=== PATIENT | male | born 1930 | race Caucasian/White ===

== ENCOUNTER 2016-05-26 10:33 | Inpatient (IN) ==
[2016-05-26] MEDS ORDERED: ASPIRIN 81 MG TAB.CHEW CHEWED ONE (10:55)
--- NOTE | 2016-05-26 10:59 | Emergency Department Note ---
Chest Pain HPI - General Chief Complaint: Chest Pain Stated Complaint: shortness of breath, chest pain Time Seen by Provider: 05/26/16 10:55 Source: patient, EMS Mode of arrival: EMS - History of Present Illness HPI Narrative: 85-year-old in by ambulance, complaining of left hip pain and a history of chest pain for several days. Complain of shortness of breath. Patient is a poor historian, unable to get an accurate history. sharp-like pain . Past several days, chronic shortness of breath. he is afebrile. - Related Data Home Medications Medication Instructions Recorded Confirmed Acetaminophen [Tylenol] 325 mg PO Q4HP PRN 05/26/16 05/26/16 Amantadine HCl [Amantadine] 100 mg PO DAILY 05/26/16 05/26/16 Aspirin [Aron Chewable Aspirin] 81 mg PO DAILY 05/26/16 05/26/16 Baclofen [Lioresal] 10 mg PO TID 05/26/16 05/26/16 Calcium/Mag Oxide/Vitamin D3 1 each PO DAILY 05/26/16 05/26/16 [Coral Calcium 1,000 mg Cap] Carvedilol [Coreg] 6.25 mg PO BID 05/26/16 05/26/16 Cholecalciferol (Vitamin D3) 4,000 unit PO DAILY 05/26/16 05/26/16 [Vitamin D3] Citalopram [Celexa] 20 mg PO DAILY 05/26/16 05/26/16 Diltiazem HCl [Cartia Xt] 240 mg PO DAILY 05/26/16 05/26/16 Gabapentin [Neurontin] 200 mg PO BID 05/26/16 05/26/16 Insulin NPH Hum/Reg Insulin Hm 5 unit SQ HS 05/26/16 05/27/16 [Humulin 70/30 Kwikpen] Insulin NPH Hum/Reg Insulin Hm 8 unit SQ DAILY 05/26/16 05/26/16 [Humulin 70/30 Kwikpen] Levothyroxine Sodium [Tirosint] 50 mcg PO DAILY 05/26/16 05/26/16 Mirtazapine [Remeron] 15 mg PO DAILY 05/26/16 05/26/16 Simethicone [Mylicon] 1 each PO TID 05/26/16 05/26/16 Spironolactone [Aldactone] 12.5 mg PO Q2D 05/26/16 05/26/16 Thymol/Chlorophyllin [Chlorophyll 1 each PO BID 05/26/16 05/26/16 3 mg Tablet] Warfarin [Coumadin] 3 mg PO DAILY 05/26/16 05/26/16 morphine SULFATE [Morphine Sulfate] 15 mg PO BID 05/26/16 05/26/16 morphine SULFATE [Morphine Sulfate] 15 mg PO DAILY 05/26/16 05/26/16 rOPINIRole HCL [Requip] 0.5 mg PO BID 05/26/16 05/26/16 Allergies Allergy/AdvReac Type Severity Reaction Status Date / Time From MIRAPEX AdvReac Mild INCREASED Uncoded 10/05/14 14:09 CONFUSION Review of Systems All systems ED: reviewed and negative except as stated. Constitutional: Denies: fever Eyes: Denies: eye pain ENT ED: Denies: ear pain Cardiovascular: Reports: chest pain Respiratory: Reports: cough, dyspnea. Denies: wheezes, hemoptysis Chest Pain PMH - Past Medical History Medical history: Reports: atrial fibrillation, other (parkinsons) Family history: Reports: unable to obtain - Social History smoking status: Former smoker Alcohol use: Reports: None Drug use: Reports: none Physical Exam - General Limitations: no limitations - Head Head exam: atraumatic - Eye Eye exam: Present: normal appearance - ENT ENT exam: normal exam - Neck Neck exam: Present: normal inspection - Chest Chest inspection: Present: normal inspection - Respiratory Respiratory exam: Present: normal lung sounds bilaterally. Absent: respiratory distress - Cardiovascular Cardiovascular exam: Present: regular rate, normal rhythm. Absent: bradycardia , tachycardia - Abdominal Exam Abdominal exam: Present: soft. Absent: distention, tenderness - Extremities Exam Extremities exam: Present: normal inspection, full ROM. Absent: tenderness - Back Exam Back exam: Present: normal inspection, full ROM. Absent: tenderness - Neurological Exam Neurological exam: Present: alert, oriented X3, CN II-XII intact - Psychiatric Psychiatric exam: Present: normal affect, normal mood. Absent: depressed - Skin Skin exam: Present: warm, dry Course Vital Signs Temperature 97.4 F L 05/26/16 10:42 Pulse Rate 112 H 05/26/16 10:42 Respiratory Rate 36 H 05/26/16 10:42 Blood Pressure 170/100 05/26/16 10:42 Pulse Oximetry (%) 100 05/26/16 10:42 Temperature 98.4 F 05/27/16 04:00 Pulse Rate 107 H 05/27/16 07:38 Respiratory Rate 22 05/27/16 07:38 Blood Pressure 121/85 05/27/16 04:00 Pulse Oximetry (%) 95 05/27/16 07:36 Chest Pain - MDM Narrative Medical decision making narrative: left pneumonia on chest xray. Pt DNR comfort measures but antibiotics ok.. will hold celexa, started on rocephin and levaquin - Lab Data Result diagrams: 05/27/16 04:07 05/27/16 04:07 Lab Results 05/26/16 05/26/16 05/26/16 Range/Units 11:02 11:02 11:02 WBC 14.4 H (4.5-11.0) K/mcL RBC 3.67 L (4.50-5.90) M/mcL Hgb 11.8 L (13.5-16.5) g/dL Hct 36.8 L (41.0-55.0) % MCV 100.2 H (80.0-100.0) fL MCH 32.1 (26.0-34.0) pg MCHC 32.0 (31.0-36.0) g/dL RDW 14.9 H (11.5-14.5) % Plt Count 165 (140-440) K/mcL MPV 8.9 (7.4-10.4) fL Gran % 86.0 H (38.0-78.0) % Lymph % (Auto) 8.0 L (15.5-49.0) % [place] % (Auto) 5.4 (1.0-9.0) % Eos % (Auto) 0.6 (0.0-7.0) % Baso % (Auto) 0 (0.0-2.0) % Gran # 12.4 H (1.8-8.0) K/mcL Lymph # 1.1 L (1.5-4.8) K/mcL [place] # 0.8 (0.1-0.9) K/mcL Eos # 0.1 (0.0-0.7) K/mcL Baso # 0 (0.0-0.3) K/mcL Total Counted Seg Neutrophils % (38-78) % Band Neutrophils % Lymphocytes % (15-49) % Monocytes % (Manual) (1-9) % Myelocytes % (0-0) % Platelet Estimate (NORMAL) RBC Morphology (NORMAL) Macrocytosis (NONE SEEN) PT (11.9-14.5) sec INR (0.9-1.1) VBG Lactic Acid (0.5-2.2) mmol/L Sodium 142 (133-145) mmol/L Potassium 4.5 (3.3-5.1) mmol/L Chloride 99 (96-108) mmol/L Carbon Dioxide 27 (22-30) mmol/L Anion Gap 16.0 (8-16) BUN 28 H (8-23) mg/dl Creatinine 1.2 (0.7-1.2) mg/dl GFR Calculation 55 Glucose 123 H (70-105) mg/dL Hemoglobin A1c (4.0-6.0) % HGB Estim Average Glucose mg/dL Calcium 9.2 (8.6-10.4) mg/dl Total Bilirubin 0.7 (0.0-1.0) mg/dL AST 15 (0-37) U/l ALT < 5 (0-40) U/l Alkaline Phosphatase 127 H (39-117) U/L Total Creatine Kinase 48 (24-195) IU/L CK-MB (CK-2) 1.8 (0-4.9) ng/ml Myoglobin 84 H (28-72) ng/ml Troponin T < 0.01 (0-0.03) ng/ml Total Protein 6.6 (5.9-8.4) gm/dL Albumin 3.6 (3.2-5.2) gm/dL Globulin 3.0 (2.2-3.7) gm/dL Albumin/Globulin Ratio 1.2 (1.0-2.3) 05/26/16 05/26/16 05/26/16 Range/Units 11:02 11:02 11:02 WBC (4.5-11.0) K/mcL RBC (4.50-5.90) M/mcL Hgb (13.5-16.5) g/dL Hct (41.0-55.0) % MCV (80.0-100.0) fL MCH (26.0-34.0) pg MCHC (31.0-36.0) g/dL RDW (11.5-14.5) % Plt Count (140-440) K/mcL MPV (7.4-10.4) fL Gran % (38.0-78.0) % Lymph % (Auto) (15.5-49.0) % [place] % (Auto) (1.0-9.0) % Eos % (Auto) (0.0-7.0) % Baso % (Auto) (0.0-2.0) % Gran # (1.8-8.0) K/mcL Lymph # (1.5-4.8) K/mcL [place] # (0.1-0.9) K/mcL Eos # (0.0-0.7) K/mcL Baso # (0.0-0.3) K/mcL Total Counted 100 Seg Neutrophils % 90 H (38-78) % Band Neutrophils % Not Reportable Lymphocytes % 5 L (15-49) % Monocytes % (Manual) 3 (1-9) % Myelocytes % 2 H (0-0) % Platelet Estimate Normal (NORMAL) RBC Morphology Abnorm A (NORMAL) Macrocytosis 1+ A (NONE SEEN) PT 20.4 H (11.9-14.5) sec INR 1.7 H (0.9-1.1) VBG Lactic Acid 2.6 H (0.5-2.2) mmol/L Sodium (133-145) mmol/L Potassium (3.3-5.1) mmol/L Chloride (96-108) mmol/L Carbon Dioxide (22-30) mmol/L Anion Gap (8-16) BUN (8-23) mg/dl Creatinine (0.7-1.2) mg/dl GFR Calculation Glucose (70-105) mg/dL Hemoglobin A1c (4.0-6.0) % HGB Estim Average Glucose mg/dL Calcium (8.6-10.4) mg/dl Total Bilirubin (0.0-1.0) mg/dL AST (0-37) U/l ALT (0-40) U/l Alkaline Phosphatase (39-117) U/L Total Creatine Kinase (24-195) IU/L CK-MB (CK-2) (0-4.9) ng/ml Myoglobin (28-72) ng/ml Troponin T (0-0.03) ng/ml Total Protein (5.9-8.4) gm/dL Albumin (3.2-5.2) gm/dL Globulin (2.2-3.7) gm/dL Albumin/Globulin Ratio (1.0-2.3) 05/26/16 Range/Units 11:02 WBC (4.5-11.0) K/mcL RBC (4.50-5.90) M/mcL Hgb (13.5-16.5) g/dL Hct (41.0-55.0) % MCV (80.0-100.0) fL MCH (26.0-34.0) pg MCHC (31.0-36.0) g/dL RDW (11.5-14.5) % Plt Count (140-440) K/mcL MPV (7.4-10.4) fL Gran % (38.0-78.0) % Lymph % (Auto) (15.5-49.0) % [place] % (Auto) (1.0-9.0) % Eos % (Auto) (0.0-7.0) % Baso % (Auto) (0.0-2.0) % Gran # (1.8-8.0) K/mcL Lymph # (1.5-4.8) K/mcL [place] # (0.1-0.9) K/mcL Eos # (0.0-0.7) K/mcL Baso # (0.0-0.3) K/mcL Total Counted Seg Neutrophils % (38-78) % Band Neutrophils % Lymphocytes % (15-49) % Monocytes % (Manual) (1-9) % Myelocytes % (0-0) % Platelet Estimate (NORMAL) RBC Morphology (NORMAL) Macrocytosis (NONE SEEN) PT (11.9-14.5) sec INR (0.9-1.1) VBG Lactic Acid (0.5-2.2) mmol/L Sodium (133-145) mmol/L Potassium (3.3-5.1) mmol/L Chloride (96-108) mmol/L Carbon Dioxide (22-30) mmol/L Anion Gap (8-16) BUN (8-23) mg/dl Creatinine (0.7-1.2) mg/dl GFR Calculation Glucose (70-105) mg/dL Hemoglobin A1c 6.0 (4.0-6.0) % HGB Estim Average Glucose 126 mg/dL Calcium (8.6-10.4) mg/dl Total Bilirubin (0.0-1.0) mg/dL AST (0-37) U/l ALT (0-40) U/l Alkaline Phosphatase (39-117) U/L Total Creatine Kinase (24-195) IU/L CK-MB (CK-2) (0-4.9) ng/ml Myoglobin (28-72) ng/ml Troponin T (0-0.03) ng/ml Total Protein (5.9-8.4) gm/dL Albumin (3.2-5.2) gm/dL Globulin (2.2-3.7) gm/dL Albumin/Globulin Ratio (1.0-2.3) Disposition Clinical Impression: Pneumonia Disposition: Xfer As Inpt ([facility]) Condition: Undetermined
[2016-05-26 11:48] LABS: Basophils # (Auto) 0 K/mcL (0.0-0.3); Basophils % (Auto) 0 % (0.0-2.0); Eosinophils # (Auto) 0.1 K/mcL (0.0-0.7); Eosinophils % (Auto) 0.6 % (0.0-7.0); Lymphocytes # (Auto) 1.1 K/mcL (1.5-4.8); Mean Cell Volume 100.2 fL (80.0-100.0); Mean Corpuscular Hemoglobin 32.1 pg (26.0-34.0); Monocytes # (Auto) 0.8 K/mcL (0.1-0.9); Monocytes % (Auto) 5.4 % (1.0-9.0); Platelet Count 165 K/mcL (140-440); RBC 3.67 M/mcL (4.50-5.90); Red Cell Distribution Width 14.9 % (11.5-14.5)
--- NOTE | 2016-05-26 11:55 | XRay Report ---
CLINICAL INFORMATION: Parkinson's disease. Dyspnea. TECHNIQUE: AP and lateral chest x-ray performed with the patient on a stretcher. COMPARISON: Previous chest x-rays dated 11/09/2012, 04/09/2010, 06/16/2009. FINDINGS: Left lower lobe consolidation consistent with pneumonia. Findings consistent with left pleural effusion. Pulmonary vascularity is prominent consistent pulmonary congestion. No definite pulmonary edema. Heart size is within normal limits and unchanged since 2012. No acute thoracic compression fracture. Degenerative disease in both shoulders. IMPRESSION: Left lower lobe consolidation and probable left pleural effusion. Appearance is consistent with pneumonia. Interpreted and Authenticated by: Burt Dejesus 05/26/16
--- NOTE | 2016-05-26 11:58 | XRay Report ---
CLINICAL INFORMATION: Left hip pain. No trauma. TECHNIQUE: AP pelvis. Lateral left hip. COMPARISON: None. FINDINGS: Moderate narrowing of both hip joint spaces. Changes are bilaterally symmetric. No significant acetabular or femoral head sclerosis or subchondral cystic change. Articular surface of the left femoral head is round and smooth. No evidence for avascular necrosis. No lytic lesions. Pelvis is negative. No lytic lesions. No fracture. Degenerative change at the pubic symphysis. Sacrum is not optimally visualized but appears normal. Large amount of fecal material within the colon suggests constipation. IMPRESSION: 1. Moderate degenerative disease in the left hip. Changes are bilaterally symmetric. 2. No acute abnormality. Interpreted and Authenticated by: Burt Dejesus 05/26/16
[2016-05-26 12:09] LABS: ALT/SGPT < 5 U/l (0-40); Albumin 3.6 gm/dL (3.2-5.2); Albumin/Globulin Ratio 1.2 (1.0-2.3); Alkaline Phosphatase 127 U/L (39-117); Blood Urea Nitrogen 28 mg/dl (8-23); Creatine Kinase 48 IU/L (24-195); Creatine Kinase MB 1.8 ng/ml (0-4.9); Myoglobin 84 ng/ml (28-72)
[2016-05-26] MEDS ORDERED: cefTRIAXone 1 GM in DEXTROSE 5% IN WATER 50 ML IV ONE (12:33)
[2016-05-26] MEDS ORDERED: LEVOFLOXACIN 500 MG/100 ML BAG IV ONE (12:35)
[2016-05-26 13:58] LABS: Lymphocytes % 5 % (15-49); Macrocytosis 1+ (NONE SEEN); Monocytes % (Manual) 3 % (1-9); Myelocytes % 2 % (0-0); Platelet Estimate NORMAL (NORMAL); RBC Morphology ABNORM (NORMAL); Segmented Neutrophils % 90 % (38-78)
[2016-05-26] MEDS ORDERED: MAGNESIUM HYDROXIDE 30 ML ORAL.SUSP PO PRN (17:02)
[2016-05-26] MEDS ORDERED: ONDANSETRON 4 MG/2 ML VIAL IV PRN (17:02)
[2016-05-26] MEDS ORDERED: ACETAMINOPHEN 325 MG TABLET PO PRN (17:02)
[2016-05-26] MEDS ORDERED: DOCUSATE SODIUM 100 MG CAPSULE PO PRN (17:02)
[2016-05-26] MEDS ORDERED: DEXTROSE 50% 50 ML VIAL IV PRN (17:02)
[2016-05-26] MEDS: DEXTROSE 5%-1/2NS W/10MEQ KCL 1,000 ML IV SCH (17:35)
[2016-05-26] MEDS: INSULIN LISPRO 1 UNIT/0.01 ML UNIT SQ SCH ×2 (17:56→21:26)
[2016-05-26] MEDS: AZITHROMYCIN 500 MG in DEXTROSE 5% IN WATER 250 ML IV SCH (19:04)
[2016-05-26] MEDS: ALBUTEROL SULFATE 2.5 MG/3 ML NEBULIZER NEB SCH (19:04)
--- NOTE | 2016-05-26 19:14 | Internal Med History&Physical ---
Medical - H&P: HPI Patient information: Note initiated : 05/26/16 at 6:58 pm Service Date, if different from initiated Date: [] Patient: August Nath 85 y/o M admitted on 05/26/16 for shortness of breath, chest pain. Chief Complaint: [] History of present illness: Mr. Nath is a 85 year old male as Parkinson's disease and diabetes, and resides at a [facility]. He reports he has not felt well for several days, and his niece was calledtodayby the staff to say that he had a fever and hypoxia and shortness of breath. He was transported to the emergency room for further evaluation. There he was found to have a left lower lobe pneumonia, and O2 saturations in the 80s, as well as leukocytosis and elevated lactic acid. the patient was somewhat obtunded on arrival, butseveral hours after ER treatment is starting to feel better. He notes that he has been feeling a little short of breath for the past week or so, and does have been having some chest discomfort as well. He mentions he cannot eat, but has difficulty articulating if that is because he is not hungry. His niece notes that his dentures tend to fall out. The patientsays he has been feeling a little dizzy, and believes he has had a cough for a week or 2, which is mostly nonproductive. He has been feeling short of breath. He says he has both diarrhea and constipation, but that that is chronic. He also has chronic urinary frequency. He otherwise denies chills, headaches, ear pain or sore throat. He denies abdominal pain, nausea or vomiting . Past medical history: Per [facility] records: Type 2 diabetes parkinson's disease Atrial fibrillation Hyperlipidemia Depression and anxiety GERD Hypothyroidism Hypertension Non-thrombocytopenic purpura Bursitis Constipation Vitamin D deficiency Dry eye syndrome Generalized osteoarthritis Current medications: Tylenol 325 mg every 4 hours when necessary Amantadine 50 mg per 5 mL. 10 mL by mouth daily Artificial tears 1 drop in both eyes 3 times a day Aspirin 81 mg daily at bedtime Baclofen 10 mg 3 times a day Coreg 6.25 mg by mouth twice a day Polyethylene glycol 17 g by mouth daily Protonix 40 mg daily pycnogenol one daily Requip 0.5 mg twice a day Senna 2 tabs daily at bedtime Simethicone 80 mg 4 times a day Sinemet 38286 tab once a day, 2 tabs once a day Sinemet 38369 1 tab 5 times a day Spironolactone 12.5 mgevery other day Celexa 20 mgdaily chloral fill tablet 1 twice a day Calcium one tablet daily Coumadin 3 mg daily at bedtime Diltiazem ER 240 mg daily Docusate sodium 250 mg every morning Dulcolax suppository when necessary Fleets enema when necessary gabapentin 200 mg 3 times a day Humulin 70/38 units every morning, 5 units every afternoon levothyroxine 50 g daily at bedtime Milk of magnesia when necessary Mirtazapine 15 mg daily at bedtime Morphine 15 mg daily when necessary chest pain Morphine 15 mg twice a day Nitroglycerin patch 0.1 mg per hour daily at bedtimeS sublingual nitroglycerin when necessary Triamcinolone cream 0.1% apply to arms and neck every shift when necessary Vitamin D 4000 units daily Allergies:Mirapex family history; Mother had liver cancer. Mother and sister and brother had diabetes. Social history: Patient quit smoking 20 years ago. He has not had alcohol for many years. He has not used drugs. He resides at the [facility]. Medical - H&P: Meds Home Medications Medication Instructions Recorded Confirmed Type Acetaminophen [Tylenol] 325 mg PO Q4HP PRN 05/26/16 05/26/16 History Amantadine HCl [Amantadine] 100 mg PO DAILY 05/26/16 05/26/16 History Aspirin [Aron Chewable Aspirin] 81 mg PO DAILY 05/26/16 05/26/16 History Baclofen [Lioresal] 10 mg PO TID 05/26/16 05/26/16 History Calcium/Mag Oxide/Vitamin D3 1 each PO DAILY 05/26/16 05/26/16 History [Coral Calcium 1,000 mg Cap] Carvedilol [Coreg] 6.25 mg PO BID 05/26/16 05/26/16 History Cholecalciferol (Vitamin D3) 4,000 unit PO DAILY 05/26/16 05/26/16 History [Vitamin D3] Citalopram [Celexa] 20 mg PO DAILY 05/26/16 05/26/16 History Diltiazem HCl [Cartia Xt] 240 mg PO DAILY 05/26/16 05/26/16 History Gabapentin [Neurontin] 200 mg PO BID 05/26/16 05/26/16 History Insulin NPH Hum/Reg Insulin Hm 5 unit SQ 05/26/16 History [Humulin 70/30 Kwikpen] Insulin NPH Hum/Reg Insulin Hm 8 unit SQ DAILY 05/26/16 05/26/16 History [Humulin 70/30 Kwikpen] Levothyroxine Sodium [Tirosint] 50 mcg PO DAILY 05/26/16 05/26/16 History Mirtazapine [Remeron] 15 mg PO DAILY 05/26/16 05/26/16 History Simethicone [Mylicon] 1 each PO TID 05/26/16 05/26/16 History Spironolactone [Aldactone] 12.5 mg PO Q2D 05/26/16 05/26/16 History Thymol/Chlorophyllin [Chlorophyll 1 each PO BID 05/26/16 05/26/16 History 3 mg Tablet] Warfarin [Coumadin] 3 mg PO DAILY 05/26/16 05/26/16 History morphine SULFATE [Morphine Sulfate] 15 mg PO BID 05/26/16 05/26/16 History morphine SULFATE [Morphine Sulfate] 15 mg PO DAILY 05/26/16 05/26/16 History rOPINIRole HCL [Requip] 0.5 mg PO BID 05/26/16 05/26/16 History Allergies Allergy/AdvReac Type Severity Reaction Status Date / Time From MIRAPEX AdvReac Mild INCREASED Uncoded 10/05/14 14:09 CONFUSION Medical - H&P: Exam - Constitutional Vitals: Temp Pulse Resp BP Pulse Ox 98.3 F 92 H 22 120/73 98 05/26/16 16:45 05/26/16 16:45 05/26/16 16:45 05/26/16 16:45 05/26/16 16:45 Exam: on exam,initially the patient did appear somewhat obtunded, but he was able to wake up and answer questions. He has very coarse gurgling respirations. he reports he is having some persistent left hip pain, of uncertain etiology, but that's been going on for a while. Head: Normocephalic, atraumatic. Ears: TMs and canals are fairly clear. eyes: PERRLA, EOMI, anicteric. Pharynx: Patient is edentulous. Mucosa is markedly dry. Neck: Somewhat stiff. But does not appear painful. Neck veins do appear full. There is no obviouslymphadenopathy, bruits, thyromegaly. Cardiac exam:rhythm appears irregularly irregular. no murmurs or rubs are appreciated. Lungs: The patient has some crackles noted at the left base,but generally speaking breath sounds are very loud and coarse throughout, with expiratory wheezes and a lot of gurgling upper airway noises well. Abdomen: Is soft and nontender with no obvious masses. Extremities: Show just a trace edema. He does have compression hose in place. Pulses are not easily palpable. Neurologic: The patient was somewhat sleepy, but was ableto wake up enough to answer questions. His voice is very soft and difficult to understand. He does appear oriented. He answers questions appropriately. He is able to follow commands. He does appear very generally weak, but I did not see any focal weakness. I did not notice any obvious tremor today. Skin exam: I do not note any worrisome skin lesions. He does have some chronic stasis dermatitis changes on his legs. Medical - H&P: Reslt - Labs CBC & Chem 7: 05/26/16 11:02 05/26/16 11:02 Labs: ifferential shows 86% granulocytes, with 12,400 absolute granulocyte count. There is 1+ macrocytosis. Pro time is 20 with INR of 1.7 Alkaline phosphatase is 127, but other LFTs essentially normal. Myoglobin is mildly elevated at 84. Troponin is normal. MRSA screen is negative. Chest x-ray shows left lower lobe consolidation consistent with pneumonia and left pleural effusion. There may be mild pulmonary vascular congestion. X-ray of the left hip shows moderate degenerative disease . There is a large amount of stool in the colon.next EKG showsan irregularly irregular rhythm, with evidence of previous inferior CT There is slow R-wave progression consistent with possible previousanterior CT. This is similar in appearance to an x-ray from August 2015. Medical - H&P: A/P (1) LLL pneumonia Current visit: Yes Status: Acute (2) DM type 2 (diabetes mellitus, type 2) Current visit: Yes Status: Acute (3) Parkinson disease Current visit: Yes Status: Acute (4) Atrial fibrillation Current visit: Yes Status: Acute (5) Left hip pain Current visit: Yes Status: Acute - Narrative A/P Narrative: 31. Pulmonary. -This patient presents with signs and symptoms of acute respiratory failure due to left lower lobe pneumonia, associated with hypoxia and leukocytosis. -The patient has been admitted to telemetry, for aggressive treatment with IV antibiotics, nebulized bronchodilators, oxygen. Incentive spirometry is also been ordered. He will be suctioned when necessary. #2. CODE STATUS: Patient has a DNR CODE STATUS, but his POA, his niece, would like to pursue aggressive treatment for pneumonia ,outside of ventilation and CPR. #3. DVT prophylaxis:continue Coumadin. Adjust dosage to keep INR between 2 and 3. #4. Cardiac. History of atrial fibrillation and ischemic cardiomyopathy. Continue current medications. #5. Neurologic. History of Parkinson's disease. He is also somewhat obtunded today, likely related to his acute illness. Continue usual Parkinson's medications, as tolerated. #6. Left hip pain, uncertain etiology. Pain meds when necessary. This visit took approximately 65 minutes, to [facility], review his case with the ER [facility] and with the patient's niece, interview and examine him, and write orders. Medical - H&P: Qual - VTE Deep Vein Thrombosis/Pulmonary Embolism Present on Admission: No
[2016-05-26] MEDS: INSULIN, 75/25 NPL/LISPRO 1 UNIT/0.01 ML UNIT SQ SCH (20:58)
[2016-05-26] MEDS: WARFARIN 3 MG TABLET PO SCH (20:59)
[2016-05-26] MEDS ORDERED: INSULIN NPH HUM SQ SCH (21:00)
[2016-05-26] MEDS ORDERED: [UNRECOGNIZED DRUG - OTHER] SQ SCH (21:00)
[2016-05-26] MEDS ORDERED: REG INSULIN SQ SCH (21:00)
[2016-05-26] MEDS: rOPINIRole 0.25 MG TABLET PO SCH (21:22)
[2016-05-26] MEDS: GABAPENTIN 100 MG CAPSULE PO SCH (21:22)
[2016-05-26] MEDS: BACLOFEN 10 MG TABLET PO SCH (21:24)
[2016-05-26] MEDS: morphine 15 MG TABLET PO SCH (21:25)
[2016-05-26] MEDS: CARVEDILOL 6.25 MG TABLET PO SCH (21:25)
[2016-05-26] MEDS: [UNRECOGNIZED DRUG - OTHER] PO SCH (21:26)
[2016-05-27] MEDS: ALBUTEROL SULFATE 2.5 MG/3 ML NEBULIZER NEB SCH ×4 (01:19→19:20)
[2016-05-27] MEDS: DEXTROSE 5%-1/2NS W/10MEQ KCL 1,000 ML IV SCH (05:38)
[2016-05-27 07:21] LABS: ALT/SGPT 6 U/l (0-40); Albumin 2.9 gm/dL (3.2-5.2); Alkaline Phosphatase 101 U/L (39-117); Blood Urea Nitrogen 27 mg/dl (8-23)
[2016-05-27 07:31] LABS: Basophils # (Auto) 0 K/mcL (0.0-0.3); Basophils % (Auto) 0.3 % (0.0-2.0); Eosinophils # (Auto) 0.1 K/mcL (0.0-0.7); Granulocytes % (Auto) 82.6 % (38.0-78.0); Lymphocytes # (Auto) 0.6 K/mcL (1.5-4.8); Lymphocytes % (Auto) 8.9 % (15.5-49.0); Mean Corpuscular HGB Conc 33.3 g/dL (31.0-36.0); Mean Corpuscular Hemoglobin 32.3 pg (26.0-34.0); Monocytes # (Auto) 0.5 K/mcL (0.1-0.9); Monocytes % (Auto) 7.2 % (1.0-9.0); Platelet Count 106 K/mcL (140-440); RBC 3.35 M/mcL (4.50-5.90); Red Cell Distribution Width 13.7 % (11.5-14.5)
[2016-05-27] MEDS: INSULIN LISPRO 1 UNIT/0.01 ML UNIT SQ SCH ×4 (08:50→20:52)
[2016-05-27] MEDS: LEVOTHYROXINE 50 MCG TABLET PO SCH (08:56)
[2016-05-27] MEDS: CALCIUM W/VIT D3 500 MG TABLET PO SCH (08:57)
[2016-05-27] MEDS: rOPINIRole 0.25 MG TABLET PO SCH ×2 (08:57→20:53)
[2016-05-27] MEDS: GABAPENTIN 100 MG CAPSULE PO SCH ×2 (08:57→20:53)
[2016-05-27] MEDS: DILTIAZEM 240 MG CAP.XL.24H PO SCH (08:57)
[2016-05-27] MEDS: morphine 15 MG TABLET PO SCH ×2 (08:58→20:52)
[2016-05-27] MEDS: ASPIRIN 81 MG TAB.CHEW PO SCH (08:58)
[2016-05-27] MEDS: BACLOFEN 10 MG TABLET PO SCH ×3 (08:58→20:52)
[2016-05-27] MEDS: MIRTAZAPINE 15 MG TABLET PO SCH (08:58)
[2016-05-27] MEDS: VITAMIN D3 1,000 UNIT TABLET PO SCH (08:59)
[2016-05-27] MEDS: CITALOPRAM 20 MG TABLET PO SCH (08:59)
[2016-05-27] MEDS: CARVEDILOL 6.25 MG TABLET PO SCH ×2 (08:59→20:51)
[2016-05-27] MEDS ORDERED: [UNRECOGNIZED DRUG - OTHER] SQ SCH (09:00)
[2016-05-27] MEDS ORDERED: REG INSULIN SQ SCH (09:00)
[2016-05-27] MEDS ORDERED: INSULIN NPH HUM SQ SCH (09:00)
[2016-05-27] MEDS: AMANTADINE HCL 100 MG CAPSULE PO SCH (09:09)
[2016-05-27] MEDS: INSULIN, 75/25 NPL/LISPRO 1 UNIT/0.01 ML UNIT SQ SCH ×2 (09:13→17:25)
[2016-05-27] MEDS: [UNRECOGNIZED DRUG - OTHER] PO SCH ×2 (09:16→19:38)
[2016-05-27] MEDS: cefTRIAXone 1 GM in DEXTROSE 5% IN WATER 50 ML IV SCH (09:16)
[2016-05-27] MEDS: AZITHROMYCIN 500 MG in DEXTROSE 5% IN WATER 250 ML IV SCH (09:47)
--- NOTE | 2016-05-27 10:45 | Internal Med Progress Note ---
Medical - PN: Subj Patient information: Note initiated : 05/27/16 at 10:45 am Service Date, if different from initiated Date: [] Patient: August Nath 85 y/o M admitted on 05/26/16 for shortness of breath, chest pain. Chief Complaint: [] Interval history: May 26, 2016:History of present illness: Mr. Nath is a 85 year old male as Parkinson's disease and diabetes, and resides at a [place] [facility]. He reports he has not felt well for several days, and his niece was called todayby the staff to say that he had a fever and hypoxia and shortness of breath. He was transported to the emergency room for further evaluation. There he was found to have a left lower lobe pneumonia, and O2 saturations in the 80s, as well as leukocytosis and elevated lactic acid. the patient was somewhat obtunded on arrival, but several hours after ER treatment is starting to feel better. He notes that he has been feeling a little short of breath for the past week or so, and does have been having some chest discomfort as well. He mentions he cannot eat, but has difficulty articulating if that is because he is not hungry. His niece notes that his dentures tend to fall out. The patient says he has been feeling a little dizzy, and believes he has had a cough for a week or 2, which is mostly nonproductive. He has been feeling short of breath. He says he has both diarrhea and constipation, but that that is chronic. He also has chronic urinary frequency. He otherwise denies chills, headaches, ear pain or sore throat. He denies abdominal pain, nausea or vomiting. May 27, 2016: Today, the patient says he is feeling a little better. He is not having as much left hip pain. He is still having a loose wet cough, and moderate shortness of breath, but says overall he feels a little better. otherwise, he denies subjective fever or chills and anynew chest pain over his chronic chest pain. He denies significant abdominal pain, nausea or vomiting. Nurses noted he is still incontinent of both stool and urine, which they think is his baseline, although my understanding is that it may not be. Speech is still very soft and difficult to understand, and muscles are still somewhat rigid due to his Parkinson's. - Constitutional Vitals: Vital Signs Temp Pulse Resp BP Pulse Ox 98.8 F 118 H 20 149/109 97 05/27/16 08:00 05/27/16 08:00 05/27/16 08:00 05/27/16 08:00 05/27/16 08:00 Period Temp Pulse Resp BP Sys/Woodward Pulse Ox Last 24 Hr 97.6 F-98.8 F 87-118 12-22 101-149/66-109 92-97 Intake and Output 05/26/16 05/27/16 05/27/16 21:59 05:59 13:59 Intake Total 100 / 100 952 / 952 298 / 298 Output Total Balance 99 / 99 951 / 951 298 / 298 Weight 169 lb 14.4 oz Intake & Output: Intake & Output 05/26/16 05/27/16 05/27/16 21:59 05:59 13:59 Intake Total 100 / 100 952 / 952 298 / 298 Output Total Balance 99 / 99 951 / 951 298 / 298 Weight 169 lb 14.4 oz Intake: IV 100 / 100 902 / 902 298 / 298 Dextrose 5% in Water 250 250 / 250 ml @ 250 mls/hr IV Q24H ION with Zithromax 500 mg Rx#:[id number] Dextrose 5%-1/2Ns W/10Meq 902 / 902 KCl 1,000 ml @ 75 mls/hr IV .[id number] ION Rx#: [id number] LEVAQUIN 500 mg In 100 ml 100 / 100 @ 100 mls/hr IV ONCE ONE Rx#:[id number] Dextrose 5% in Water 50 48 / 48 ml @ 100 mls/hr IV Q24H ION with Rocephin 1 gm Rx #:[id number] Oral 50 / 50 Output: # of times incontinent of urine Exam: n exam, he is a frail elderly man, who is sleeping in bed with his head hunched forward which the nurses noticed due to his kyphosis. He awakens fairly easily to verbal stimulation. cardiac exam shows an irregularly irregular rhythm, without obvious murmurs or rubs. Lungs:He continues to have gurgling upper airway sounds. He has rales and rhonchi in the left lower and mid lung lawson. He has some soft expiratory wheezing diffusely. Lung lawson to seem a bit clearer than yesterday. Abdomen: Is soft and nontender. Extremities: Show minimal edema Neurologic:Not much tremor is noted today, but he continues to have what appears to be psychomotor slowing and rigidity. Medical - PN: Obj Da - Labs CBC & Chem 7: 05/27/16 04:07 05/27/16 04:07 Labs: Abnormal Lab Results 05/27/16 05/27/16 05/27/16 09:05 04:07 04:07 RBC 3.35 L Hgb 10.8 L Hct 32.5 L Plt Count 106 L Gran % 82.6 H Lymph % (Auto) 8.9 L Lymph # 0.6 L PT 26.1 H INR 2.3 H BUN 27 H Glucose 120 H Calcium 8.5 L Total Protein 5.8 L Albumin 2.9 L May 26: Troponin is normal. MRSA screen is negative. Chest x-ray shows left lower lobe consolidation consistent with pneumonia and left pleural effusion. There may be mild pulmonary vascular congestion. X-ray of the left hip shows moderate degenerative disease . There is a large amount of stool in the colon.next EKG shows an irregularly irregular rhythm, with evidence of previous inferior UT There is slow R-wave progression consistent with possible previousanterior UT. This is similar in appearance to an x-ray from August 2015. Meds: Medications Acetaminophen (Tylenol) 650 mg PO Q6HP PRN PRN Reason: PAIN/FEVER > 101 Albuterol Sulfate (Ventolin) 2.5 mg NEB Q6HRT ON LICENSE OF [facility] Last Admin: 05/27/16 07:25 Dose: 2.5 mg Amantadine HCl (Amantadine) 100 mg PO DAILY ON LICENSE OF [facility] Last Admin: 05/27/16 09:09 Dose: Not Given Aspirin (Aspirin) 81 mg PO DAILY ON LICENSE OF [facility] Last Admin: 05/27/16 08:58 Dose: 81 mg Baclofen (Lioresal) 10 mg PO TID ON LICENSE OF [facility] Last Admin: 05/27/16 08:58 Dose: 10 mg Calcium/Vitamin D (Calcium W/Vit D3) 500 mg PO DAILY ON LICENSE OF [facility] Last Admin: 05/27/16 08:57 Dose: 500 mg Carvedilol (Coreg) 6.25 mg PO BID ON LICENSE OF [facility] Last Admin: 01/24/17 08:59 Dose: 6.25 mg Citalopram Hydrobromide (Celexa) 20 mg PO DAILY ON LICENSE OF [facility] Last Admin: 05/27/16 08:59 Dose: 20 mg Dextrose (Dextrose 50%) 0 ml IV UD PRN PRN Reason: Hypoglycemia Diagnostic Test (Pha) (Accu-Chek) 1 each FS ACHS ON LICENSE OF [facility] Last Admin: 05/27/16 08:50 Dose: 1 each Diltiazem HCl (Cardizem Cd) 240 mg PO DAILY ON LICENSE OF [facility] Last Admin: 05/27/16 08:57 Dose: 240 mg Docusate Sodium (Colace) 100 mg PO BID PRN PRN Reason: Constipation Gabapentin (Neurontin) 200 mg PO BID ON LICENSE OF [facility] Last Admin: 05/27/16 08:57 Dose: 200 mg Azithromycin 500 mg/ Dextrose 250 mls @ 250 mls/hr IV Q24H ON LICENSE OF [facility] Stop: 05/28/16 18:59 Last Admin: 05/27/16 09:47 Dose: 250 mls/hr Potassium Chloride/Dextrose/Sod Cl (Dextrose 5%-1/2ns W/10meq Kcl) 1,000 mls @ 75 mls/hr IV .[id number] ON LICENSE OF [facility] Last Admin: 05/27/16 05:38 Dose: 75 mls/hr Ceftriaxone Sodium 1 gm/ (Dextrose) 50 mls @ 100 mls/hr IV Q24H ON LICENSE OF [facility] Last Infusion: 05/27/16 09:45 Dose: 0 mls/hr Insulin Human Lispro (Humalog) 0 unit SQ [facility] ON LICENSE OF [facility] PRN Reason: Protocol Last Admin: 05/27/16 08:50 Dose: Not Given Insulin Lispro Protam/Lispro Human (Humalog 75/25) 8 unit SQ ACB ON LICENSE OF [facility] Last Admin: 05/27/16 09:13 Dose: 8 unit Insulin Lispro Protam/Lispro Human (Humalog 75/25) 5 unit SQ ACS ON LICENSE OF [facility] Last Admin: 05/26/16 20:58 Dose: 5 unit Levothyroxine Sodium (Synthroid) 50 mcg PO QAMAC ON LICENSE OF [facility] Last Admin: 05/27/16 08:56 Dose: 50 mcg Magnesium Hydroxide (Milk Of Magnesia) 30 ml PO DAILYP PRN PRN Reason: Constipation Mirtazapine (Remeron) 15 mg PO DAILY ON LICENSE OF [facility] Last Admin: 05/27/16 08:58 Dose: 15 mg Morphine Sulfate (Morphine) 15 mg PO BID ON LICENSE OF [facility] Last Admin: 05/27/16 08:58 Dose: 15 mg Ondansetron HCl (Zofran) 4 mg IV Q4HP PRN PRN Reason: Nausea And Vomiting Thymol/Chlorophyllin [Chlorophyll 3 Mg Tablet 1 dose PO BID ON LICENSE OF [facility] Last Admin: 05/27/16 09:16 Dose: Not Given Ropinirole HCl (Requip) 0.5 mg PO BID ON LICENSE OF [facility] Last Admin: 05/27/16 08:57 Dose: 0.5 mg Spironolactone (Aldactone) 12.5 mg PO Q2D ON LICENSE OF [facility] Vitamin D (Vitamin D3) 4,000 unit PO DAILY ON LICENSE OF [facility] Last Admin: 05/27/16 08:59 Dose: 4,000 unit Warfarin Sodium (Coumadin) 3 mg PO DAILY@1400 ON LICENSE OF [facility] Last Admin: 05/26/16 20:59 Dose: 3 mg Medical - PN: A/P - Time Spent With Patient Total time spent is greater than 50% in coordination of care (as documented) at patient's floor/unit and/or counseling patient: (1) LLL pneumonia Status: Acute Current Visit: Yes (2) DM type 2 (diabetes mellitus, type 2) Status: Acute Current Visit: Yes (3) Parkinson disease Status: Acute Current Visit: Yes (4) Atrial fibrillation Status: Acute Current Visit: Yes (5) Left hip pain Status: Acute Current Visit: Yes - Narrative A/P Narrative: #1. Pulmonary. -This patient presents with signs and symptoms of acute respiratory failure due to left lower lobe pneumonia, associated with hypoxia and leukocytosis. The patient has been admitted to telemetry, for aggressive treatment with IV antibiotics, nebulized bronchodilators, oxygen. Incentive spirometry and when necessary suctioning has also been ordered. -the patient is doing well maintaining his O2 saturations. However he continues to have a very weak cough. We will continue to encourage deep breathing and cough, and continue with IV antibiotics. Leukocytosis is much improved. -check follow-up chest x-ray in the morning. #2. CODE STATUS: Patient has a DNR CODE STATUS, but his POA, his niece, would like to pursue aggressive treatment for pneumonia ,outside of ventilation and CPR. #3. DVT prophylaxis:continue Coumadin. Adjust dosage to keep INR between 2 and 3. in therapeutic range today. #4. Cardiac. History of atrial fibrillation and ischemic cardiomyopathy. Continue current medications. -Heart rate is a bit elevated today, possibly from bronchodilators. Continue to follow. #5. Neurologic. History of Parkinson's disease. e is a little more alert today. We will continue with his usual Parkinson's regimen as tolerated. #6. Left hip pain, uncertain etiology. -this seems improved today. When he is more able we will try to get him up with physical therapy. #7. Platelets are a bit low today. This will be monitored daily.there are no current signs of bleeding. #8. Fluids and nutrition. the patient appears to be under nourished. Request dietary consult. #9. Anemia slightly worse today, after hydration. Continue to monitor. This visit is taken approximately 25 minutes of far today, to review test results, interview and examine the patient, review plan of care with nursing staff, and write orders. Medical - PN: Qual - VTE Deep Vein Thrombosis/Pulmonary Embolism Present on Admission: No
[2016-05-27] MEDS: CARBIDOPA/LEVODOPA 10/100 TABLET PO SCH ×2 (14:34→14:55)
[2016-05-27] MEDS: WARFARIN 3 MG TABLET PO SCH (14:34)
[2016-05-27] MEDS: CARBIDOPA/LEVODOPA 25/250 TABLET PO SCH ×2 (14:54→17:31)
[2016-05-27] MEDS ORDERED: LORazepam 2 MG/ML VIAL IV PRN (16:20)
--- NOTE | 2016-05-27 16:51 | XRay Report ---
CLINICAL INFORMATION: Pneumonia TECHNIQUE: Upright AP portable chest x-ray COMPARISON: Previous chest x-rays dated 05/26/2016, 11/09/2012. FINDINGS: Dense left lower lobe consolidation and probable left pleural fluid collection. Findings are slightly worse than on previous examination. Mild right basilar infiltrate and small effusion are worsened on previous examination. There is cardiomegaly. The lobe pulmonary vessels are prominent consistent with pulmonary congestion. IMPRESSION: 1. Dense left lower lobe consolidation consistent with pneumonia. Findings are slightly worse then on 05/26/2016. 2. Mild right basilar infiltrate and small effusion consistent with pneumonia. 3. Cardiomegaly and probable pulmonary congestion. Interpreted and Authenticated by: Burt Dejesus 05/27/16
[2016-05-27] MEDS: IPRATROPIUM 2.5 ML AMPUL.NEB NEB SCH (17:01)
[2016-05-28] MEDS: IPRATROPIUM 2.5 ML AMPUL.NEB NEB SCH ×2 (03:50→08:30)
[2016-05-28] MEDS: ALBUTEROL SULFATE 2.5 MG/3 ML NEBULIZER NEB SCH ×4 (03:50→19:21)
[2016-05-28] MEDS: CARBIDOPA/LEVODOPA 25/250 TABLET PO SCH ×5 (05:29→17:43)
[2016-05-28 07:12] LABS: ALT/SGPT < 5 U/l (0-40); Albumin 2.9 gm/dL (3.2-5.2); Alkaline Phosphatase 101 U/L (39-117); Blood Urea Nitrogen 25 mg/dl (8-23)
--- NOTE | 2016-05-28 08:03 | XRay Report ---
CLINICAL INFORMATION: Pneumonia TECHNIQUE: AP portable semiupright chest x-ray COMPARISON: 05/27/2016, 05/26/2016, 11/09/2012 FINDINGS: Bilateral diffuse pulmonary parenchymal infiltrates with dense left lower lobe consolidation. Infiltrates are significantly worse than on 05/27/2016. There are findings consistent bilateral pleural effusions. Findings are felt to be most consistent with pneumonia. Abnormality may still be secondary to pneumonia but pulmonary edema is possible. Clinical correlation follow-up radiograph recommended. IMPRESSION: 1. Increasing diffuse pulmonary parenchymal infiltrates. Findings may be secondary to pneumonia or pulmonary edema. 2. Findings consistent with bilateral pleural effusions. Interpreted and Authenticated by: Burt Dejesus 05/28/16
[2016-05-28] MEDS: INSULIN LISPRO 1 UNIT/0.01 ML UNIT SQ SCH ×4 (08:24→20:46)
[2016-05-28 08:32] LABS: Basophils # (Auto) 0 K/mcL (0.0-0.3); Basophils % (Auto) 0 % (0.0-2.0); Eosinophils # (Auto) 0 K/mcL (0.0-0.7); Eosinophils % (Auto) 0.1 % (0.0-7.0); Granulocytes % (Auto) 77.5 % (38.0-78.0); Lymphocytes % (Auto) 14.8 % (15.5-49.0); Mean Cell Volume 99.4 fL (80.0-100.0); Mean Corpuscular Hemoglobin 31.8 pg (26.0-34.0); Monocytes # (Auto) 0.5 K/mcL (0.1-0.9); Monocytes % (Auto) 7.6 % (1.0-9.0); Platelet Count 129 K/mcL (140-440); Red Cell Distribution Width 14.4 % (11.5-14.5)
[2016-05-28] MEDS: [UNRECOGNIZED DRUG - OTHER] PO SCH ×2 (09:27→20:37)
[2016-05-28] MEDS: ASPIRIN 81 MG TAB.CHEW PO SCH (09:37)
[2016-05-28] MEDS: CARVEDILOL 6.25 MG TABLET PO SCH ×2 (09:37→20:36)
[2016-05-28] MEDS: VITAMIN D3 1,000 UNIT TABLET PO SCH (09:37)
[2016-05-28] MEDS: GABAPENTIN 100 MG CAPSULE PO SCH ×2 (09:37→20:36)
[2016-05-28] MEDS: LEVOTHYROXINE 50 MCG TABLET PO SCH (09:37)
[2016-05-28] MEDS: rOPINIRole 0.25 MG TABLET PO SCH ×2 (09:37→20:37)
[2016-05-28] MEDS: MIRTAZAPINE 15 MG TABLET PO SCH (09:38)
[2016-05-28] MEDS: BACLOFEN 10 MG TABLET PO SCH ×3 (09:38→20:37)
[2016-05-28] MEDS: SPIRONOLACTONE 25 MG TABLET PO SCH (09:38)
[2016-05-28] MEDS: CALCIUM W/VIT D3 500 MG TABLET PO SCH (09:38)
[2016-05-28] MEDS: DILTIAZEM 240 MG CAP.XL.24H PO SCH (09:38)
[2016-05-28] MEDS ORDERED: ALBUTEROL SULFATE 2.5 MG/3 ML NEBULIZER NEB PRN (09:40)
[2016-05-28] MEDS: CARBIDOPA/LEVODOPA 10/100 TABLET PO SCH ×2 (09:42→12:48)
[2016-05-28] MEDS ORDERED: IPRATROPIUM 2.5 ML AMPUL.NEB NEB PRN (09:42)
[2016-05-28] MEDS: morphine 15 MG TABLET PO SCH ×2 (09:42→20:36)
[2016-05-28] MEDS: CITALOPRAM 20 MG TABLET PO SCH (09:42)
[2016-05-28] MEDS: cefTRIAXone 1 GM in DEXTROSE 5% IN WATER 50 ML IV SCH (09:46)
[2016-05-28] MEDS: AMANTADINE HCL 100 MG CAPSULE PO SCH (09:46)
--- NOTE | 2016-05-28 09:57 | Internal Med Progress Note ---
Medical - PN: Subj Patient information: Note initiated : 05/28/16 at 9:57 am Service Date, if different from initiated Date: [] Patient: August Nath 85 y/o M admitted on 05/26/16 for Shortness of Breath, Chest Pain/Pneumonia. Chief Complaint: [] Interval history: May 26, 2016:History of present illness: Mr. Nath is a 85 year old male as Parkinson's disease and diabetes, and resides at a [facility]. He reports he has not felt well for several days, and his niece was called todayby the staff to say that he had a fever and hypoxia and shortness of breath. He was transported to the emergency room for further evaluation. There he was found to have a left lower lobe pneumonia, and O2 saturations in the 80s, as well as leukocytosis and elevated lactic acid. the patient was somewhat obtunded on arrival, but several hours after ER treatment is starting to feel better. He notes that he has been feeling a little short of breath for the past week or so, and does have been having some chest discomfort as well. He mentions he cannot eat, but has difficulty articulating if that is because he is not hungry. His niece notes that his dentures tend to fall out. The patient says he has been feeling a little dizzy, and believes he has had a cough for a week or 2, which is mostly nonproductive. He has been feeling short of breath. He says he has both diarrhea and constipation, but that that is chronic. He also has chronic urinary frequency. He otherwise denies chills, headaches, ear pain or sore throat. He denies abdominal pain, nausea or vomiting. May 27, 2016: Today, the patient says he is feeling a little better. He is not having as much left hip pain. He is still having a loose wet cough, and moderate shortness of breath, but says overall he feels a little better. otherwise, he denies subjective fever or chills and anynew chest pain over his chronic chest pain. He denies significant abdominal pain, nausea or vomiting. Nurses noted he is still incontinent of both stool and urine, which they think is his baseline, although my understanding is that it may not be. Speech is still very soft and difficult to understand, and muscles are still somewhat rigid due to his Parkinson's. May 28, 2016 : Today, the patient says he thinks he is feeling better than yesterday. He feels he is working less hard to breathe. He does state today that he usually has no trouble chewing and swallowing food, but sometimes drinking liquids will make him cough to the point of gagging. Otherwise, he denies significant paincurrently, palpitations. He continues to have a moist cough which does not produce much phlegm. He did receive Atrovent nebulizers last night, that helped improve the upper airway gurgling noises he was making. He denies abdominal pain, nausea or vomiting or diarrhea. He continues to have intermittent incontinence of urine and stool. - Constitutional Vitals: Vital Signs Temp Pulse Resp BP Pulse Ox 98.0 F 106 H 22 161/94 95 05/28/16 08:00 05/28/16 08:32 05/28/16 08:32 05/28/16 08:00 05/28/16 08:00 Period Temp Pulse Resp BP Sys/Woodward Pulse Ox Last 24 Hr 97.9 F-98.9 F 87-114 16-36 117-161/74-95 95-98 Intake and Output 05/27/16 05/28/16 05/28/16 21:59 05:59 13:59 Intake Total 300 / 300 30 / 30 180 / 180 Output Total Balance 295 / 295 28 / 28 179 / 179 Weight 173 lb 9.6 oz Intake & Output: Intake & Output 05/27/16 05/28/16 05/28/16 21:59 05:59 13:59 Intake Total 300 / 300 30 / 30 180 / 180 Output Total 5 Balance 295 / 295 28 / 28 179 / 179 Weight 173 lb 9.6 oz Intake: IV 0 / 0 Dextrose 5% in Water 50 0 / 0 ml @ 100 mls/hr IV Q24H ION with Rocephin 1 gm Rx #:[id number] Oral 300 / 300 30 / 30 180 / 180 Output: # of times incontinent of 5 / 5 urine Other: Meal snack Percent of Meal Consumed 25% Feeding Ability Needs Supervision Exam: on exam, he is awake and alert when I enter the room. He is holding up his TV remote to his ear so that he can hear the TV better He seems in good spirits. Neck is hows an obvious lymphadenopathy. Neck veins appear to fill from above. Cardiac exam:irregularly irregular. Lungs: Lung sounds are diffusely coarse, with soft wheezes are heard in the right upper lobe. They seem to be less rhonchi in the left lower lobe today. There is no accessory muscle use. Abdomen: Is soft and nontender. Extremities: Show no significant edema. Neurologic: he does have his baseline tremor and mild muscle rigidity but otherwise exam is grossly nonfocal. Medical - PN: Obj Da - Labs CBC & Chem 7: 05/28/16 07:42 05/28/16 04:26 Labs: Abnormal Lab Results 05/28/16 05/28/16 05/28/16 07:42 04:26 04:26 RBC 3.40 L Hgb 10.8 L Hct 33.8 L Plt Count 129 L Gran % Lymph % (Auto) 14.8 L Lymph # 1.0 L PT 27.1 H INR 2.4 H BUN 25 H Glucose Calcium Total Protein 5.8 L Albumin 2.9 L 05/27/16 05/27/16 05/27/16 09:05 04:07 04:07 RBC 3.35 L Hgb 10.8 L Hct 32.5 L Plt Count 106 L Gran % 82.6 H Lymph % (Auto) 8.9 L Lymph # 0.6 L PT 26.1 H INR 2.3 H BUN 27 H Glucose 120 H Calcium 8.5 L Total Protein 5.8 L Albumin 2.9 L May 28; Chest x-ray: Increasing diffuse pulmonary parenchymal infiltrates suggesting either pneumonia or pulmonary edema. Bilateral pleural effusions. May 27:chest x-ray: Dense left lower lobe consolidation consistent with pneumonia. Mild right basilar infiltrate and small effusion consistent with pneumonia. Possible mild pulmonary congestion. May 26: Troponin is normal. MRSA screen is negative. Chest x-ray shows left lower lobe consolidation consistent with pneumonia and left pleural effusion. There may be mild pulmonary vascular congestion. X-ray of the left hip shows moderate degenerative disease . There is a large amount of stool in the colon.next EKG shows an irregularly irregular rhythm, with evidence of previous inferior AL There is slow R-wave progression consistent with possible previousanterior AL. This is similar in appearance to an x-ray from August 2015. Meds: Medications Acetaminophen (Tylenol) 650 mg PO Q6HP PRN PRN Reason: PAIN/FEVER > 101 Last Admin: 05/28/16 09:36 Dose: 650 mg Albuterol Sulfate (Ventolin) 2.5 mg NEB Q6HRT [facility] Last Admin: 05/28/16 07:13 Dose: 2.5 mg Albuterol Sulfate (Ventolin) 2.5 mg NEB Q2HP PRN PRN Reason: Shortness Of Breath Amantadine HCl (Amantadine) 100 mg PO DAILY [facility] Last Admin: 05/28/16 09:46 Dose: 100 mg Aspirin (Aspirin) 81 mg PO DAILY [facility] Last Admin: 05/28/16 09:37 Dose: 81 mg Baclofen (Lioresal) 10 mg PO TID [facility] Last Admin: 05/28/16 09:38 Dose: 10 mg Calcium/Vitamin D (Calcium W/Vit D3) 500 mg PO DAILY [facility] Last Admin: 05/28/16 09:38 Dose: 500 mg Carbidopa/Levodopa (Sinemet 10/100) 1 tab PO DAILY@1330 [facility] Last Admin: 05/27/16 14:55 Dose: 1 tab Carbidopa/Levodopa (Sinemet 25/250) 1 tab PO DAILY@0530,0830,1130 [facility] Last Admin: 05/28/16 09:43 Dose: 1 tab Carbidopa/Levodopa (Sinemet 10/100) 2 tab PO DAILY@1000 [facility] Last Admin: 05/28/16 09:42 Dose: 2 tab Carbidopa/Levodopa (Sinemet 25/250) 1 tab PO DAILY@1430,1730 [facility] Last Admin: 05/27/16 17:31 Dose: 1 tab Carvedilol (Coreg) 6.25 mg PO BID [facility] Last Admin: 05/28/16 09:37 Dose: 6.25 mg Citalopram Hydrobromide (Celexa) 20 mg PO DAILY [facility] Last Admin: 05/28/16 09:42 Dose: 20 mg Dextrose (Dextrose 50%) 0 ml IV UD PRN PRN Reason: Hypoglycemia Diagnostic Test (Pha) (Accu-Chek) 1 each FS ACHS [facility] Last Admin: 05/28/16 08:24 Dose: 1 each Diltiazem HCl (Cardizem Cd) 240 mg PO DAILY [facility] Last Admin: 05/28/16 09:38 Dose: 240 mg Docusate Sodium (Colace) 100 mg PO BID PRN PRN Reason: Constipation Gabapentin (Neurontin) 200 mg PO BID [facility] Last Admin: 05/28/16 09:37 Dose: 200 mg Azithromycin 500 mg/ Dextrose 250 mls @ 250 mls/hr IV Q24H [facility] Stop: 05/28/16 18:59 Last Infusion: 05/27/16 10:58 Dose: Infused Ceftriaxone Sodium 1 gm/ (Dextrose) 50 mls @ 100 mls/hr IV Q24H [facility] Last Admin: 05/28/16 09:46 Dose: 100 mls/hr Insulin Human Lispro (Humalog) 0 unit SQ ACHS [facility] PRN Reason: Protocol Last Admin: 05/28/16 08:24 Dose: Not Given Insulin Lispro Protam/Lispro Human (Humalog 75/25) 8 unit SQ ACB [facility] Last Admin: 05/27/16 09:13 Dose: 8 unit Insulin Lispro Protam/Lispro Human (Humalog 75/25) 5 unit SQ ACS [facility] Last Admin: 05/27/16 17:25 Dose: Not Given Ipratropium [place] (Atrovent) 2.5 ml NEB Q6HP PRN PRN Reason: Shortness Of Breath Or Wheezing Levothyroxine Sodium (Synthroid) 50 mcg PO QAMAC [facility] Last Admin: 05/28/16 09:37 Dose: 50 mcg Lorazepam (Ativan) 0.5 mg IV Q4-6HP PRN PRN Reason: ANXIETY/SEDATION Last Admin: 05/27/16 16:25 Dose: 0.5 mg Magnesium Hydroxide (Milk Of Magnesia) 30 ml PO DAILYP PRN PRN Reason: Constipation Mirtazapine (Remeron) 15 mg PO DAILY [facility] Last Admin: 05/28/16 09:38 Dose: 15 mg Morphine Sulfate (Morphine) 15 mg PO BID [facility] Last Admin: 05/28/16 09:42 Dose: 15 mg Ondansetron HCl (Zofran) 4 mg IV Q4HP PRN PRN Reason: Nausea And Vomiting Thymol/Chlorophyllin [Chlorophyll 3 Mg Tablet 1 dose PO BID [facility] Last Admin: 05/28/16 09:27 Dose: Not Given Ropinirole HCl (Requip) 0.5 mg PO BID [facility] Last Admin: 05/28/16 09:37 Dose: 0.5 mg Spironolactone (Aldactone) 12.5 mg PO Q2D [facility] Last Admin: 05/28/16 09:38 Dose: 12.5 mg Vitamin D (Vitamin D3) 4,000 unit PO DAILY [facility] Last Admin: 05/28/16 09:37 Dose: 4,000 unit Warfarin Sodium (Coumadin) 3 mg PO DAILY@1400 [facility] Last Admin: 05/27/16 14:34 Dose: 3 mg Medical - PN: A/P - Time Spent With Patient Total time spent is greater than 50% in coordination of care (as documented) at patient's floor/unit and/or counseling patient: (1) LLL pneumonia Status: Acute Current Visit: Yes (2) DM type 2 (diabetes mellitus, type 2) Status: Acute Current Visit: Yes (3) Parkinson disease Status: Acute Assessment and plan: #1. Pulmonary. -This patient presents with signs and symptoms of acute respiratory failure due to left lower lobe pneumonia, associated with hypoxia and leukocytosis. The patient has been admitted to telemetry, for aggressive treatment with IV antibiotics, nebulized bronchodilators, oxygen. Incentive spirometry and when necessary suctioning has also been ordered. -the patientseemed to have an event last night where he aspirated, as he developed rather acute respiratory distress and a mild dip in his O2 saturations. He improved after and Atrovent nebulizer. Chest x-ray is suggestive of bilateral pneumonia now. There is certainly concern for aspiration. There may be some component of congestive heart failure as well, so his IV fluids were discontinued. -continue with IV antibiotics, bronchodilators, pulmonary toilet. Clinically, his overall appearance is improved today. #2. CODE STATUS: Patient has a DNR CODE STATUS, but his POA, his niece, would like to pursue aggressive treatment for pneumonia ,outside of ventilation and CPR. #3. DVT prophylaxis:continue Coumadin. Adjust dosage to keep INR between 2 and 3. in therapeutic range today. #4. Cardiac. History of atrial fibrillation and ischemic cardiomyopathy. Continue current medications. -Heart rate is a bit elevated , possibly from bronchodilators. Continue to follow. -there is suggestion of mild pulmonary vascular congestion on chest x-ray today.he is about 2 L ahead on fluids since admission, but also has very poor by mouth intake. - I will give him a one-time dose of IV Lasix today. #5. Neurologic. History of Parkinson's disease. He is more alert today. We will continue with his usual Parkinson's regimen as tolerated. #6. Left hip pain, uncertain etiology. -this seems improved today. When he is more able we will try to get him up with physical therapy. #7. Platelets are a bit low today. This will be monitored daily.there are no current signs of bleeding. latelets are just a bit higher today. #8. Fluids and nutrition. the patient appears to be under nourished. Request dietary consult. -he also appears to possibly be aspirating, and speech therapy evaluation is pending. #9. Anemia slightly worse today, after hydration. Continue to monitor. Laura today's visit is taken approximately 25 minutes, to review test results, interview and examine the patient, review plan of care with staff, and write orders. Current Visit: Yes (4) Atrial fibrillation Status: Acute Current Visit: Yes (5) Left hip pain Status: Acute Current Visit: Yes Medical - PN: Qual - VTE Deep Vein Thrombosis/Pulmonary Embolism Present on Admission: No
[2016-05-28] MEDS: AZITHROMYCIN 500 MG in DEXTROSE 5% IN WATER 250 ML IV SCH (10:44)
[2016-05-28] MEDS ORDERED: FUROSEMIDE 20 MG/2 ML VIAL IV ONE (11:01)
[2016-05-28] MEDS: INSULIN, 75/25 NPL/LISPRO 1 UNIT/0.01 ML UNIT SQ SCH ×2 (12:48→17:48)
[2016-05-28] MEDS: WARFARIN 3 MG TABLET PO SCH (14:00)
[2016-05-29] MEDS: ALBUTEROL SULFATE 2.5 MG/3 ML NEBULIZER NEB SCH ×4 (01:38→19:05)
[2016-05-29] MEDS: CARBIDOPA/LEVODOPA 25/250 TABLET PO SCH ×6 (04:58→17:07)
[2016-05-29 06:54] LABS: Basophils # (Auto) 0 K/mcL (0.0-0.3); Basophils % (Auto) 0.1 % (0.0-2.0); Eosinophils # (Auto) 0 K/mcL (0.0-0.7); Eosinophils % (Auto) 0.3 % (0.0-7.0); Granulocytes % (Auto) 74.9 % (38.0-78.0); Lymphocytes # (Auto) 1.1 K/mcL (1.5-4.8); Lymphocytes % (Auto) 18.3 % (15.5-49.0); Mean Cell Volume 99.1 fL (80.0-100.0); Mean Corpuscular HGB Conc 32.5 g/dL (31.0-36.0); Mean Corpuscular Hemoglobin 32.2 pg (26.0-34.0); Monocytes # (Auto) 0.4 K/mcL (0.1-0.9); Monocytes % (Auto) 6.4 % (1.0-9.0); Platelet Count 125 K/mcL (140-440); Red Cell Distribution Width 14.1 % (11.5-14.5)
[2016-05-29] MEDS: LEVOTHYROXINE 50 MCG TABLET PO SCH (07:24)
[2016-05-29] MEDS: INSULIN LISPRO 1 UNIT/0.01 ML UNIT SQ SCH ×4 (07:24→22:44)
[2016-05-29 07:57] LABS: ALT/SGPT < 5 U/l (0-40); Albumin 3.4 gm/dL (3.2-5.2); Albumin/Globulin Ratio 1.4 (1.0-2.3); Alkaline Phosphatase 115 U/L (39-117); Blood Urea Nitrogen 24 mg/dl (8-23)
[2016-05-29] MEDS: INSULIN, 75/25 NPL/LISPRO 1 UNIT/0.01 ML UNIT SQ SCH ×2 (08:43→17:06)
[2016-05-29] MEDS: CARVEDILOL 6.25 MG TABLET PO SCH ×2 (09:01→22:40)
[2016-05-29] MEDS: DILTIAZEM 240 MG CAP.XL.24H PO SCH (09:01)
[2016-05-29] MEDS: CITALOPRAM 20 MG TABLET PO SCH (09:01)
[2016-05-29] MEDS: MIRTAZAPINE 15 MG TABLET PO SCH (09:02)
[2016-05-29] MEDS: CALCIUM W/VIT D3 500 MG TABLET PO SCH (09:03)
[2016-05-29] MEDS: rOPINIRole 0.25 MG TABLET PO SCH ×2 (09:03→22:40)
[2016-05-29] MEDS: ASPIRIN 81 MG TAB.CHEW PO SCH (09:03)
[2016-05-29] MEDS: BACLOFEN 10 MG TABLET PO SCH ×3 (09:03→22:40)
[2016-05-29] MEDS: VITAMIN D3 1,000 UNIT TABLET PO SCH (09:04)
[2016-05-29] MEDS: GABAPENTIN 100 MG CAPSULE PO SCH ×2 (09:05→22:40)
[2016-05-29] MEDS: morphine 15 MG TABLET PO SCH ×2 (09:05→22:40)
[2016-05-29] MEDS: cefTRIAXone 1 GM in DEXTROSE 5% IN WATER 50 ML IV SCH (09:06)
[2016-05-29] MEDS: [UNRECOGNIZED DRUG - OTHER] PO SCH ×2 (09:07→22:41)
[2016-05-29] MEDS: AMANTADINE HCL 100 MG CAPSULE PO SCH (09:10)
[2016-05-29] MEDS: 0.9 % SODIUM CHLORIDE 10 ML SYRINGE IV SCH ×4 (09:50→22:41)
[2016-05-29] MEDS: CARBIDOPA/LEVODOPA 10/100 TABLET PO SCH ×2 (10:56→13:34)
--- NOTE | 2016-05-29 11:00 | Internal Med Progress Note ---
Medical - PN: Subj Patient information: Note initiated : 05/29/16 at 11:00 am Service Date, if different from initiated Date: [] Patient: August Nath 85 y/o M admitted on 05/26/16 for Shortness of Breath, Chest Pain/Pneumonia. Chief Complaint: [] Interval history: May 26, 2016:History of present illness: Mr. Nath is a 85 year old male as Parkinson's disease and diabetes, and resides at a [place] [facility]. He reports he has not felt well for several days, and his niece was called todayby the staff to say that he had a fever and hypoxia and shortness of breath. He was transported to the emergency room for further evaluation. There he was found to have a left lower lobe pneumonia, and O2 saturations in the 80s, as well as leukocytosis and elevated lactic acid. the patient was somewhat obtunded on arrival, but several hours after ER treatment is starting to feel better. He notes that he has been feeling a little short of breath for the past week or so, and does have been having some chest discomfort as well. He mentions he cannot eat, but has difficulty articulating if that is because he is not hungry. His niece notes that his dentures tend to fall out. The patient says he has been feeling a little dizzy, and believes he has had a cough for a week or 2, which is mostly nonproductive. He has been feeling short of breath. He says he has both diarrhea and constipation, but that that is chronic. He also has chronic urinary frequency. He otherwise denies chills, headaches, ear pain or sore throat. He denies abdominal pain, nausea or vomiting. May 27, 2016: Today, the patient says he is feeling a little better. He is not having as much left hip pain. He is still having a loose wet cough, and moderate shortness of breath, but says overall he feels a little better. otherwise, he denies subjective fever or chills and anynew chest pain over his chronic chest pain. He denies significant abdominal pain, nausea or vomiting. Nurses noted he is still incontinent of both stool and urine, which they think is his baseline, although my understanding is that it may not be. Speech is still very soft and difficult to understand, and muscles are still somewhat rigid due to his Parkinson's. May 28, 2016 : Today, the patient says he thinks he is feeling better than yesterday. He feels he is working less hard to breathe. He does state today that he usually has no trouble chewing and swallowing food, but sometimes drinking liquids will make him cough to the point of gagging. Otherwise, he denies significant paincurrently, palpitations. He continues to have a moist cough which does not produce much phlegm. He did receive Atrovent nebulizers last night, that helped improve the upper airway gurgling noises he was making. He denies abdominal pain, nausea or vomiting or diarrhea. He continues to have intermittent incontinence of urine and stool. May 29, 2016: today, the patient says he is still feeling quite short of breath. He tends to desaturate with any minimal movement, but then his O2 sats , back up. Nursing staff says he is telling them he is feeling better today, although he told me he thought he felt a bit worse. He was seen by speechtherapy yesterday, and they recommended a level III dysphagia diet with thin liquids. Staff are continuing to every him for swallowing and forarticulating his speech more carefully so that we can understand him.Otherwise, he seems to deny fever or chills chest pain, abdominal pain, nausea or vomiting, diarrhea or constipation or dysuria. - Constitutional Vitals: Vital Signs Temp Pulse Resp BP Pulse Ox 98.5 F 97 H 18 137/75 93 05/29/16 07:08 05/29/16 07:34 05/29/16 07:34 05/29/16 07:08 05/29/16 07:08 Period Temp Pulse Resp BP Sys/Woodward Pulse Ox Last 24 Hr 97.6 F-98.6 F 85-97 11-32 102-143/61-91 93-98 Intake and Output 05/28/16 05/29/16 05/29/16 21:59 05:59 13:59 Intake Total 1420 / 1420 170 / 170 Output Total 2 / 2 2 / 2 2 / 2 Balance 1418 / 1418 168 / 168 Weight 172 lb 9.6 oz Intake & Output: Intake & Output 05/28/16 05/29/16 05/29/16 21:59 05:59 13:59 Intake Total 1420 / 1420 20 / 20 170 / 170 Output Total 2 / 2 2 / 2 2 / 2 Balance 1418 / 1418 18 / 18 168 / 168 Weight 172 lb 9.6 oz Intake: IV 1000 / 1000 50 / 50 Dextrose 5% in Water 50 50 / 50 ml @ 100 mls/hr IV Q24H ION with Rocephin 1 gm Rx #:[id number] Oral 420 / 420 20 / 20 120 / 120 Output: # of times incontinent of 2 / 2 2 / 2 2 / 2 urine Other: Meal Dinner Breakfast Percent of Meal Consumed 25% 100% Feeding Ability Total Assistance Total Assistance # Bowel Movements 0 Exam: on exam, he is awake and alert, and is just finishing up a bed bath. O2 saturations have dropped into the upper 80s. He does appear a bit dyspneic. Neck otherwise shows no obvious JVD. Cardiac examsince irregularly irregular rhythm. Lungs: He has soft wheezes heard fairly diffusely posteriorly this morning. There are scattered crackles as well. He does have some sensory muscle use currently. Abdomen: Is soft and nontender with no obvious masses. Bowel sounds are active. Extremities: Show no significant edema. Neurologic:The patient is awake and alert, calm and cooperative. He does have a resting tremor, but otherwise exam is grossly nonfocal. Medical - PN: Obj Da - Labs CBC & Chem 7: 05/29/16 04:32 05/29/16 04:32 Labs: Abnormal Lab Results 05/29/16 05/29/16 05/29/16 04:32 04:32 04:32 RBC 3.60 L Hgb 11.6 L Hct 35.7 L Plt Count 125 L Gran % Lymph % (Auto) Lymph # 1.1 L PT 31.3 H INR 2.9 H Carbon Dioxide 31 H BUN 24 H Glucose Calcium Total Protein 5.8 L Albumin 05/28/16 05/28/16 05/28/16 07:42 04:26 04:26 RBC 3.40 L Hgb 10.8 L Hct 33.8 L Plt Count 129 L Gran % Lymph % (Auto) 14.8 L Lymph # 1.0 L PT 27.1 H INR 2.4 H Carbon Dioxide BUN 25 H Glucose Calcium Total Protein 5.8 L Albumin 2.9 L 05/27/16 05/27/16 05/27/16 09:05 04:07 04:07 RBC 3.35 L Hgb 10.8 L Hct 32.5 L Plt Count 106 L Gran % 82.6 H Lymph % (Auto) 8.9 L Lymph # 0.6 L PT 26.1 H INR 2.3 H Carbon Dioxide BUN 27 H Glucose 120 H Calcium 8.5 L Total Protein 5.8 L Albumin 2.9 L May 28; Chest x-ray: Increasing diffuse pulmonary parenchymal infiltrates suggesting either pneumonia or pulmonary edema. Bilateral pleural effusions. May 27:chest x-ray: Dense left lower lobe consolidation consistent with pneumonia. Mild right basilar infiltrate and small effusion consistent with pneumonia. Possible mild pulmonary congestion. May 26: Troponin is normal. MRSA screen is negative. Chest x-ray shows left lower lobe consolidation consistent with pneumonia and left pleural effusion. There may be mild pulmonary vascular congestion. X-ray of the left hip shows moderate degenerative disease . There is a large amount of stool in the colon.next EKG shows an irregularly irregular rhythm, with evidence of previous inferior FL There is slow R-wave progression consistent with possible previousanterior FL. This is similar in appearance to an x-ray from August 2015. Meds: Medications Acetaminophen (Tylenol) 650 mg PO Q6HP PRN PRN Reason: PAIN/FEVER > 101 Last Admin: 05/28/16 09:36 Dose: 650 mg Albuterol Sulfate (Ventolin) 2.5 mg NEB Q6HRT [facility] Last Admin: 05/29/16 07:30 Dose: 2.5 mg Albuterol Sulfate (Ventolin) 2.5 mg NEB Q2HP PRN PRN Reason: Shortness Of Breath Amantadine HCl (Amantadine) 100 mg PO DAILY [facility] Last Admin: 05/29/16 09:10 Dose: 100 mg Aspirin (Aspirin) 81 mg PO DAILY [facility] Last Admin: 05/29/16 09:03 Dose: 81 mg Baclofen (Lioresal) 10 mg PO TID [facility] Last Admin: 05/29/16 09:03 Dose: 10 mg Calcium/Vitamin D (Calcium W/Vit D3) 500 mg PO DAILY [facility] Last Admin: 05/29/16 09:03 Dose: 500 mg Carbidopa/Levodopa (Sinemet 10/100) 1 tab PO DAILY@1330 [facility] Last Admin: 05/28/16 12:48 Dose: 1 tab Carbidopa/Levodopa (Sinemet 25/250) 1 tab PO DAILY@0530,0830,1130 [facility] Last Admin: 05/29/16 08:44 Dose: 1 tab Carbidopa/Levodopa (Sinemet 10/100) 2 tab PO DAILY@1000 [facility] Last Admin: 05/29/16 10:56 Dose: 2 tab Carbidopa/Levodopa (Sinemet 25/250) 1 tab PO DAILY@1430,1730 [facility] Last Admin: 05/28/16 17:43 Dose: 1 tab Carvedilol (Coreg) 6.25 mg PO BID [facility] Last Admin: 05/29/16 09:01 Dose: 6.25 mg Citalopram Hydrobromide (Celexa) 20 mg PO DAILY [facility] Last Admin: 05/29/16 09:01 Dose: 20 mg Dextrose (Dextrose 50%) 0 ml IV UD PRN PRN Reason: Hypoglycemia Diagnostic Test (Pha) (Accu-Chek) 1 each FS ACHS [facility] Last Admin: 05/29/16 07:23 Dose: 1 each Diltiazem HCl (Cardizem Cd) 240 mg PO DAILY [facility] Last Admin: 05/29/16 09:01 Dose: 240 mg Docusate Sodium (Colace) 100 mg PO BID PRN PRN Reason: Constipation Gabapentin (Neurontin) 200 mg PO BID [facility] Last Admin: 05/29/16 09:05 Dose: 200 mg Ceftriaxone Sodium 1 gm/ (Dextrose) 50 mls @ 100 mls/hr IV Q24H [facility] Last Infusion: 05/29/16 09:50 Dose: Infused Insulin Human Lispro (Humalog) 0 unit SQ ACHS [facility] PRN Reason: Protocol Last Admin: 05/29/16 07:24 Dose: Not Given Insulin Lispro Protam/Lispro Human (Humalog 75/25) 8 unit SQ ACB [facility] Last Admin: 05/29/16 08:43 Dose: Not Given Insulin Lispro Protam/Lispro Human (Humalog 75/25) 5 unit SQ ACS [facility] Last Admin: 05/28/16 17:48 Dose: Not Given Ipratropium [place] (Atrovent) 2.5 ml NEB Q6HP PRN PRN Reason: Shortness Of Breath Or Wheezing Levothyroxine Sodium (Synthroid) 50 mcg PO QAMAC [facility] Last Admin: 05/29/16 07:24 Dose: 50 mcg Lorazepam (Ativan) 0.5 mg IV Q4-6HP PRN PRN Reason: ANXIETY/SEDATION Last Admin: 05/27/16 16:25 Dose: 0.5 mg Magnesium Hydroxide (Milk Of Magnesia) 30 ml PO DAILYP PRN PRN Reason: Constipation Mirtazapine (Remeron) 15 mg PO DAILY [facility] Last Admin: 05/29/16 09:02 Dose: 15 mg Morphine Sulfate (Morphine) 15 mg PO BID [facility] Last Admin: 05/29/16 09:05 Dose: 15 mg Ondansetron HCl (Zofran) 4 mg IV Q4HP PRN PRN Reason: Nausea And Vomiting Thymol/Chlorophyllin [Chlorophyll 3 Mg Tablet 1 dose PO BID [facility] Last Admin: 05/29/16 09:07 Dose: Not Given Ropinirole HCl (Requip) 0.5 mg PO BID [facility] Last Admin: 05/29/16 09:03 Dose: 0.5 mg Spironolactone (Aldactone) 12.5 mg PO Q2D [facility] Last Admin: 05/28/16 09:38 Dose: 12.5 mg Vitamin D (Vitamin D3) 4,000 unit PO DAILY [facility] Last Admin: 05/29/16 09:04 Dose: 4,000 unit Warfarin Sodium (Coumadin) 3 mg PO DAILY@1400 [facility] Last Admin: 05/28/16 14:00 Dose: 3 mg Medical - PN: A/P - Time Spent With Patient Total time spent is greater than 50% in coordination of care (as documented) at patient's floor/unit and/or counseling patient: (1) LLL pneumonia Status: Acute Current Visit: Yes (2) DM type 2 (diabetes mellitus, type 2) Status: Acute Current Visit: Yes (3) Parkinson disease Status: Acute Current Visit: Yes (4) Atrial fibrillation Status: Acute Current Visit: Yes (5) Left hip pain Status: Acute Current Visit: Yes - Narrative A/P Narrative: #1. Pulmonary. -This patient presents with signs and symptoms of acute respiratory failure due to left lower lobe pneumonia, associated with hypoxia and leukocytosis. The patient has been admitted to telemetry, for aggressive treatment with IV antibiotics, nebulized bronchodilators, oxygen. Incentive spirometry and when necessary suctioning has also been ordered. -the patient continues to hold his own,but still has frequent oxygen desaturations with minimal movement. There may be some degree of pulmonary vascular congestion, so I will try giving him IV Lasix again today. White blood cell count has improved markedly on current antibiotics, so we will continue with those. -He no longer appears to be aspirating, as he is working on the cues provided by speech therapy. -continue with IV antibiotics, bronchodilators, pulmonary toilet. Clinically, his overall appearance is improved today. #2. CODE STATUS: Patient has a DNR CODE STATUS, but his POA, his niece, would like to pursue aggressive treatment for pneumonia ,outside of ventilation and CPR. #3. DVT prophylaxis:continue Coumadin. Adjust dosage to keep INR between 2 and 3. in therapeutic range today. #4. Cardiac. History of atrial fibrillation and ischemic cardiomyopathy. Continue current medications. -Heart rate is a bit elevated , possibly from bronchodilators. Continue to follow. -there is suggestion of mild pulmonary vascular congestion on chest x-ray today.he is about 4 L ahead on fluids since admission, but also has very poor by mouth intake. I have ordered another dose of IV Lasix for this morning. #5. Neurologic. History of Parkinson's disease. He is more alert today. We will continue with his usual Parkinson's regimen as tolerated. #6. Left hip pain, uncertain etiology. -this seems improved today. When he is more able we will try to get him up with physical therapy. #7. Platelets are a bit low today. This will be monitored daily.there are no current signs of bleeding. platelets are just a bit higher today. #8. Fluids and nutrition. the patient appears to be under nourished. Request dietary consult. #9. Anemia slightly worse today, after hydration. Continue to monitor. so far today, this visit is taken proximally 35 minutes, to review the patient' s chest results, and creatinine exam him, discussed hisstatus with nursing staff , and write orders. Medical - PN: Qual - VTE Deep Vein Thrombosis/Pulmonary Embolism Present on Admission: No
[2016-05-29] MEDS ORDERED: FUROSEMIDE 40 MG/4 ML VIAL IV ONE (11:02)
[2016-05-30] MEDS: ALBUTEROL SULFATE 2.5 MG/3 ML NEBULIZER NEB SCH ×3 (00:35→13:10)
[2016-05-30] MEDS: CARBIDOPA/LEVODOPA 25/250 TABLET PO SCH ×3 (05:20→11:47)
[2016-05-30] MEDS: 0.9 % SODIUM CHLORIDE 10 ML SYRINGE IV SCH ×3 (05:20→09:00)
[2016-05-30 07:15] LABS: Basophils # (Auto) 0 K/mcL (0.0-0.3); Basophils % (Auto) 0.6 % (0.0-2.0); Eosinophils # (Auto) 0 K/mcL (0.0-0.7); Eosinophils % (Auto) 0.2 % (0.0-7.0); Granulocytes % (Auto) 65.8 % (38.0-78.0); Lymphocytes # (Auto) 0.8 K/mcL (1.5-4.8); Lymphocytes % (Auto) 21.2 % (15.5-49.0); Mean Cell Volume 98.5 fL (80.0-100.0); Mean Corpuscular HGB Conc 32.2 g/dL (31.0-36.0); Mean Corpuscular Hemoglobin 31.7 pg (26.0-34.0); Monocytes # (Auto) 0.4 K/mcL (0.1-0.9); Monocytes % (Auto) 12.2 % (1.0-9.0); Platelet Count 118 K/mcL (140-440); RBC 3.41 M/mcL (4.50-5.90); Red Cell Distribution Width 14.1 % (11.5-14.5)
[2016-05-30] MEDS: LEVOTHYROXINE 50 MCG TABLET PO SCH (07:16)
[2016-05-30] MEDS: INSULIN LISPRO 1 UNIT/0.01 ML UNIT SQ SCH ×2 (07:16→11:46)
[2016-05-30] MEDS: INSULIN, 75/25 NPL/LISPRO 1 UNIT/0.01 ML UNIT SQ SCH (08:19)
[2016-05-30] MEDS: cefTRIAXone 1 GM in DEXTROSE 5% IN WATER 50 ML IV SCH (08:22)
[2016-05-30] MEDS: SPIRONOLACTONE 25 MG TABLET PO SCH (09:23)
[2016-05-30] MEDS: DILTIAZEM 240 MG CAP.XL.24H PO SCH (09:23)
[2016-05-30] MEDS: CITALOPRAM 20 MG TABLET PO SCH (09:24)
[2016-05-30] MEDS: BACLOFEN 10 MG TABLET PO SCH (09:24)
[2016-05-30] MEDS: MIRTAZAPINE 15 MG TABLET PO SCH (09:24)
[2016-05-30] MEDS: morphine 15 MG TABLET PO SCH (09:25)
[2016-05-30] MEDS: ASPIRIN 81 MG TAB.CHEW PO SCH (09:25)
[2016-05-30] MEDS: rOPINIRole 0.25 MG TABLET PO SCH (09:27)
[2016-05-30] MEDS: CALCIUM W/VIT D3 500 MG TABLET PO SCH (09:27)
[2016-05-30] MEDS: VITAMIN D3 1,000 UNIT TABLET PO SCH (09:28)
[2016-05-30] MEDS: GABAPENTIN 100 MG CAPSULE PO SCH (09:28)
[2016-05-30] MEDS: AMANTADINE HCL 100 MG CAPSULE PO SCH (09:29)
[2016-05-30] MEDS: [UNRECOGNIZED DRUG - OTHER] PO SCH (09:30)
[2016-05-30] MEDS: CARVEDILOL 6.25 MG TABLET PO SCH (09:30)
[2016-05-30] MEDS: CARBIDOPA/LEVODOPA 10/100 TABLET PO SCH ×2 (10:31→13:14)
--- NOTE | 2016-05-30 11:32 | Discharge Summary ---
Medical - DS: Prov Patient information: Note initiated : 05/30/16 at 11:32 am Service Date, if different from initiated Date: [] Patient: August Nath 85 y/o M admitted on 05/26/16 for Shortness of Breath, Chest Pain/Pneumonia. Chief Complaint: [] Date of admission: 05/26/16 16:45 Discharge date: 05/30/16 Primary care physician: [Dr. Gerard Smart, [id number]] Admitting clinician: Lizy Zaman Attending physician on discharge: Lizy Zaman Medical - DS: Meds - Discharge Medications Active and Home Medications: Home Medications Acetaminophen [Tylenol] 325 mg PO Q4HP PRN 05/26/16 [History Confirmed 05/26/16 Last Taken Unknown] Amantadine HCl [Amantadine] 100 mg PO DAILY 05/26/16 [History Confirmed Last Taken Unknown] Aspirin [Aron Chewable Aspirin] 81 mg PO DAILY 05/26/16 [History Confirmed Last Taken Unknown] Baclofen [Lioresal] 10 mg PO TID 05/26/16 [History Confirmed 05/26/16 Last Taken Unknown] Calcium/Mag Oxide/Vitamin D3 [Coral Calcium 1,000 mg Cap] 1 each PO DAILY [History Confirmed 05/26/16 Last Taken Unknown] Carvedilol [Coreg] 6.25 mg PO BID 05/26/16 [History Confirmed 05/26/16 Last Taken Unknown] Cholecalciferol (Vitamin D3) [Vitamin D3] 4,000 unit PO DAILY 05/26/16 [History Confirmed 05/26/16 Last Taken Unknown] Citalopram [Celexa] 20 mg PO DAILY 05/26/16 [History Confirmed 05/26/16 Last Taken Unknown] Diltiazem HCl [Cartia Xt] 240 mg PO DAILY 05/26/16 [History Confirmed 05/26/16 Last Taken Unknown] Gabapentin [Neurontin] 200 mg PO BID 05/26/16 [History Confirmed 05/26/16 Last Taken Unknown] Insulin NPH Hum/Reg Insulin Hm [Humulin 70/30 Kwikpen] 5 unit SQ HS 05/26/16 [ History Confirmed 05/27/16 Last Taken Unknown] Insulin NPH Hum/Reg Insulin Hm [Humulin 70/30 Kwikpen] 8 unit SQ DAILY 05/26/16 [History Confirmed 05/26/16 Last Taken Unknown] Levothyroxine Sodium [Tirosint] 50 mcg PO DAILY 05/26/16 [History Confirmed Last Taken Unknown] Mirtazapine [Remeron] 15 mg PO DAILY 05/26/16 [History Confirmed 05/26/16 Last Taken Unknown] Simethicone [Mylicon] 1 each PO TID 05/26/16 [History Confirmed 05/26/16 Last Taken Unknown] Spironolactone [Aldactone] 12.5 mg PO Q2D 05/26/16 [History Confirmed 05/26/16 Last Taken Unknown] Thymol/Chlorophyllin [Chlorophyll 3 mg Tablet] 1 each PO BID 05/26/16 [History Confirmed 05/26/16 Last Taken Unknown] Warfarin [Coumadin] 3 mg PO DAILY 05/26/16 [History Confirmed 05/26/16 Last Taken Unknown] morphine SULFATE [Morphine Sulfate] 15 mg PO BID 05/26/16 [History Confirmed Last Taken Unknown] morphine SULFATE [Morphine Sulfate] 15 mg PO DAILY 05/26/16 [History Confirmed 05/26/16 Last Taken Unknown] rOPINIRole HCL [Requip] 0.5 mg PO BID 05/26/16 [History Confirmed 05/26/16 Last Taken Unknown] Active Medications Acetaminophen (Tylenol) 650 mg PO Q6HP PRN PRN Reason: PAIN/FEVER > 101 Last Admin: 05/28/16 09:36 Dose: 650 mg Albuterol Sulfate (Ventolin) 2.5 mg NEB Q6HRT [facility] Last Admin: 05/30/16 08:01 Dose: 2.5 mg Albuterol Sulfate (Ventolin) 2.5 mg NEB Q2HP PRN PRN Reason: Shortness Of Breath Amantadine HCl (Amantadine) 100 mg PO DAILY [facility] Last Admin: 05/30/16 09:29 Dose: 100 mg Aspirin (Aspirin) 81 mg PO DAILY [facility] Last Admin: 05/30/16 09:25 Dose: 81 mg Baclofen (Lioresal) 10 mg PO TID [facility] Last Admin: 05/30/16 09:24 Dose: 10 mg Calcium/Vitamin D (Calcium W/Vit D3) 500 mg PO DAILY [facility] Last Admin: 05/30/16 09:27 Dose: 500 mg Carbidopa/Levodopa (Sinemet 10/100) 1 tab PO DAILY@1330 [facility] Last Admin: 05/29/16 13:34 Dose: 1 tab Carbidopa/Levodopa (Sinemet 25/250) 1 tab PO DAILY@0530,0830,1130 [facility] Last Admin: 05/30/16 08:29 Dose: 1 tab Carbidopa/Levodopa (Sinemet 10/100) 2 tab PO DAILY@1000 [facility] Last Admin: 05/30/16 10:31 Dose: 2 tab Carbidopa/Levodopa (Sinemet 25/250) 1 tab PO DAILY@1430,1730 [facility] Last Admin: 05/29/16 17:07 Dose: 1 tab Carvedilol (Coreg) 6.25 mg PO BID [facility] Last Admin: 05/30/16 09:30 Dose: 6.25 mg Citalopram Hydrobromide (Celexa) 20 mg PO DAILY [facility] Last Admin: 05/30/16 09:24 Dose: 20 mg Dextrose (Dextrose 50%) 0 ml IV UD PRN PRN Reason: Hypoglycemia Diagnostic Test (Pha) (Accu-Chek) 1 each FS ACHS [facility] Last Admin: 05/30/16 07:16 Dose: 1 each Diltiazem HCl (Cardizem Cd) 240 mg PO DAILY [facility] Last Admin: 05/30/16 09:23 Dose: 240 mg Docusate Sodium (Colace) 100 mg PO BID PRN PRN Reason: Constipation Gabapentin (Neurontin) 200 mg PO BID [facility] Last Admin: 05/30/16 09:28 Dose: 200 mg Ceftriaxone Sodium 1 gm/ (Dextrose) 50 mls @ 100 mls/hr IV Q24H [facility] Last Infusion: 05/30/16 09:00 Dose: Infused Insulin Human Lispro (Humalog) 0 unit SQ ACHS [facility] PRN Reason: Protocol Last Admin: 05/30/16 07:16 Dose: Not Given Insulin Lispro Protam/Lispro Human (Humalog 75/25) 8 unit SQ ACB [facility] Last Admin: 05/30/16 08:19 Dose: 8 unit Insulin Lispro Protam/Lispro Human (Humalog 75/25) 5 unit SQ ACS [facility] Last Admin: 05/29/16 17:06 Dose: 5 unit Ipratropium [place] (Atrovent) 2.5 ml NEB Q6HP PRN PRN Reason: Shortness Of Breath Or Wheezing Levothyroxine Sodium (Synthroid) 50 mcg PO QAMAC [facility] Last Admin: 05/30/16 07:16 Dose: 50 mcg Lorazepam (Ativan) 0.5 mg IV Q4-6HP PRN PRN Reason: ANXIETY/SEDATION Last Admin: 05/27/16 16:25 Dose: 0.5 mg Magnesium Hydroxide (Milk Of Magnesia) 30 ml PO DAILYP PRN PRN Reason: Constipation Mirtazapine (Remeron) 15 mg PO DAILY [facility] Last Admin: 05/30/16 09:24 Dose: 15 mg Morphine Sulfate (Morphine) 15 mg PO BID [facility] Last Admin: 05/30/16 09:25 Dose: 15 mg Ondansetron HCl (Zofran) 4 mg IV Q4HP PRN PRN Reason: Nausea And Vomiting Thymol/Chlorophyllin [Chlorophyll 3 Mg Tablet 1 dose PO BID [facility] Last Admin: 05/30/16 09:30 Dose: Not Given Ropinirole HCl (Requip) 0.5 mg PO BID [facility] Last Admin: 05/30/16 09:27 Dose: 0.5 mg Sodium Chloride (Saline Flush) 10 ml IV Q8 [facility] Last Admin: 05/30/16 08:22 Dose: 10 ml Spironolactone (Aldactone) 12.5 mg PO Q2D [facility] Last Admin: 05/30/16 09:23 Dose: 12.5 mg Vitamin D (Vitamin D3) 4,000 unit PO DAILY [facility] Last Admin: 05/30/16 09:28 Dose: 4,000 unit Medical - DS: Hosp Hospital course: Mr. Nath is a 85 year old male May 26, 2016:History of present illness: Mr. Nath is a 85 year old male as Parkinson's disease and diabetes, and resides at a [place] group home. He reports he has not felt well for several days, and his niece was called todayby the staff to say that he had a fever and hypoxia and shortness of breath. He was transported to the emergency room for further evaluation. There he was found to have a left lower lobe pneumonia, and O2 saturations in the 80s, as well as leukocytosis and elevated lactic acid. the patient was somewhat obtunded on arrival, but several hours after ER treatment is starting to feel better. He notes that he has been feeling a little short of breath for the past week or so, and does have been having some chest discomfort as well. He mentions he cannot eat, but has difficulty articulating if that is because he is not hungry. His niece notes that his dentures tend to fall out. The patient says he has been feeling a little dizzy, and believes he has had a cough for a week or 2, which is mostly nonproductive. He has been feeling short of breath. He says he has both diarrhea and constipation, but that that is chronic. He also has chronic urinary frequency. He otherwise denies chills, headaches, ear pain or sore throat. He denies abdominal pain, nausea or vomiting. May 27, 2016: Today, the patient says he is feeling a little better. He is not having as much left hip pain. He is still having a loose wet cough, and moderate shortness of breath, but says overall he feels a little better. otherwise, he denies subjective fever or chills and anynew chest pain over his chronic chest pain. He denies significant abdominal pain, nausea or vomiting. Nurses noted he is still incontinent of both stool and urine, which they think is his baseline, although my understanding is that it may not be. Speech is still very soft and difficult to understand, and muscles are still somewhat rigid due to his Parkinson's. May 28, 2016 : Today, the patient says he thinks he is feeling better than yesterday. He feels he is working less hard to breathe. He does state today that he usually has no trouble chewing and swallowing food, but sometimes drinking liquids will make him cough to the point of gagging. Otherwise, he denies significant paincurrently, palpitations. He continues to have a moist cough which does not produce much phlegm. He did receive Atrovent nebulizers last night, that helped improve the upper airway gurgling noises he was making. He denies abdominal pain, nausea or vomiting or diarrhea. He continues to have intermittent incontinence of urine and stool. May 29, 2016: today, the patient says he is still feeling quite short of breath. He tends to desaturate with any minimal movement, but then his O2 sats , back up. Nursing staff says he is telling them he is feeling better today, although he told me he thought he felt a bit worse. He was seen by speechtherapy yesterday, and they recommended a level III dysphagia diet with thin liquids. Staff are continuing to every him for swallowing and forarticulating his speech more carefully so that we can understand him.Otherwise, he seems to deny fever or chills chest pain, abdominal pain, nausea or vomiting, diarrhea or constipation or dysuria. May 30, 2016: Today, the patient is looking brighter. He says he is having less shortness of breath, although he does still becomes dyspneic with talking for very long. He has not yet been able to get out of bed due to weakness. he has been maintaining O2 saturations pretty well. The nurses note that if they sit with him the entire time that he is eating, and que him, that he seems to have a safe swallow. He does have a tendency to want to go his fluids, so needs frequent reminders not to do that, so as to avoid aspiration. he appears to have turned a corner, and should continue to do well with frequent nebulizer treatments, pulmonary toilet, and IV antibiotics. We think at this point, that he is stable enough to discharge to either a group home setting or a swing bed status. -we did give him IV Lasix yesterday, just in case heart failure was one of the things causing his respiratory issues, and he did lose more than 4 pounds in fluid. n exam, he is awake and alert. His speech still tends to be difficult to understand, but he seems to deny any increased pain over his usual chronic pain. He denies chest pain or palpitations. He does admit to mild shortness of breath, and still has a cough, but it is less congested. He denies abdominal pain, nausea or vomiting or diarrhea, or dysuria. He is chronically incontinent of urine. neck shows no obvious JVD or lymphadenopathy. Cardiac exam shows an irregularly irregular rhythm. Lungs: He has soft wheezes heard fairly diffusely posteriorly this morning. There are scattered crackles as well. Abdomen: Is soft and nontender with no obvious masses. Bowel sounds are active. Extremities: Show no significant edema. Neurologic:The patient is awake and alert, calm and cooperative. He does have a resting tremor, but otherwise exam is grossly nonfocal. assessment and plan: #1. Pulmonary. -This patient presents with signs and symptoms of acute respiratory failure due to left lower lobe pneumonia, associated with hypoxia and leukocytosis. The patient has been admitted to telemetry, for aggressive treatment with IV antibiotics, nebulized bronchodilators, oxygen. Incentive spirometry and when necessary suctioning has also been ordered. -The patient's pulmonary status appears more stable today. I think he can be moved to a swing bed status, and continue with current treatment.e is still at risk for aspiration, and still needs frequent cueing to help avoid that. -continue with IV antibiotics, bronchodilators, pulmonary toilet. Clinically, his overall appearance is improved today. #2. CODE STATUS: Patient has a DNR CODE STATUS, but his POA, his niece, would like to pursue aggressive treatment for pneumonia ,outside of ventilation and CPR. #3. DVT prophylaxis:continue Coumadin. Adjust dosage to keep INR between 2 and 3. iNR is a little bit high today, so we will hold Coumadin this evening. #4. Cardiac. History of atrial fibrillation and ischemic cardiomyopathy. Continue current medications. -he did diurese quite a bit after Lasix, and breathing does seem to be better. #5. Neurologic. History of Parkinson's disease. He is more alert today. We will continue with his usual Parkinson's regimen as tolerated. #6. Left hip pain, uncertain etiology. -this seems improved today. When he is more able we will try to get him up with physical therapy. #7. Platelets are a bit low today. This will be monitored daily.there are no current signs of bleeding. #8. Fluids and nutrition. the patient appears to be under nourished. Request dietary consult. #9. Anemia slightly worse today, after hydration. Continue to monitor. Discharge diagnosis: left lower lobe pneumonia with hypoxic respiratory failure. Aspiration. Pa - Time Spent with Patient Total time spent providing and/or coordinating discharge services: Greater than 30 minutes Medical - DS: Exam - Constitutional Vitals: Vital Signs Temp Pulse Pulse Resp BP Pulse Ox 05/30/16 08:04 90 20 94 05/30/16 07:30 98.4 F 24 151/105 96 05/30/16 07:00 95 05/30/16 05:53 90 05/30/16 04:12 97.4 F L 76 20 137/79 100 05/30/16 02:24 84 05/30/16 01:39 78 05/30/16 00:00 97.5 F L 75 22 139/83 100 05/29/16 20:00 97.4 F L 82 20 126/82 96 05/29/16 19:35 82 20 98 05/29/16 18:40 81 18 05/29/16 16:00 98.1 F 86 18 118/68 91 05/29/16 13:55 79 18 05/29/16 12:00 98.1 F 88 22 119/67 93 Intake and Output 05/29/16 05/30/16 05/30/16 21:59 05:59 13:59 Intake Total 240 / 240 250 / 250 Output Total 3 / 3 2 / 2 Balance 240 / 240 -3 / -3 248 / 248 Intake: IV 50 / 50 Dextrose 5% in Water 50 50 / 50 ml @ 100 mls/hr IV Q24H ION with Rocephin 1 gm Rx #:[id number] Oral 240 / 240 200 / 200 Output: # of times incontinent of 3 / 3 2 / 2 urine Other: Meal Dinner Breakfast Percent of Meal Consumed 100% 100% Feeding Ability Total Assistance Total Assistance Weight 165 lb Medical - DS: Data Labs on day of discharge: Labs from last 24 hours 05/30/16 05/30/16 05/29/16 04:20 04:20 11:05 WBC 3.6 L RBC 3.41 L Hgb 10.8 L Hct 33.6 L MCV 98.5 MCH 31.7 MCHC 32.2 RDW 14.1 Plt Count 118 L MPV 8.8 Gran % 65.8 Lymph % (Auto) 21.2 Gregg % (Auto) 12.2 H Eos % (Auto) 0.2 Baso % (Auto) 0.6 Gran # 2.4 Lymph # 0.8 L Gregg # 0.4 Eos # 0 Baso # 0 PT 34.1 H INR 3.2 H NT-Pro-B Natriuret Pep 5527.0 H May 28; Chest x-ray: Increasing diffuse pulmonary parenchymal infiltrates suggesting either pneumonia or pulmonary edema. Bilateral pleural effusions. May 27:chest x-ray: Dense left lower lobe consolidation consistent with pneumonia. Mild right basilar infiltrate and small effusion consistent with pneumonia. Possible mild pulmonary congestion. May 26: Troponin is normal. MRSA screen is negative. Chest x-ray shows left lower lobe consolidation consistent with pneumonia and left pleural effusion. There may be mild pulmonary vascular congestion. X-ray of the left hip shows moderate degenerative disease . There is a large amount of stool in the colon.next EKG shows an irregularly irregular rhythm, with evidence of previous inferior [place] There is slow R-wave progression consistent with possible previousanterior [place]. This is similar in appearance to an x-ray from August 2015. Medical - DS: A/P - Patient/Caregiver Discharge Instructions Activity: as per physical therapy Diet: Cardiac - Problem Maintenance (1) LLL pneumonia Status: Acute Qualifiers: Pneumonia type: aspiration pneumonia (2) DM type 2 (diabetes mellitus, type 2) Status: Chronic Qualifiers: Diabetes mellitus complication detail: with unspecified neuropathy (3) Parkinson disease Status: Chronic (4) Atrial fibrillation Status: Chronic Qualifiers: Atrial fibrillation type: chronic Qualified Code(s): I48.2 - Chronic atrial fibrillation (5) Left hip pain Status: Chronic - Follow up Plan Follow up with: Gerard Smart MD [Primary Care Provider] - Disposition: [facility] Swing Bed Prognosis: Fair Rehab Potential: Fair I certify that the patient requires SNF services: Yes Overall status at discharge: patient is progressing back to baseline Medical - DS: Qual - VTE Deep Vein Thrombosis/Pulmonary Embolism Present on Admission: No
== END 2016-05-30 13:33 | disposition other institution (70) | DRG 177 ==
LOC: ED 10:33 → ICU 16:45
PROVIDERS: ADMIT Internal Medicine; ATTEND Internal Medicine

== ENCOUNTER 2016-05-30 13:34 | Inpatient (IN) ==
[2016-05-30] MEDS ORDERED: IPRATROPIUM 2.5 ML AMPUL.NEB NEB PRN ×2 (15:04→17:11)
[2016-05-30] MEDS ORDERED: ALBUTEROL SULFATE 2.5 MG/3 ML NEBULIZER NEB PRN ×2 (15:04→17:11)
[2016-05-30] MEDS ORDERED: MAGNESIUM HYDROXIDE 30 ML ORAL.SUSP PO PRN (17:11)
[2016-05-30] MEDS ORDERED: DOCUSATE SODIUM 100 MG CAPSULE PO PRN (17:11)
[2016-05-30] MEDS ORDERED: ONDANSETRON 4 MG/2 ML VIAL IV PRN (17:11)
[2016-05-30] MEDS ORDERED: LORazepam 2 MG/ML VIAL IV PRN (17:11)
[2016-05-30] MEDS ORDERED: ACETAMINOPHEN 325 MG TABLET PO PRN (17:11)
[2016-05-30] MEDS ORDERED: cefTRIAXone 1 GM VIAL IV SCH (17:15)
[2016-05-30] MEDS ORDERED: DEXTROSE 50% 50 ML VIAL IV PRN (17:19)
[2016-05-30] MEDS ORDERED: ALBUTEROL SULFATE 2.5 MG/3 ML NEBULIZER NEB SCH (19:00)
[2016-05-30] MEDS: CARBIDOPA/LEVODOPA 25/250 TABLET PO SCH (19:11)
[2016-05-30] MEDS: ALBUTEROL SULFATE 2.5 MG/3 ML NEBULIZER NEB SCH (19:50)
[2016-05-30] MEDS: BACLOFEN 10 MG TABLET PO SCH (21:45)
[2016-05-30] MEDS: morphine 15 MG TABLET PO SCH (21:45)
[2016-05-30] MEDS: CARVEDILOL 6.25 MG TABLET PO SCH (21:45)
[2016-05-30] MEDS: 0.9 % SODIUM CHLORIDE 10 ML SYRINGE IV SCH (21:49)
[2016-05-30] MEDS: rOPINIRole 0.25 MG TABLET PO SCH (21:49)
[2016-05-30] MEDS: SIMETHICONE 80 MG TAB.CHEW PO SCH (21:49)
[2016-05-30] MEDS: GABAPENTIN 100 MG CAPSULE PO SCH (21:49)
[2016-05-30] MEDS: INSULIN LISPRO 1 UNIT/0.01 ML UNIT SQ SCH (21:50)
[2016-05-30] MEDS: NITROGLYCERIN 0.2 MG/HR PATCH TOPICAL SCH (22:06)
[2016-05-30] MEDS: [UNRECOGNIZED DRUG - OTHER] PO SCH (22:21)
[2016-05-31] MEDS: ALBUTEROL SULFATE 2.5 MG/3 ML NEBULIZER NEB SCH ×4 (01:59→19:00)
[2016-05-31] MEDS: CARBIDOPA/LEVODOPA 25/250 TABLET PO SCH ×5 (06:00→17:16)
[2016-05-31] MEDS: 0.9 % SODIUM CHLORIDE 10 ML SYRINGE IV SCH ×3 (06:15→21:55)
[2016-05-31] MEDS: LEVOTHYROXINE 50 MCG TABLET PO SCH (08:01)
[2016-05-31] MEDS: INSULIN LISPRO 1 UNIT/0.01 ML UNIT SQ SCH ×4 (08:02→21:12)
[2016-05-31] MEDS: INSULIN, 75/25 NPL/LISPRO 1 UNIT/0.01 ML UNIT SQ SCH ×2 (08:02→17:16)
[2016-05-31] MEDS ORDERED: MAG OXIDE PO SCH (09:00)
[2016-05-31] MEDS ORDERED: [UNRECOGNIZED DRUG - OTHER] PO SCH (09:00)
[2016-05-31] MEDS ORDERED: CALCIUM PO SCH (09:00)
[2016-05-31] MEDS ORDERED: VITAMIN D3 PO SCH (09:00)
[2016-05-31] MEDS ORDERED: MORPHINE SULFATE 15 MG PO SCH (09:00)
[2016-05-31] MEDS ORDERED: cefTRIAXone 1 GM in DEXTROSE 5% IN WATER 50 ML IV SCH (09:00)
[2016-05-31] MEDS: WARFARIN 3 MG TABLET PO SCH (09:13)
[2016-05-31] MEDS: SIMETHICONE 80 MG TAB.CHEW PO SCH ×3 (09:14→20:56)
[2016-05-31] MEDS: DILTIAZEM 240 MG CAP.XL.24H PO SCH (09:14)
[2016-05-31] MEDS: MIRTAZAPINE 15 MG TABLET PO SCH (09:14)
[2016-05-31] MEDS: VITAMIN D3 1,000 UNIT TABLET PO SCH (09:14)
[2016-05-31] MEDS: GABAPENTIN 100 MG CAPSULE PO SCH ×2 (09:14→20:55)
[2016-05-31] MEDS: CARVEDILOL 6.25 MG TABLET PO SCH ×2 (09:14→20:55)
[2016-05-31] MEDS: ASPIRIN 81 MG TAB.CHEW PO SCH (09:15)
[2016-05-31] MEDS: morphine 15 MG TABLET PO SCH ×2 (09:15→20:56)
[2016-05-31] MEDS: rOPINIRole 0.25 MG TABLET PO SCH ×2 (09:15→20:56)
[2016-05-31] MEDS: CITALOPRAM 20 MG TABLET PO SCH (09:15)
[2016-05-31] MEDS: BACLOFEN 10 MG TABLET PO SCH ×3 (09:15→20:56)
[2016-05-31] MEDS: CALCIUM W/VIT D3 500 MG TABLET PO SCH (09:15)
[2016-05-31] MEDS: [UNRECOGNIZED DRUG - OTHER] PO SCH ×2 (09:16→20:57)
[2016-05-31] MEDS: AMANTADINE HCL 100 MG CAPSULE PO SCH (09:17)
[2016-05-31] MEDS: NITROGLYCERIN 0.2 MG/HR PATCH TOPICAL SCH (09:52)
[2016-05-31] MEDS: cefTRIAXone 1 GM in DEXTROSE 5% IN WATER 50 ML IV SCH (09:52)
--- NOTE | 2016-05-31 10:05 | Internal Med History&Physical ---
Medical - H&P: HPI Patient information: Note initiated : 05/31/16 at 10:05 am Service Date, if different from initiated Date: [] Patient: August Nath 85 y/o M admitted on 05/30/16 for Pneumonia. Chief Complaint: [] History of present illness: Mr. Nath is a 85 year old male who was admitted to [facility] on May 26, 2016, withleft lower lobe pneumonia and significant hypoxia. He also had depressed mental status, leukocytosis, and elevated lactic acid. He was treated aggressively with IV fluids, IV antibiotics, bronchodilators, oxygen therapy, and pulmonary toilet. He has gradually improved, to the point where he felt was felt stable enough for discharge yesterday. His family was nervous about the degree of observation and monitoring he would receive back at the [facility], so they requested that he be transferred here to a swing bed status. he is quite debilitated due to his Parkinson's disease and significant kyphosis. He needs a lot of cueing when he is eating, to avoid choking and aspiration. -at some point he was a little more hypoxic than we expected, there was concern that he might have some pulmonary vascular congestion, so he was given 1 or 2 doses of Lasix, and did have a vigorous response to that. His oxygenation did seem to improve after that. Today, he is awake and alert,he says he is feeling well. He denies significant shortness of breath. He otherwise denies subjective fever or chills, headaches or dizziness, new eye or ear symptoms, sore throat. He continues to have intermittent cough, which is mostly nonproductive.he feels that his shortness of breath is improving daily. He denies chest pain or palpitations,nausea or vomiting, abdominal pain or heartburn, diarrhea or constipation. He does have fairly chronic bladder incontinence. He offers no other complaints today. . Past medical history: Per [facility] records: Type 2 diabetes parkinson's disease Atrial fibrillation Hyperlipidemia Depression and anxiety GERD Hypothyroidism Hypertension Non-thrombocytopenic purpura Bursitis Constipation Vitamin D deficiency Dry eye syndrome Generalized osteoarthritis medications from the previous [facility] medication list: Tylenol 325 mg every 4 hours when necessary Amantadine 50 mg per 5 mL. 10 mL by mouth daily Artificial tears 1 drop in both eyes 3 times a day Aspirin 81 mg daily at bedtime Baclofen 10 mg 3 times a day Coreg 6.25 mg by mouth twice a day Polyethylene glycol 17 g by mouth daily Protonix 40 mg daily pycnogenol one daily Requip 0.5 mg twice a day Senna 2 tabs daily at bedtime Simethicone 80 mg 4 times a day Sinemet 53125 tab once a day, 2 tabs once a day Sinemet 30471 1 tab 5 times a day Spironolactone 12.5 mgevery other day Celexa 20 mgdaily chloral fill tablet 1 twice a day Calcium one tablet daily Coumadin 3 mg daily at bedtime Diltiazem ER 240 mg daily Docusate sodium 250 mg every morning Dulcolax suppository when necessary Fleets enema when necessary gabapentin 200 mg 3 times a day Humulin 70/38 units every morning, 5 units every afternoon levothyroxine 50 g daily at bedtime Milk of magnesia when necessary Mirtazapine 15 mg daily at bedtime Morphine 15 mg daily when necessary chest pain Morphine 15 mg twice a day Nitroglycerin patch 0.1 mg per hour daily at bedtimeS sublingual nitroglycerin when necessary Triamcinolone cream 0.1% apply to arms and neck every shift when necessary Vitamin D 4000 units daily Current medications are as noted below under home medications. Allergies:Mirapex family history; Mother had liver cancer. Mother and sister and brother had diabetes. Social history: Patient quit smoking 20 years ago. He has not had alcohol for many years. He has not used drugs. He resides at the [facility]. Medical - H&P: Meds Home Medications Medication Instructions Recorded Confirmed Type Acetaminophen [Tylenol] 325 mg PO Q4HP PRN 05/26/16 05/30/16 History Amantadine HCl [Amantadine] 100 mg PO DAILY 05/26/16 05/30/16 History Aspirin [Aron Chewable Aspirin] 81 mg PO DAILY 05/26/16 05/30/16 History Baclofen [Lioresal] 10 mg PO TID 05/26/16 05/30/16 History Calcium/Mag Oxide/Vitamin D3 1 each PO DAILY 05/26/16 05/30/16 History [Coral Calcium 1,000 mg Cap] Carvedilol [Coreg] 6.25 mg PO BID 05/26/16 05/30/16 History Citalopram [Celexa] 20 mg PO DAILY 05/26/16 05/30/16 History Diltiazem HCl [Cartia Xt] 240 mg PO DAILY 05/26/16 05/30/16 History Gabapentin [Neurontin] 200 mg PO BID 05/26/16 05/30/16 History Levothyroxine Sodium [Tirosint] 50 mcg PO DAILY 05/26/16 05/30/16 History Mirtazapine [Remeron] 15 mg PO DAILY 05/26/16 05/30/16 History Simethicone [Mylicon] 1 each PO TID 05/26/16 05/30/16 History Spironolactone [Aldactone] 12.5 mg PO Q2D 05/26/16 05/30/16 History Thymol/Chlorophyllin [Chlorophyll 1 each PO BID 05/26/16 05/30/16 History 3 mg Tablet] Warfarin [Coumadin] 3 mg PO DAILY 05/26/16 05/30/16 History morphine SULFATE [Morphine Sulfate] 15 mg PO DAILY 05/26/16 05/30/16 History rOPINIRole HCL [Requip] 0.5 mg PO BID 05/26/16 05/30/16 History Allergies Allergy/AdvReac Type Severity Reaction Status Date / Time From MIRAPEX AdvReac Mild INCREASED Uncoded 10/05/14 14:09 CONFUSION Medical - H&P: Exam - Constitutional Vitals: Temp Pulse Resp BP Pulse Ox 97.7 F 73 16 120/67 93 05/31/16 08:00 05/31/16 08:00 05/31/16 08:16 05/31/16 08:00 05/31/16 08:16 Exam: On exam, he is awake and alert. His speech still tends to be difficult to understand, but he enies significant pain. He is sitting up in a chair, feeding himself lunch, and seems to be swallowing well.. head: Normocephalic, atraumatic. Eyes:PERRLA, EOMI, anicteric. Ears: TMs and canals are fairly clear. Pharynx: Patient is edentulous, but does have his dentures in today. Mucosa appears fairly normal. neck shows no obvious JVD or lymphadenopathy.here is no obvious thyromegaly or carotid bruits. he is quite severely kyphotic. Cardiac exam shows an irregularly irregular rhythm.no murmurs, rubs, gallops are noted. Lungs: He has scattered soft wheezes and crackles . there is no accessory muscle use. Abdomen: Is soft and nontender with no obvious masses. Bowel sounds are active. Extremities: Show no significant edema. Neurologic:The patient is awake and alert, calm and cooperative. He does have a resting tremor, but otherwise exam is grossly nonfocal. is speech is a little bit clearer today, and a little bit easier to understand than previously. I do not see significant motor rigidity today. Medical - H&P: Reslt - Labs Labs: labs from yesterday show white blood cell count of 3.6 thousand, hemoglobin 10.8 , hematocrit 33.6, platelets 118,000, with absolute lymphocyte count of it low at 800. Pro time from today is 26, with INR of 2.4 Chemistry panel from May 29; Shows sodium 141, potassium 4.7, chloride 99, bicarbonate 31, BUNs 24, creatinine 0.9 LFTs are within normal limits. albumin is 3.4, with globulin of 2.4, total protein is low at 5.8 Last BNP from May 29 was elevated at 5527 chest x-ray from May 28 showed increasing pulmonary parenchymal infiltrates secondary to pneumonia or pulmonary edema, as well as possible bilateral pleural effusions. prior labs from May 26: Troponin is normal. MRSA screen is negative. Chest x-ray shows left lower lobe consolidation consistent with pneumonia and left pleural effusion. There may be mild pulmonary vascular congestion. X-ray of the left hip shows moderate degenerative disease . There is a large amount of stool in the colon.next EKG shows an irregularly irregular rhythm, with evidence of previous inferior MO There is slow R-wave progression consistent with possible previousanterior MO. This is similar in appearance to an x-ray from August 2015. Medical - H&P: A/P (1) LLL pneumonia Current visit: No Status: Acute (2) Atrial fibrillation Current visit: No Status: Chronic (3) DM type 2 (diabetes mellitus, type 2) Current visit: No Status: Chronic (4) Left hip pain Current visit: No Status: Chronic (5) Parkinson disease Current visit: No Status: Chronic - Narrative A/P Narrative: #1. Pulmonary. -Patient is status post admission for left lower lobe pneumonia, with subsequent right-sided pneumonia as well. He had quite a slow recovery initially , but eventually did improve, and is now breathing well Cough and dyspnea are markedly improved. -He also exhibited some signs and symptoms of aspiration, and had swallowing difficulties mostly due to his Parkinson's disease and significant kyphosis. He does very well when cued appropriately. -i think he should stay on IV antibiotics for another 2-5 days, and at some point will need a follow-up chest x-ray to show improvement. -Continue bronchodilators, oxygen as needed, pulmonary toilet, incentive spirometry. #2. CODE STATUS: Patient has a DNR CODE STATUS, but his POA, his niece, would like to pursue aggressive treatment for pneumonia ,outside of ventilation and CPR. #3. DVT prophylaxis:continue Coumadin. Adjust dosage to keep INR between 2 and 3. #4. Cardiac. History of atrial fibrillation and ischemic cardiomyopathy. Continue current medications. -he did diurese quite a bit after Lasix, and breathing does seem to be better. #5. Neurologic. History of Parkinson's disease. He is more alert today. We will continue with his usual Parkinson's regimen as tolerated. #6. Left hip pain, uncertain etiology. -this seems improved today. -continue physical therapy, occupational therapy, speech therapy. #7. Platelets are a bit low today. This will be monitored daily.there are no current signs of bleeding. #8. Fluids and nutrition. the patient appears to be under nourished. Request dietary consult. #9. Anemia -stable. approximately 35 minutes was spent today, reviewing all of the patient's test results from admission, interviewing and examining him,and writing orders. Medical - H&P: Qual - VTE Deep Vein Thrombosis/Pulmonary Embolism Present on Admission: No
[2016-05-31] MEDS: CARBIDOPA/LEVODOPA 10/100 TABLET PO SCH ×2 (10:11→13:36)
[2016-05-31] MEDS: NITROGLYCERIN 0.1 MG/HR PATCH TOPICAL SCH (20:56)
[2016-06-01] MEDS: ALBUTEROL SULFATE 2.5 MG/3 ML NEBULIZER NEB SCH ×4 (01:57→19:20)
[2016-06-01] MEDS: CARBIDOPA/LEVODOPA 25/250 TABLET PO SCH ×5 (05:14→17:31)
[2016-06-01] MEDS: 0.9 % SODIUM CHLORIDE 10 ML SYRINGE IV SCH ×2 (05:28→13:42)
[2016-06-01 06:20] LABS: Basophils # (Auto) 0 K/mcL (0.0-0.3); Basophils % (Auto) 0.4 % (0.0-2.0); Eosinophils # (Auto) 0.1 K/mcL (0.0-0.7); Eosinophils % (Auto) 1.5 % (0.0-7.0); Granulocytes % (Auto) 62.4 % (38.0-78.0); Lymphocytes # (Auto) 1.2 K/mcL (1.5-4.8); Lymphocytes % (Auto) 26.4 % (15.5-49.0); Mean Cell Volume 98.3 fL (80.0-100.0); Mean Corpuscular HGB Conc 32.3 g/dL (31.0-36.0); Mean Corpuscular Hemoglobin 31.7 pg (26.0-34.0); Monocytes # (Auto) 0.4 K/mcL (0.1-0.9); Monocytes % (Auto) 9.3 % (1.0-9.0); Platelet Count 135 K/mcL (140-440); RBC 3.61 M/mcL (4.50-5.90); Red Cell Distribution Width 14.5 % (11.5-14.5)
[2016-06-01] MEDS: INSULIN LISPRO 1 UNIT/0.01 ML UNIT SQ SCH ×4 (07:55→21:44)
[2016-06-01 08:04] LABS: ALT/SGPT < 5 U/l (0-40); Albumin 3.3 gm/dL (3.2-5.2); Albumin/Globulin Ratio 1.1 (1.0-2.3); Alkaline Phosphatase 107 U/L (39-117); Blood Urea Nitrogen 21 mg/dl (8-23)
[2016-06-01] MEDS: LEVOTHYROXINE 50 MCG TABLET PO SCH (08:07)
[2016-06-01] MEDS: INSULIN, 75/25 NPL/LISPRO 1 UNIT/0.01 ML UNIT SQ SCH ×2 (08:07→19:41)
[2016-06-01] MEDS: NITROGLYCERIN 0.1 MG/HR PATCH TOPICAL SCH ×2 (09:24→20:36)
[2016-06-01] MEDS: VITAMIN D3 1,000 UNIT TABLET PO SCH (09:24)
[2016-06-01] MEDS: morphine 15 MG TABLET PO SCH ×2 (09:25→20:38)
[2016-06-01] MEDS: DILTIAZEM 240 MG CAP.XL.24H PO SCH (09:25)
[2016-06-01] MEDS: SIMETHICONE 80 MG TAB.CHEW PO SCH ×3 (09:26→20:38)
[2016-06-01] MEDS: SPIRONOLACTONE 25 MG TABLET PO SCH (09:26)
[2016-06-01] MEDS: ASPIRIN 81 MG TAB.CHEW PO SCH (09:26)
[2016-06-01] MEDS: CARVEDILOL 6.25 MG TABLET PO SCH ×2 (09:27→20:38)
[2016-06-01] MEDS: rOPINIRole 0.25 MG TABLET PO SCH ×2 (09:27→20:36)
[2016-06-01] MEDS: WARFARIN 3 MG TABLET PO SCH (09:28)
[2016-06-01] MEDS: GABAPENTIN 100 MG CAPSULE PO SCH ×2 (09:28→20:36)
[2016-06-01] MEDS: MIRTAZAPINE 15 MG TABLET PO SCH (09:28)
[2016-06-01] MEDS: CITALOPRAM 20 MG TABLET PO SCH (09:28)
[2016-06-01] MEDS: CALCIUM W/VIT D3 500 MG TABLET PO SCH (09:28)
[2016-06-01] MEDS: [UNRECOGNIZED DRUG - OTHER] PO SCH ×2 (09:37→21:43)
[2016-06-01] MEDS: AMANTADINE HCL 100 MG CAPSULE PO SCH (09:43)
[2016-06-01] MEDS: BACLOFEN 10 MG TABLET PO SCH ×3 (09:44→20:38)
[2016-06-01] MEDS: cefTRIAXone 1 GM in DEXTROSE 5% IN WATER 50 ML IV SCH (09:44)
[2016-06-01] MEDS: CARBIDOPA/LEVODOPA 10/100 TABLET PO SCH ×2 (10:10→13:26)
[2016-06-02] MEDS: 0.9 % SODIUM CHLORIDE 10 ML SYRINGE IV SCH ×4 (00:15→22:05)
[2016-06-02] MEDS: ALBUTEROL SULFATE 2.5 MG/3 ML NEBULIZER NEB SCH ×3 (01:54→13:28)
[2016-06-02] MEDS: CARBIDOPA/LEVODOPA 25/250 TABLET PO SCH ×5 (05:26→16:43)
[2016-06-02] MEDS: LEVOTHYROXINE 50 MCG TABLET PO SCH (06:40)
[2016-06-02] MEDS: INSULIN LISPRO 1 UNIT/0.01 ML UNIT SQ SCH ×4 (06:42→22:14)
[2016-06-02] MEDS: DILTIAZEM 240 MG CAP.XL.24H PO SCH (08:46)
[2016-06-02] MEDS: AMANTADINE HCL 100 MG CAPSULE PO SCH (08:46)
[2016-06-02] MEDS: CARVEDILOL 6.25 MG TABLET PO SCH ×2 (08:46→22:00)
[2016-06-02] MEDS: CALCIUM W/VIT D3 500 MG TABLET PO SCH (08:47)
[2016-06-02] MEDS: rOPINIRole 0.25 MG TABLET PO SCH ×2 (08:47→22:03)
[2016-06-02] MEDS: ASPIRIN 81 MG TAB.CHEW PO SCH (08:48)
[2016-06-02] MEDS: morphine 15 MG TABLET PO SCH ×2 (08:48→22:02)
[2016-06-02] MEDS: GABAPENTIN 100 MG CAPSULE PO SCH ×2 (08:49→22:01)
[2016-06-02] MEDS: SIMETHICONE 80 MG TAB.CHEW PO SCH ×3 (08:49→22:04)
[2016-06-02] MEDS: CITALOPRAM 20 MG TABLET PO SCH (08:49)
[2016-06-02] MEDS: WARFARIN 3 MG TABLET PO SCH (08:49)
[2016-06-02] MEDS: MIRTAZAPINE 15 MG TABLET PO SCH (08:49)
[2016-06-02] MEDS: NITROGLYCERIN 0.1 MG/HR PATCH TOPICAL SCH ×2 (08:50→22:05)
[2016-06-02] MEDS: VITAMIN D3 1,000 UNIT TABLET PO SCH (08:50)
[2016-06-02] MEDS: INSULIN, 75/25 NPL/LISPRO 1 UNIT/0.01 ML UNIT SQ SCH ×2 (08:58→16:43)
[2016-06-02] MEDS: cefTRIAXone 1 GM in DEXTROSE 5% IN WATER 50 ML IV SCH (09:18)
[2016-06-02] MEDS: BACLOFEN 10 MG TABLET PO SCH ×3 (09:20→21:59)
[2016-06-02] MEDS: [UNRECOGNIZED DRUG - OTHER] PO SCH ×2 (09:21→22:08)
[2016-06-02] MEDS: CARBIDOPA/LEVODOPA 10/100 TABLET PO SCH ×2 (09:21→13:06)
[2016-06-03] MEDS: ALBUTEROL SULFATE 2.5 MG/3 ML NEBULIZER NEB SCH ×2 (01:55→07:03)
[2016-06-03] MEDS: LEVOTHYROXINE 50 MCG TABLET PO SCH (06:58)
[2016-06-03] MEDS: CARBIDOPA/LEVODOPA 25/250 TABLET PO SCH ×3 (06:59→11:37)
[2016-06-03] MEDS: INSULIN, 75/25 NPL/LISPRO 1 UNIT/0.01 ML UNIT SQ SCH (08:13)
[2016-06-03] MEDS: INSULIN LISPRO 1 UNIT/0.01 ML UNIT SQ SCH ×2 (08:13→13:40)
[2016-06-03] MEDS: GABAPENTIN 100 MG CAPSULE PO SCH (08:46)
[2016-06-03] MEDS: VITAMIN D3 1,000 UNIT TABLET PO SCH (08:46)
[2016-06-03] MEDS: SIMETHICONE 80 MG TAB.CHEW PO SCH (08:46)
[2016-06-03] MEDS: DILTIAZEM 240 MG CAP.XL.24H PO SCH (08:46)
[2016-06-03] MEDS: rOPINIRole 0.25 MG TABLET PO SCH (08:47)
[2016-06-03] MEDS: SPIRONOLACTONE 25 MG TABLET PO SCH (08:47)
[2016-06-03] MEDS: CITALOPRAM 20 MG TABLET PO SCH (08:47)
[2016-06-03] MEDS: BACLOFEN 10 MG TABLET PO SCH (08:47)
[2016-06-03] MEDS: ASPIRIN 81 MG TAB.CHEW PO SCH (08:47)
[2016-06-03] MEDS: WARFARIN 3 MG TABLET PO SCH (08:47)
[2016-06-03] MEDS: morphine 15 MG TABLET PO SCH (08:48)
[2016-06-03] MEDS: CALCIUM W/VIT D3 500 MG TABLET PO SCH (08:48)
[2016-06-03] MEDS: CARVEDILOL 6.25 MG TABLET PO SCH (08:49)
[2016-06-03] MEDS: NITROGLYCERIN 0.1 MG/HR PATCH TOPICAL SCH (08:49)
[2016-06-03] MEDS: MIRTAZAPINE 15 MG TABLET PO SCH (08:49)
[2016-06-03] MEDS: cefTRIAXone 1 GM in DEXTROSE 5% IN WATER 50 ML IV SCH (08:50)
[2016-06-03] MEDS: AMANTADINE HCL 100 MG CAPSULE PO SCH (08:51)
[2016-06-03] MEDS: [UNRECOGNIZED DRUG - OTHER] PO SCH (08:51)
[2016-06-03] MEDS: CARBIDOPA/LEVODOPA 10/100 TABLET PO SCH ×2 (09:59→13:40)
[2016-06-03] MEDS: 0.9 % SODIUM CHLORIDE 10 ML SYRINGE IV SCH (09:59)
--- NOTE | 2016-06-03 10:36 | Discharge Summary ---
Medical - DS: Prov Patient information: Note initiated : 06/03/16 at 10:24 am Service Date, if different from initiated Date: [] Patient: August Nath 85 y/o M admitted on 05/30/16 for Pneumonia. Chief Complaint: [] Date of admission: 05/30/16 14:13 Discharge date: 06/03/16 Primary care physician: [f_Reg Prim Care Provider] Medical - DS: Meds - Discharge Medications Prescriptions: cefTRIAXone [Rocephin] 1 gm IV DAILY #7 vial Active and Home Medications: Home Medications cefTRIAXone [Rocephin] 1 gm IV DAILY #7 vial 06/03/16 [Rx Last Taken Unknown] Active Medications Acetaminophen (Tylenol) 650 mg PO Q6HP PRN PRN Reason: PAIN/FEVER > 101 Albuterol Sulfate (Ventolin) 2.5 mg NEB Q2HP PRN PRN Reason: Shortness Of Breath Albuterol Sulfate (Ventolin) 2.5 mg NEB Q6HRT [facility] Last Admin: 06/03/16 07:03 Dose: 2.5 mg Amantadine HCl (Amantadine) 100 mg PO DAILY [facility] Last Admin: 06/03/16 08:51 Dose: 100 mg Aspirin (Aspirin) 81 mg PO DAILY [facility] Last Admin: 06/03/16 08:47 Dose: 81 mg Baclofen (Lioresal) 10 mg PO TID [facility] Last Admin: 06/03/16 08:47 Dose: 10 mg Calcium/Vitamin D (Calcium W/Vit D3) 500 mg PO DAILY [facility] Last Admin: 06/03/16 08:48 Dose: 500 mg Carbidopa/Levodopa (Sinemet 10/100) 1 tab PO DAILY@1330 [facility] Last Admin: 06/02/16 13:06 Dose: 1 tab Carbidopa/Levodopa (Sinemet 10/100) 2 tab PO DAILY@1000 [facility] Last Admin: 06/03/16 09:59 Dose: 2 tab Carbidopa/Levodopa (Sinemet 25/250) 1 tab PO DAILY@0530,0830,1130 [facility] Last Admin: 06/03/16 08:45 Dose: 1 tab Carbidopa/Levodopa (Sinemet 25/250) 1 tab PO DAILY@1430,1730 [facility] Last Admin: 06/02/16 16:43 Dose: 1 tab Carvedilol (Coreg) 6.25 mg PO BID [facility] Last Admin: 06/03/16 08:49 Dose: 6.25 mg Citalopram Hydrobromide (Celexa) 20 mg PO DAILY [facility] Last Admin: 06/03/16 08:47 Dose: 20 mg Dextrose (Dextrose 50%) 0 ml IV UD PRN PRN Reason: Hypoglycemia Diagnostic Test (Pha) (Accu-Chek) 1 each FS ACHS [facility] Last Admin: 06/03/16 08:12 Dose: 1 each Diltiazem HCl (Cardizem Cd) 240 mg PO DAILY [facility] Last Admin: 06/03/16 08:46 Dose: 240 mg Docusate Sodium (Colace) 100 mg PO BID PRN PRN Reason: Constipation Gabapentin (Neurontin) 200 mg PO BID [facility] Last Admin: 06/03/16 08:46 Dose: 200 mg Ceftriaxone Sodium 1 gm/ (Dextrose) 50 mls @ 100 mls/hr IV DAILY [facility] Last Infusion: 06/03/16 09:37 Dose: Infused Insulin Human Lispro (Humalog) 0 unit SQ [facility] PRN Reason: Protocol Last Admin: 06/03/16 08:13 Dose: Not Given Insulin Lispro Protam/Lispro Human (Humalog 75/25) 5 unit SQ BIDAC [facility] Last Admin: 06/03/16 08:13 Dose: 5 unit Ipratropium Finley (Atrovent) 2.5 ml NEB Q6HRT PRN PRN Reason: Secretions Last Admin: 06/01/16 20:36 Dose: 2.5 ml Ipratropium Finley (Atrovent) 2.5 ml NEB Q6HP PRN PRN Reason: Shortness Of Breath Or Wheezing Last Admin: 05/31/16 21:03 Dose: 2.5 ml Levothyroxine Sodium (Synthroid) 50 mcg PO QAMAC [facility] Last Admin: 06/03/16 06:58 Dose: 50 mcg Lorazepam (Ativan) 0.5 mg IV Q4-6HP PRN PRN Reason: ANXIETY/SEDATION Magnesium Hydroxide (Milk Of Magnesia) 30 ml PO DAILYP PRN PRN Reason: Constipation Mirtazapine (Remeron) 15 mg PO DAILY [facility] Last Admin: 06/03/16 08:49 Dose: 15 mg Morphine Sulfate (Morphine) 15 mg PO BID [facility] Last Admin: 06/03/16 08:48 Dose: 15 mg Nitroglycerin (Nitro-Dur) 0.1 mg TOPICAL QDRHS [facility] Last Admin: 06/03/16 08:49 Dose: 0.1 mg Ondansetron HCl (Zofran) 4 mg IV Q4HP PRN PRN Reason: Nausea And Vomiting Thymol/Chlorophyllin [Chlorophyll 3 Mg] Tablet 1 dose PO BID [facility] Last Admin: 06/03/16 08:51 Dose: Not Given Ropinirole HCl (Requip) 0.5 mg PO BID [facility] Last Admin: 06/03/16 08:47 Dose: 0.5 mg Simethicone (Mylicon) 80 mg PO TID [facility] Last Admin: 06/03/16 08:46 Dose: 80 mg Sodium Chloride (Saline Flush) 10 ml IV Q8 [facility] Last Admin: 06/03/16 09:59 Dose: 10 ml Spironolactone (Aldactone) 12.5 mg PO Q2D [facility] Last Admin: 06/03/16 08:47 Dose: 12.5 mg Vitamin D (Vitamin D3) 4,000 unit PO DAILY [facility] Last Admin: 06/03/16 08:46 Dose: 4,000 unit Warfarin Sodium (Coumadin) 3 mg PO DAILY [facility] Last Admin: 06/03/16 08:47 Dose: 3 mg Medical - DS: Hosp Hospital course: DISCHARGE DIAGNOSIS * left lower lobe pneumonia- status post antibiotic with near-total clinical resolution. Continue antibiotics for additional 7 days. Continue aspiration precautions and aggressive post hospitalization physical therapy. Continue bronchodilators * history of A. fib/cardiomyopathy on home meds-Coreg/ spironolactone * Parkinson's disease on home meds including levodopa * Neuropathy on gabapentin * DM type II and prandial insulin/75-25 * Hypertension on spironolactone/Coreg * Anxiety disorder mirtazapine/lorazepam * Degenerative joint disease/left hip pain On physical therapy * mild anemia stable * anticoagulation for CVA prophylaxis on Coumadin-INR 2.2 BRIEF HOSPITAL COURSE Mr. Nath is a 85 year old male who was admitted to [facility] on May 26, 2016, withleft lower lobe pneumonia and significant hypoxia. He also had depressed mental status, leukocytosis, and elevated lactic acid. He was treated aggressively with IV fluids, IV antibiotics, bronchodilators, oxygen therapy, and pulmonary toilet. He has gradually improved, to the point where he felt was felt stable enough for discharge yesterday. His family was nervous about the degree of observation and monitoring he would receive back at the [place], so they requested that he be transferred here to a swing bed status. he is quite debilitated due to his Parkinson's disease and significant kyphosis. He needs a lot of cueing when he is eating, to avoid choking and aspiration. -at some point he was a little more hypoxic than we expected, there was concern that he might have some pulmonary vascular congestion, so he was given 1 or 2 doses of Lasix, and did have a vigorous response to that. His oxygenation did seem to improve after that. Today, he is awake and alert,he says he is feeling well. He denies significant shortness of breath. He otherwise denies subjective fever or chills, headaches or dizziness, new eye or ear symptoms, sore throat. He continues to have intermittent cough, which is mostly nonproductive.he feels that his shortness of breath is improving daily. He denies chest pain or palpitations,nausea or vomiting, abdominal pain or heartburn, diarrhea or constipation. He does have fairly chronic bladder incontinence. He offers no other complaints today. 06/03-Patient clinically improved. No active concerns. Discharge in stable state to SNF with continued antibiotics and post hospitalization rehabilitation. No evidence of aspiration. Family agreeable to discharge plan. Detailed discharge instructions as below Discharge diagnosis: left lower lobe pneumonia - Time Spent with Patient Total time spent providing and/or coordinating discharge services: Medical - DS: Exam - Constitutional Vitals: Vital Signs Temp Pulse Pulse Resp BP Pulse Ox 06/03/16 07:41 96.8 F L 99 H 20 136/81 94 06/03/16 07:05 93 H 18 92 06/02/16 19:50 98.1 F 74 24 134/75 98 06/02/16 18:58 63 24 93 06/02/16 13:42 93 06/02/16 13:29 60 24 Intake and Output 06/02/16 06/03/16 06/03/16 21:59 05:59 13:59 Intake Total 375 / 375 50 / 50 Output Total Balance 375 / 375 49 / 49 Intake: IV 50 / 50 Dextrose 5% in Water 50 50 / 50 ml @ 100 mls/hr IV DAILY ION with Rocephin 1 gm Rx #:[id number] Oral 375 / 375 Output: # of times incontinent of urine Other: # Bowel Movements 1 Weight 163 lb Medical - DS: A/P - Patient/Caregiver Discharge Instructions Activity: as per physical therapy, increase activity as tolerated Diet: Regular Diet Additional Instructions: Follow-up PCP in 5 days IV antibiotics for 7 days Coumadin as per orthopedics for post hip DVT prophylaxis I recommend SNF physician to check CBC BMP UA as a posthospital follow-up and Chest x-ray in 1 week. Continue aggressive bowel regimen to prevent constipation Continue fall precautions in light of Parkinson's Continue aggressive PT OT at SNF All meals on chair sitting upright at 90 degrees to prevent aspiration Return to ER if worsening fever chills shortness of breath, diarrhea, bleeding Review risk and side effect profile of medications including antibiotics. Side effect may include mild to severe reaction including rash, diarrhea, cdiff and even which can be prevented by close follow-up with PCP Continue diet and activity as advised Discussed importance of medication adherence Please review medication list with patient prior to discharge Please schedule follow-up with PCP/Providers prior to discharge and provide printouts Portions of this chart may have been created with [employer] voice recognition software. Occasional wrong-word or ?sound-like? substitutions may have occurred due to the inherent limitations of voice recognition software. Please read the chart carefully and recognize, using context, where the substitutions have occurred. CC- PCP Prescriptions: cefTRIAXone [Rocephin] 1 gm IV DAILY #7 vial - Follow up Plan Follow up with: Gerard Smart MD [Primary Care Provider] - (Dr Smart will see patient at the [facility]) Disposition: Xfer SNF Prognosis: Undetermined Rehab Potential: Fair I certify that the patient requires SNF services: Yes Overall status at discharge: patient is progressing back to baseline Medical - DS: Qual - VTE Deep Vein Thrombosis/Pulmonary Embolism Present on Admission: No
== END 2016-06-03 13:20 | DRG 177 ==
LOC: ICU 14:13 → MEDSUR 16:10
PROVIDERS: ADMIT Internal Medicine; ATTEND Internal Medicine

== ENCOUNTER 2016-06-29 15:17 | Inpatient (IN) ==
[2016-06-29] MEDS ORDERED: 0.9 % SODIUM CHLORIDE 1,000 ML IV ONE (15:32)
--- NOTE | 2016-06-29 15:48 | Emergency Department Note ---
Fall HPI - General Chief Complaint: Fall Stated Complaint: Hip Pain Time Seen by Provider: 06/29/16 15:31 Source: EMS Mode of arrival: EMS - History of Present Illness HPI Narrative: This patient was at the [place] [facility] and apparently took an unwitnessed fall. Complaining of right hip pain. On arrival in the emergency room he went apneic. He is a DNR. He is unresponsive for maybe 5 minutes and then gradually came back and was awake. - Related Data Home Medications Medication Instructions Recorded Confirmed Acetaminophen [Tylenol] 325 mg PO Q4HP PRN 05/26/16 05/30/16 Amantadine HCl [Amantadine] 100 mg PO DAILY 05/26/16 05/30/16 Aspirin [Aron Chewable Aspirin] 81 mg PO DAILY 05/26/16 05/30/16 Baclofen [Lioresal] 10 mg PO TID 05/26/16 05/30/16 Calcium/Mag Oxide/Vitamin D3 1 each PO DAILY 05/26/16 05/30/16 [Coral Calcium 1,000 mg Cap] Carvedilol [Coreg] 6.25 mg PO BID 05/26/16 05/30/16 Citalopram [Celexa] 20 mg PO DAILY 05/26/16 05/30/16 Diltiazem HCl [Cartia Xt] 240 mg PO DAILY 05/26/16 05/30/16 Gabapentin [Neurontin] 200 mg PO BID 05/26/16 05/30/16 Levothyroxine Sodium [Tirosint] 50 mcg PO DAILY 05/26/16 05/30/16 Mirtazapine [Remeron] 15 mg PO DAILY 05/26/16 05/30/16 Simethicone [Mylicon] 1 each PO TID 05/26/16 05/30/16 Spironolactone [Aldactone] 12.5 mg PO Q2D 05/26/16 05/30/16 Thymol/Chlorophyllin [Chlorophyll 1 each PO BID 05/26/16 05/30/16 3 mg Tablet] Warfarin [Coumadin] 3 mg PO DAILY 05/26/16 05/30/16 morphine SULFATE [Morphine Sulfate] 15 mg PO DAILY 05/26/16 05/30/16 rOPINIRole HCL [Requip] 0.5 mg PO BID 05/26/16 05/30/16 Previous Rx's Medication Instructions Recorded 0.9 % Sodium Chloride [Saline 10 ml IV Q8 syringe 05/30/16 Flush] Accu-Chek 1 each FS ACHS strip 05/30/16 Acetaminophen [Tylenol] 650 mg PO Q6HP PRN #0 tablet 05/30/16 Albuterol Sulfate [Ventolin] 2.5 mg NEB Q2HP PRN #0 ampul.neb 05/30/16 Albuterol Sulfate [Ventolin] 2.5 mg NEB Q6HRT ampul.neb 05/30/16 Calcium W/Vit D3 500 mg PO DAILY tablet 05/30/16 Carbidopa/Levodopa 10/100 [Sinemet 1 tab PO DAILY@1330 tablet 05/30/16 10] Carbidopa/Levodopa 10/100 [Sinemet 2 tab PO DAILY@1000 tablet 05/30/16 10] Carbidopa/Levodopa 25/250 [Sinemet 1 tab PO DAILY@0530,0830,1130 05/30/16 25/250] tablet Carbidopa/Levodopa 25/250 [Sinemet 1 tab PO DAILY@1430,1730 tablet 05/30/16 25/250] Docusate Sodium [Colace] 100 mg PO BID PRN #0 capsule 05/30/16 Ipratropium [Atrovent] 2.5 ml NEB Q6HP PRN #0 ampul.neb 05/30/16 LORazepam [Ativan] 0.5 mg IV Q4-6HP PRN #0 vial 05/30/16 Magnesium Hydroxide [Milk of 30 ml PO DAILYP PRN #0 oral.susp 05/30/16 Magnesia] Ondansetron [Zofran] 4 mg IV Q4HP PRN #0 vial 05/30/16 Vitamin D3 4,000 unit PO DAILY tablet 05/30/16 cefTRIAXone [Rocephin] 1 gm IV Q24H vial 05/30/16 morphine 15 mg PO BID tablet 05/30/16 cefTRIAXone [Rocephin] 1 gm IV DAILY #7 vial 06/03/16 Allergies Allergy/AdvReac Type Severity Reaction Status Date / Time From MIRAPEX AdvReac Mild INCREASED Uncoded 10/05/14 14:09 CONFUSION Review of Systems All systems ED: reviewed and negative except as stated. Fall PMH - Past Medical History Medical history: Reports: atrial fibrillation, diabetes, other (parkinsons, recent pneumonia) Family history: Reports: unable to obtain - Social History Alcohol use: Reports: None Drug use: Reports: none Physical Exam - General Limitations: no limitations General appearance: alert - Head Head exam: atraumatic - Eye Eye exam: Present: normal appearance - ENT ENT exam: mucous membranes dry - Neck Neck exam: Present: normal inspection - Chest Chest inspection: Present: normal inspection - Respiratory Respiratory exam: Present: normal lung sounds bilaterally - Cardiovascular Cardiovascular exam: Present: regular rate, normal rhythm, normal heart sounds - Abdominal Exam Abdominal exam: Present: soft. Absent: distention, tenderness - Neurological Exam Neurological exam: Present: alert - Psychiatric Psychiatric exam: Present: normal affect - Skin Skin exam: Present: warm Course Vital Signs Pulse Rate 96 H 06/29/16 15:22 Respiratory Rate 13 06/29/16 15:22 Blood Pressure 147/88 06/29/16 15:22 Pulse Oximetry (%) 100 06/29/16 15:22 Pulse Rate 100 H 06/29/16 17:51 Respiratory Rate 22 06/29/16 17:51 Blood Pressure 136/83 06/29/16 17:51 Pulse Oximetry (%) 100 06/29/16 17:51 Fall - MDM Narrative Medical decision making narrative: Patient be admitted to the hospital by Dr. Westfall - Lab Data Lab results reviewed: Yes I reviewed the patient's lab results. Result diagrams: 06/29/16 15:44 06/29/16 15:43 Lab Results 06/29/16 06/29/16 06/29/16 Range/Units 15:43 15:43 15:43 WBC (4.5-11.0) K/mcL RBC (4.50-5.90) M/mcL Hgb (13.5-16.5) g/dL Hct (41.0-55.0) % MCV (80.0-100.0) fL MCH (26.0-34.0) pg MCHC (31.0-36.0) g/dL RDW (11.5-14.5) % Plt Count (140-440) K/mcL MPV (7.4-10.4) fL Gran % (38.0-78.0) % Lymph % (Auto) (15.5-49.0) % [place] % (Auto) (1.0-9.0) % Eos % (Auto) (0.0-7.0) % Baso % (Auto) (0.0-2.0) % Gran # (1.8-8.0) K/mcL Lymph # (1.5-4.8) K/mcL [place] # (0.1-0.9) K/mcL Eos # (0.0-0.7) K/mcL Baso # (0.0-0.3) K/mcL PT 35.7 H (11.9-14.5) sec INR 3.4 H (0.9-1.1) Sodium 138 (133-145) mmol/L Potassium 5.0 (3.3-5.1) mmol/L Chloride 96 (96-108) mmol/L Carbon Dioxide 26 (22-30) mmol/L Anion Gap 16.0 (8-16) BUN 16 (8-23) mg/dl Creatinine 1.3 H (0.7-1.2) mg/dl GFR Calculation 50 Glucose 134 H (70-105) mg/dL Calcium 9.0 (8.6-10.4) mg/dl Total Bilirubin 0.6 (0.0-1.0) mg/dL AST 21 (0-37) U/l ALT 5 (0-40) U/l Alkaline Phosphatase 139 H (39-117) U/L Troponin T < 0.01 (0-0.03) ng/ml Total Protein 6.6 (5.9-8.4) gm/dL Albumin 3.6 (3.2-5.2) gm/dL Globulin 3.0 (2.2-3.7) gm/dL Albumin/Globulin Ratio 1.2 (1.0-2.3) 06/29/16 Range/Units 15:44 WBC 9.1 (4.5-11.0) K/mcL RBC 3.66 L (4.50-5.90) M/mcL Hgb 11.6 L (13.5-16.5) g/dL Hct 36.2 L (41.0-55.0) % MCV 98.9 (80.0-100.0) fL MCH 31.8 (26.0-34.0) pg MCHC 32.2 (31.0-36.0) g/dL RDW 15.4 H (11.5-14.5) % Plt Count 135 L (140-440) K/mcL MPV 9.1 (7.4-10.4) fL Gran % 65.1 (38.0-78.0) % Lymph % (Auto) 25.9 (15.5-49.0) % [place] % (Auto) 6.8 (1.0-9.0) % Eos % (Auto) 1.9 (0.0-7.0) % Baso % (Auto) 0.3 (0.0-2.0) % Gran # 5.9 (1.8-8.0) K/mcL Lymph # 2.4 (1.5-4.8) K/mcL [place] # 0.6 (0.1-0.9) K/mcL Eos # 0.2 (0.0-0.7) K/mcL Baso # 0 (0.0-0.3) K/mcL PT (11.9-14.5) sec INR (0.9-1.1) Sodium (133-145) mmol/L Potassium (3.3-5.1) mmol/L Chloride (96-108) mmol/L Carbon Dioxide (22-30) mmol/L Anion Gap (8-16) BUN (8-23) mg/dl Creatinine (0.7-1.2) mg/dl GFR Calculation Glucose (70-105) mg/dL Calcium (8.6-10.4) mg/dl Total Bilirubin (0.0-1.0) mg/dL AST (0-37) U/l ALT (0-40) U/l Alkaline Phosphatase (39-117) U/L Troponin T (0-0.03) ng/ml Total Protein (5.9-8.4) gm/dL Albumin (3.2-5.2) gm/dL Globulin (2.2-3.7) gm/dL Albumin/Globulin Ratio (1.0-2.3) - Radiology Data Radiology results reviewed: Yes I reviewed the patient's radiology results. (he had his pelvic fracture of the inferior superior pubic ramus on the left) Disposition Clinical Impression: Syncope, Pelvic fracture Disposition: Xfer As Inpt ([facility]) Condition: Fair Referrals: Gerard Smart MD [Primary Care Provider] - Time of Disposition: 17:55
[2016-06-29] MEDS ORDERED: METHOCARBAMOL 1,000 MG/10 ML VIAL IV ONE (16:08)
[2016-06-29 16:23] LABS: Basophils # (Auto) 0 K/mcL (0.0-0.3); Basophils % (Auto) 0.3 % (0.0-2.0); Eosinophils # (Auto) 0.2 K/mcL (0.0-0.7); Eosinophils % (Auto) 1.9 % (0.0-7.0); Granulocytes % (Auto) 65.1 % (38.0-78.0); Lymphocytes # (Auto) 2.4 K/mcL (1.5-4.8); Lymphocytes % (Auto) 25.9 % (15.5-49.0); Mean Cell Volume 98.9 fL (80.0-100.0); Mean Corpuscular HGB Conc 32.2 g/dL (31.0-36.0); Mean Corpuscular Hemoglobin 31.8 pg (26.0-34.0); Monocytes # (Auto) 0.6 K/mcL (0.1-0.9); Monocytes % (Auto) 6.8 % (1.0-9.0); Platelet Count 135 K/mcL (140-440); RBC 3.66 M/mcL (4.50-5.90); Red Cell Distribution Width 15.4 % (11.5-14.5)
[2016-06-29 16:35] LABS: ALT/SGPT 5 U/l (0-40); Albumin 3.6 gm/dL (3.2-5.2); Albumin/Globulin Ratio 1.2 (1.0-2.3); Alkaline Phosphatase 139 U/L (39-117); Blood Urea Nitrogen 16 mg/dl (8-23)
--- NOTE | 2016-06-29 17:40 | XRay Report ---
CLINICAL INFORMATION: Trauma COMPARISON: 05/26/2016 FINDINGS: Mildly comminuted, minimally displaced fractures of the left superior and inferior pubic rami are appreciated. No evidence of hip fracture. Mild degenerative changes noted in both SI and hip joints. Mild soft tissue swelling over the fracture site IMPRESSION: Comminuted mildly displaced fractures of the left superior and inferior pubic rami. Interpreted and Authenticated by: Burt Sahni 06/29/16
--- NOTE | 2016-06-29 17:42 | XRay Report ---
CLINICAL INFORMATION: Shortness of breath COMPARISON: 05/28/2016 FINDINGS: Moderate cardiomegaly is decreased from study one month prior. Mediastinum is unremarkable. Pulmonary vessels are normal. Densely consolidated atelectasis of the left lower lobe with small effusion is slightly improved. Right basilar infiltrate has resolved since previous study IMPRESSION: 1. Consolidated atelectasis of the left lower lobe with small effusion - slight improvement 2. Interval resolution in right basilar infiltrate 3. Mild cardiomegaly which is decreased. No evidence of acute CHF on today's study Interpreted and Authenticated by: Burt Sahni 06/29/16
[2016-06-29] MEDS ORDERED: ONDANSETRON ODT 4 MG TABLET SL PRN (20:05)
[2016-06-29] MEDS ORDERED: LACTOPEROXI/GLUC OXID/POT THIO 1 EACH GEL..EA. TOPICAL PRN (20:05)
[2016-06-29] MEDS ORDERED: ONDANSETRON 4 MG/2 ML VIAL IV PRN (20:05)
[2016-06-29] MEDS ORDERED: LORazepam 2 MG/ML VIAL IV PRN (20:05)
[2016-06-29] MEDS ORDERED: HYDROmorphone 2 MG/ML SYRINGE IV PRN (20:05)
[2016-06-29] MEDS: DOCUSATE SODIUM 100 MG CAPSULE PO SCH (20:06)
[2016-06-29] MEDS: 0.9 % SODIUM CHLORIDE 1,000 ML IV SCH (20:06)
--- NOTE | 2016-06-29 21:21 | History and Physical Report ---
DATE OF ADMISSION: 06/29/2016 DATE OF ADMISSION: 06/29/2016 REASON FOR ADMISSION: Fall with pelvis fracture, symptomatic bradycardia. HISTORY OF CHIEF COMPLAINT: Mr. Nath is an 86-year-old resident of [place] who fell after having a syncopal episode. He was brought into [facility]. Initial workup was significant for pelvis fracture including superior and inferior pubic ramus. He also had episodes of bradycardia along with apneic spells. Hospitalist Service was consulted after family decided for COMFORT CARE MEASURES and NO AGGRESSIVE INTERVENTIONS. At the time of examination, the patient is accompanied with multiple family members. I had a clear discussion wherein the patient would require further evaluation in light of symptomatic bradycardia and tertiary center transfer for cardiology and pacemaker evaluation. However, patient clearly expressed desire against aggressive intervention and wanted to be kept comfortable. Family is agreeable to same and would wish to be admitted for pain and symptom management, clearly understanding the risk of . Other than that, a limited review of systems was performed in light of patient's comfort and physical examination was deferred. PAST MEDICAL HISTORY: Significant for: 1. Recent hospitalization for pneumonia. 2. Hypothyroidism. 3. Neuropathy. 4. Atrial fibrillation. 5. Anticoagulation for CVA prophylaxis. 6. Chronic pain. 7. Parkinson's disease. CURRENT MEDICATIONS: Reviewed. None will be started, given patient's wishes for COMFORT CARE, requiring only benzodiazepines and opioids for symptom management. Past medical, including family and social history was reviewed and is nonrelevant given admission for COMFORT CARE and palliation. PHYSICAL EXAMINATION: Again was deferred. LIMITED PHYSICAL EXAM: Reveals BMI 25, height is 6 feet. VITAL SIGNS: Blood pressure 138/13, respiratory rate 25, temperature 98.7, pulse 100 irregular, saturations 96 percent on 10 liters of oxygen. GENERAL: The patient breathing nonlabored, drowsy. LABS AND IMAGING: White count 9.1, hemoglobin 11.6. INR 3.4. Sodium 130, potassium 5, creatinine 1.3, BUN 16. LFTs unremarkable. X-ray chest: Left lower lobe consolidated atelectasis, interval resolution of basilar infiltrate. X-ray hip: comminuted, mildly displaced fracture of left superior and inferior pubic rami. ASSESSMENT AND PLAN: An 86-year-old admitted with fractured pelvis involving the left superior and inferior pubic, along with symptomatic bradycardia. 1. Symptomatic bradycardia. Family and patient wishes NOT TO PURSUE AGGRESSIVE INTERVENTION including cardiology consultation and would want palliative measures to initiate including aggressive pain and symptom management. 2. Pelvis fracture. Continue as-needed opioids for pain and symptom management. 3. Other prior medical issues. All medications will be discontinued in light of palliation. The patient will be admitted to medical floor and would meet inpatient criteria based on above symptoms and need for continued pain and symptom management. We anticipate at least 40 to 48 hour hospitalization, 2 midnights. AA:[email or web address] Job ID: [id number] Doc ID: [id number] Prasad BOSS
[2016-06-29] MEDS: 0.9 % SODIUM CHLORIDE 10 ML SYRINGE IV SCH (21:45)
[2016-06-29] MEDS ORDERED: METHOCARBAMOL 1,000 MG/10 ML VIAL IV PRN (22:18)
[2016-06-29] MEDS ORDERED: METHOCARBAMOL 1,000 MG/10 ML VIAL ONE (22:21)
[2016-06-30] MEDS: 0.9 % SODIUM CHLORIDE 10 ML SYRINGE IV SCH ×3 (05:28→20:59)
[2016-06-30] MEDS ORDERED: ACETAMINOPHEN 325 MG TABLET PO PRN ×2 (08:48→09:14)
[2016-06-30] MEDS ORDERED: IPRATROPIUM 2.5 ML AMPUL.NEB NEB PRN (09:14)
[2016-06-30] MEDS ORDERED: DOCUSATE SODIUM 100 MG CAPSULE PO PRN (09:14)
[2016-06-30] MEDS ORDERED: morphine 15 MG TABLET PO PRN (09:38)
[2016-06-30] MEDS ORDERED: ACETAMINOPHEN 1,000 MG/100 ML BOTTLE IV PRN (09:38)
[2016-06-30] MEDS ORDERED: HYDROmorphone 2 MG/ML SYRINGE IV PRN (09:38)
[2016-06-30] MEDS ORDERED: traMADol 50 MG TABLET PO PRN (09:38)
[2016-06-30] MEDS ORDERED: BISACODYL 10 MG SUPP.RECT PR PRN (09:41)
[2016-06-30] MEDS ORDERED: FLEETS ADULT ENEMA PR PRN (09:41)
[2016-06-30] MEDS ORDERED: CARVEDILOL 6.25 MG TABLET PO ONE (09:43)
[2016-06-30] MEDS ORDERED: DILTIAZEM 240 MG CAP.XL.24H PO ONE (09:45)
--- NOTE | 2016-06-30 09:50 | Internal Med Progress Note ---
Medical - PN: Subj Patient information: Note initiated : 06/30/16 at 9:47 am Service Date, if different from initiated Date: [] Patient: August Nath 86 y/o M admitted on 06/29/16 for Hip Pain. Chief Complaint: [] Interval history: 06/29-Patient admitted with fall/syncope and sustaining pelvis fracture. atient refused evaluation including telemetry monitoring/pacemaker in light of bradycardia and wanted to be kept comfortable. patient on aggressive pain and symptom management admitted as inpatient 06/30- case discussed with patient's niece. Expresses desire to continue management of pre-existing medical issues along with pain management and physical therapy as patient appears back at baseline and does not appear to be at risk for imminent . All medications restarted along with continued pain management and physical therapy ordered for pelvis fracture. - Constitutional Vitals: Vital Signs Temp Pulse Resp BP Pulse Ox 97.1 F L 124 H 14 133/75 97 06/30/16 09:20 06/30/16 09:20 06/30/16 09:20 06/30/16 09:20 06/30/16 09:20 Period Temp Pulse Resp BP Sys/Woodward Pulse Ox Last 24 Hr 97.1 F 124 14 133/75 97 Intake and Output 06/29/16 06/30/16 06/30/16 21:59 05:59 13:59 Output Total 200 / 200 Balance -200 / -200 Intake & Output: Intake & Output 06/29/16 06/30/16 06/30/16 21:59 05:59 13:59 Output Total 200 / 200 Balance -200 / -200 Output: Urine Catheter Amount 200 / 200 General appearance: cooperative, no acute distress Exam: pain well controlled Alert and responsive nonlabored breathing Nondistended abdomen Medical - PN: Obj Da - Labs CBC & Chem 7: 06/29/16 15:44 06/29/16 15:43 Meds: Medications Acetaminophen (Tylenol) 0 mg PO Q4-6HP PRN PRN Reason: PAIN/FEVER > 101 Amantadine HCl (Amantadine) 100 mg PO DAILY ION Aspirin (Aspirin) 81 mg PO DAILY ION Baclofen (Lioresal) 10 mg PO TID ION Bisacodyl (Dulcolax) 10 mg SC Q2-3DAYS PRN PRN Reason: Constipation Calcium/Vitamin D (Calcium W/Vit D3) 500 mg PO DAILY [facility] Carbidopa/Levodopa (Sinemet 10/100) 1 tab PO DAILY@1330 [facility] Carbidopa/Levodopa (Sinemet 10/100) 2 tab PO DAILY@1000 [facility] Carvedilol (Coreg) 6.25 mg PO BID [facility] Citalopram Hydrobromide (Celexa) 20 mg PO DAILY [facility] Diagnostic Test (Pha) (Accu-Chek) 1 each FS ACHS [facility] Diltiazem HCl (Cardizem Cd) 240 mg PO DAILY [facility] Docusate Sodium (Colace) 100 mg PO BID [facility] Last Admin: 06/29/16 20:06 Dose: Not Given Gabapentin (Neurontin) 200 mg PO BID [facility] Glucose Oxid/Lactoperoxid/Muramidas (Biotene) 1 each TOPICAL PRN PRN PRN Reason: Dry Mouth Hydromorphone HCl (Dilaudid) 0.5 mg IV Q4-6HP PRN PRN Reason: Pain Sodium Chloride (Sodium Chloride 0.9%) 1,000 mls @ 20 mls/hr IV .Q24H [facility] Last Admin: 06/29/16 20:06 Dose: Not Given Acetaminophen (Ofirmev) 1,000 mg in 100 mls @ 200 mls/hr IV Q6HP PRN PRN Reason: PAIN/FEVER > 101 Ipratropium [place] (Atrovent) 2.5 ml NEB Q6HP PRN PRN Reason: Shortness Of Breath Or Wheezing Levothyroxine Sodium (Synthroid) 50 mcg PO QAMAC [facility] Magnesium Hydroxide (Milk Of Magnesia) 30 ml PO DAILYP PRN PRN Reason: Constipation Methocarbamol (Robaxin) 750 mg IV Q6HP PRN PRN Reason: Muscle Spasm Mirtazapine (Remeron) 15 mg PO DAILY [facility] Morphine Sulfate (Morphine) 15 mg PO DAILYP PRN PRN Reason: CHEST PAIN Morphine Sulfate (Morphine) 15 mg PO BID [facility] Thymol/Chlorophyllin [Chlorophyll 3 Mg] Tablet 1 each PO BID [facility] Ondansetron HCl (Zofran) 4 mg IV Q4HP PRN PRN Reason: Nausea And Vomiting Ondansetron HCl (Zofran Odt) 4 mg SL Q4HP PRN PRN Reason: Nausea And Vomiting Ropinirole HCl (Requip) 0.5 mg PO BID [facility] Simethicone (Mylicon) 80 mg PO TID [facility] Sodium Biphosphate/Sodium Phosphate (Fleets Adult) 1 dose SC Q3-4DAYS PRN PRN Reason: Constipation Sodium Chloride (Saline Flush) 10 ml IV Q8 [facility] Last Admin: 06/30/16 05:28 Dose: 10 ml Spironolactone (Aldactone) 12.5 mg PO Q2D [facility] Tramadol HCl (Ultram) 50 mg PO Q4-6HP PRN PRN Reason: Pain Vitamin D (Vitamin D3) 4,000 unit PO DAILY [facility] Medical - PN: A/P - Time Spent With Patient Total time spent is greater than 50% in coordination of care (as documented) at patient's floor/unit and/or counseling patient: 25 - 35 minutes (1) Pelvic fracture Status: Acute Assessment and plan: * pelvic fracture -continue pain management. Started physical therapy/ ambulation * A. fib rate controlled on diltiazem/Coreg * anticoagulation for CVA prophylaxis restart Coumadin * Hypothyroidism on thyroxine * COPD on duo nebs * History of Parkinson's disease on levodopa carbidopa/amantadine * History of CAD on aspirin * hypertension continue Coreg/spironolactone * chronic pain on morphine plan * Pain management/physical therapy * pre-existing medical condition management as above * Possible discharge to SNFAnd 48 hours if adequate pain management achieved Current Visit: Yes Medical - PN: Qual - VTE Deep Vein Thrombosis/Pulmonary Embolism Present on Admission: No
[2016-06-30] MEDS: CARBIDOPA/LEVODOPA 10/100 TABLET PO SCH ×2 (10:04→14:46)
[2016-06-30] MEDS: MAGNESIUM HYDROXIDE 30 ML ORAL.SUSP PO PRN (10:04)
[2016-06-30] MEDS: ACETAMINOPHEN 325 MG TABLET PO PRN (10:04)
[2016-06-30] MEDS ORDERED: MAGNESIUM CITRATE 300 ML ORAL.SOL PO ONE (11:19)
[2016-06-30] MEDS: METHOCARBAMOL 750 MG TABLET PO PRN ×2 (12:53→20:40)
[2016-06-30] MEDS: BACLOFEN 10 MG TABLET PO SCH ×2 (14:46→20:47)
[2016-06-30] MEDS: DOCUSATE SODIUM 100 MG CAPSULE PO SCH ×2 (17:20→20:49)
[2016-06-30] MEDS: SIMETHICONE 80 MG TAB.CHEW PO SCH ×2 (17:21→20:47)
[2016-06-30] MEDS: GABAPENTIN 100 MG CAPSULE PO SCH (20:47)
[2016-06-30] MEDS: rOPINIRole 0.25 MG TABLET PO SCH (20:48)
[2016-06-30] MEDS: CARVEDILOL 6.25 MG TABLET PO SCH (20:49)
[2016-06-30] MEDS: morphine 15 MG TABLET PO SCH (20:49)
[2016-06-30] MEDS: 0.9 % SODIUM CHLORIDE 1,000 ML IV SCH (20:56)
[2016-06-30] MEDS: [UNRECOGNIZED DRUG - OTHER] PO SCH (21:01)
[2016-07-01] MEDS: LEVOTHYROXINE 50 MCG TABLET PO SCH (06:55)
[2016-07-01] MEDS: METHOCARBAMOL 750 MG TABLET PO PRN ×3 (06:55→23:07)
[2016-07-01] MEDS: 0.9 % SODIUM CHLORIDE 10 ML SYRINGE IV SCH ×3 (06:55→20:52)
[2016-07-01] MEDS: AMANTADINE HCL 100 MG CAPSULE PO SCH (08:51)
[2016-07-01] MEDS: SIMETHICONE 80 MG TAB.CHEW PO SCH ×3 (08:51→20:47)
[2016-07-01] MEDS: GABAPENTIN 100 MG CAPSULE PO SCH ×2 (08:52→20:47)
[2016-07-01] MEDS: VITAMIN D3 1,000 UNIT TABLET PO SCH (08:52)
[2016-07-01] MEDS: ACETAMINOPHEN 325 MG TABLET PO PRN ×3 (08:52→23:07)
[2016-07-01] MEDS: rOPINIRole 0.25 MG TABLET PO SCH ×2 (08:53→20:49)
[2016-07-01] MEDS: DILTIAZEM 240 MG CAP.XL.24H PO SCH (08:54)
[2016-07-01] MEDS: ASPIRIN 81 MG TAB.CHEW PO SCH (08:54)
[2016-07-01] MEDS: CITALOPRAM 20 MG TABLET PO SCH (08:54)
[2016-07-01] MEDS: CARVEDILOL 6.25 MG TABLET PO SCH ×2 (08:54→20:48)
[2016-07-01] MEDS: MIRTAZAPINE 15 MG TABLET PO SCH (08:55)
[2016-07-01] MEDS: morphine 15 MG TABLET PO SCH ×2 (08:55→20:49)
[2016-07-01] MEDS: CALCIUM W/VIT D3 500 MG TABLET PO SCH (08:55)
[2016-07-01] MEDS: DOCUSATE SODIUM 100 MG CAPSULE PO SCH ×2 (08:55→20:47)
[2016-07-01] MEDS: BACLOFEN 10 MG TABLET PO SCH ×3 (08:55→20:48)
[2016-07-01] MEDS ORDERED: MAG OXIDE PO SCH (09:00)
[2016-07-01] MEDS ORDERED: WARFARIN 3 MG TABLET PO SCH (09:00)
[2016-07-01] MEDS ORDERED: CALCIUM PO SCH (09:00)
[2016-07-01] MEDS ORDERED: VITAMIN D3 PO SCH (09:00)
[2016-07-01] MEDS ORDERED: [UNRECOGNIZED DRUG - OTHER] PO SCH (09:00)
[2016-07-01] MEDS: MAGNESIUM HYDROXIDE 30 ML ORAL.SUSP PO PRN (09:28)
--- NOTE | 2016-07-01 09:31 | Internal Med Progress Note ---
Medical - PN: Subj Patient information: Note initiated : 07/01/16 at 9:28 am Service Date, if different from initiated Date: [] Patient: August Nath 86 y/o M admitted on 06/29/16 for Hip Pain/Left Hip Fracture. Chief Complaint: [] Interval history: 06/29-Patient admitted with fall/syncope and sustaining pelvis fracture. atient refused evaluation including telemetry monitoring/pacemaker in light of bradycardia and wanted to be kept comfortable. patient on aggressive pain and symptom management admitted as inpatient 06/30- case discussed with patient's niece. Expresses desire to continue management of pre-existing medical issues along with pain management and physical therapy as patient appears back at baseline and does not appear to be at risk for imminent . All medications restarted along with continued pain management and physical therapy ordered for pelvis fracture. 07/01- Patient experiencing significant pain on movement. family at bedside. no overnight fever chills. Await PT eval and possible SNF transfer in 24-48 hours. Continue home medications. - Constitutional Vitals: Vital Signs Temp Pulse Resp BP Pulse Ox 97.1 F L 86 20 106/64 97 07/01/16 07:18 07/01/16 07:18 07/01/16 07:18 07/01/16 07:18 07/01/16 07:18 Period Temp Pulse Resp BP Sys/Woodward Pulse Ox Last 24 Hr 97.1 F-97.6 F 86-139 20-24 106-129/62-71 97-98 Intake and Output 06/30/16 07/01/16 07/01/16 21:59 05:59 13:59 Intake Total 700 / 700 Output Total 150 / 150 Balance 550 / 550 Intake & Output: Intake & Output 06/30/16 07/01/16 07/01/16 21:59 05:59 13:59 Intake Total 700 / 700 Output Total 150 / 150 Balance 550 / 550 Intake: Oral 700 / 700 Output: Urine Catheter Amount 150 / 150 Other: # Bowel Movements 1 General appearance: cooperative, no acute distress Exam: resting comfortably xcept for pain during movement Nonlabored breathing Minimal lymphedema Medical - PN: Obj Da - Labs CBC & Chem 7: 06/29/16 15:44 06/29/16 15:43 Labs: Abnormal Lab Results 07/01/16 07:16 PT 37.2 H INR 3.6 H Meds: Medications Acetaminophen (Tylenol) 0 mg PO Q4-6HP PRN PRN Reason: PAIN/FEVER > 101 Last Admin: 07/01/16 08:52 Dose: 650 mg Amantadine HCl (Amantadine) 100 mg PO DAILY [facility] Last Admin: 07/01/16 08:51 Dose: 100 mg Aspirin (Aspirin) 81 mg PO DAILY [facility] Last Admin: 07/01/16 08:54 Dose: 81 mg Baclofen (Lioresal) 10 mg PO TID [facility] Last Admin: 07/01/16 08:55 Dose: 10 mg Bisacodyl (Dulcolax) 10 mg RI Q2-3DAYS PRN PRN Reason: Constipation Last Admin: 06/30/16 10:04 Dose: 10 mg Calcium/Vitamin D (Calcium W/Vit D3) 500 mg PO DAILY [facility] Last Admin: 07/01/16 08:55 Dose: 500 mg Carbidopa/Levodopa (Sinemet 10/100) 1 tab PO DAILY@1330 [facility] Last Admin: 06/30/16 14:46 Dose: 1 tab Carbidopa/Levodopa (Sinemet 10/100) 2 tab PO DAILY@1000 [facility] Last Admin: 06/30/16 10:04 Dose: 2 tab Carvedilol (Coreg) 6.25 mg PO BID [facility] Last Admin: 07/01/16 08:54 Dose: 6.25 mg Citalopram Hydrobromide (Celexa) 20 mg PO DAILY [facility] Last Admin: 07/01/16 08:54 Dose: 20 mg Diagnostic Test (Pha) (Accu-Chek) 1 each FS ACHS [facility] Last Admin: 07/01/16 06:55 Dose: 1 each Diltiazem HCl (Cardizem Cd) 240 mg PO DAILY [facility] Last Admin: 07/01/16 08:54 Dose: 240 mg Docusate Sodium (Colace) 100 mg PO BID [facility] Last Admin: 07/01/16 08:55 Dose: Not Given Gabapentin (Neurontin) 200 mg PO BID [facility] Last Admin: 07/01/16 08:52 Dose: 200 mg Glucose Oxid/Lactoperoxid/Muramidas (Biotene) 1 each TOPICAL PRN PRN PRN Reason: Dry Mouth Hydromorphone HCl (Dilaudid) 0.5 mg IV Q4-6HP PRN PRN Reason: Pain Last Admin: 07/01/16 02:52 Dose: 0.5 mg Sodium Chloride (Sodium Chloride 0.9%) 1,000 mls @ 20 mls/hr IV .Q24H [facility] Last Admin: 06/30/16 20:56 Dose: Not Given Acetaminophen (Ofirmev) 1,000 mg in 100 mls @ 200 mls/hr IV Q6HP PRN PRN Reason: PAIN/FEVER > 101 Ipratropium [place] (Atrovent) 2.5 ml NEB Q6HP PRN PRN Reason: Shortness Of Breath Or Wheezing Levothyroxine Sodium (Synthroid) 50 mcg PO QAMAC [facility] Last Admin: 07/01/16 06:55 Dose: 50 mcg Magnesium Hydroxide (Milk Of Magnesia) 30 ml PO DAILYP PRN PRN Reason: Constipation Last Admin: 06/30/16 10:04 Dose: 30 ml Methocarbamol (Robaxin) 750 mg IV Q6HP PRN PRN Reason: Muscle Spasm Methocarbamol (Robaxin) 750 mg PO Q6HP PRN PRN Reason: Muscle Spasm Last Admin: 07/01/16 06:55 Dose: 750 mg Mirtazapine (Remeron) 15 mg PO DAILY [facility] Last Admin: 07/01/16 08:55 Dose: 15 mg Morphine Sulfate (Morphine) 15 mg PO DAILYP PRN PRN Reason: CHEST PAIN Last Admin: 06/30/16 14:46 Dose: 15 mg Morphine Sulfate (Morphine) 15 mg PO BID [facility] Last Admin: 07/01/16 08:55 Dose: 15 mg Thymol/Chlorophyllin [Chlorophyll 3 Mg] Tablet 1 each PO BID [facility] Last Admin: 06/30/16 21:01 Dose: Not Given Ondansetron HCl (Zofran) 4 mg IV Q4HP PRN PRN Reason: Nausea And Vomiting Ondansetron HCl (Zofran Odt) 4 mg SL Q4HP PRN PRN Reason: Nausea And Vomiting Ropinirole HCl (Requip) 0.5 mg PO BID [facility] Last Admin: 07/01/16 08:53 Dose: 0.5 mg Simethicone (Mylicon) 80 mg PO TID [facility] Last Admin: 07/01/16 08:51 Dose: 80 mg Sodium Biphosphate/Sodium Phosphate (Fleets Adult) 1 dose RI Q3-4DAYS PRN PRN Reason: Constipation Last Admin: 06/30/16 14:50 Dose: 1 dose Sodium Chloride (Saline Flush) 10 ml IV Q8 [facility] Last Admin: 07/01/16 06:55 Dose: 10 ml Spironolactone (Aldactone) 12.5 mg PO Q2D [facility] Tramadol HCl (Ultram) 50 mg PO Q4-6HP PRN PRN Reason: Pain Last Admin: 06/30/16 22:59 Dose: 50 mg Vitamin D (Vitamin D3) 4,000 unit PO DAILY [facility] Last Admin: 07/01/16 08:52 Dose: 4,000 unit Medical - PN: A/P - Time Spent With Patient Total time spent is greater than 50% in coordination of care (as documented) at patient's floor/unit and/or counseling patient: 15 - 24 minutes (1) Pelvic fracture Status: Acute Assessment and plan: * Pelvic fracture -continue pain management. attempt PT. * A. fib rate controlled on diltiazem/Coreg * anticoagulation for CVA prophylaxis continue Coumadin. INR 3.6 * Hypothyroidism on thyroxine * COPD on duo nebs. cstable * History of Parkinson's disease on levodopa carbidopa/amantadine. stable * History of CAD on aspirin * hypertension continue Coreg/spironolactone * acute on chronic pain on as needed morphine plan * continue pain management/physical therapy * pre-existing medical condition management as above * sNF transfer coordination to [facility] per case management Current Visit: Yes Medical - PN: Qual - VTE Deep Vein Thrombosis/Pulmonary Embolism Present on Admission: No
[2016-07-01] MEDS: [UNRECOGNIZED DRUG - OTHER] PO SCH ×2 (09:47→20:51)
[2016-07-01] MEDS: CARBIDOPA/LEVODOPA 10/100 TABLET PO SCH ×2 (10:44→13:44)
--- NOTE | 2016-07-01 15:47 | Internal Med Progress Note ---
Medical - PN: Subj Patient information: Note initiated : 07/01/16 at 3:47 pm Service Date, if different from initiated Date: [] Patient: August Nath 86 y/o M admitted on 06/29/16 for Hip Pain/Left Hip Fracture. Chief Complaint: [] Interval history: 06/29-Patient admitted with fall/syncope and sustaining pelvis fracture. atient refused evaluation including telemetry monitoring/pacemaker in light of bradycardia and wanted to be kept comfortable. patient on aggressive pain and symptom management admitted as inpatient 06/30- case discussed with patient's niece. Expresses desire to continue management of pre-existing medical issues along with pain management and physical therapy as patient appears back at baseline and does not appear to be at risk for imminent . All medications restarted along with continued pain management and physical therapy ordered for pelvis fracture. 07/01- Patient experiencing significant pain on movement. family at bedside. no overnight fever chills. Await PT eval and possible SNF transfer in 24-48 hours. Continue home medications. - Constitutional Vitals: Vital Signs Temp Pulse Resp BP Pulse Ox 97.1 F L 86 20 106/64 97 07/01/16 07:18 07/01/16 07:18 07/01/16 07:18 07/01/16 07:18 07/01/16 07:18 Period Temp Pulse Resp BP Sys/Woodward Pulse Ox Last 24 Hr 97.1 F-97.5 F 86-102 20-20 106-129/64-71 97-98 Intake and Output 07/01/16 07/01/16 07/01/16 05:59 13:59 21:59 Intake Total 700 / 700 Output Total 150 / 150 Balance 550 / 550 Intake & Output: Intake & Output 07/01/16 07/01/16 07/01/16 05:59 13:59 21:59 Intake Total 700 / 700 Output Total 150 / 150 Balance 550 / 550 Intake: Oral 700 / 700 Output: Urine Catheter Amount 150 / 150 Other: # Bowel Movements 1 Medical - PN: Obj Da - Labs CBC & Chem 7: 06/29/16 15:44 06/29/16 15:43 Labs: Abnormal Lab Results 07/01/16 07:16 PT 37.2 H INR 3.6 H Meds: Medications Acetaminophen (Tylenol) 0 mg PO Q4-6HP PRN PRN Reason: PAIN/FEVER > 101 Last Admin: 07/01/16 08:52 Dose: 650 mg Amantadine HCl (Amantadine) 100 mg PO DAILY [facility] Last Admin: 07/01/16 08:51 Dose: 100 mg Aspirin (Aspirin) 81 mg PO DAILY [facility] Last Admin: 07/01/16 08:54 Dose: 81 mg Baclofen (Lioresal) 10 mg PO TID [facility] Last Admin: 07/01/16 08:55 Dose: 10 mg Bisacodyl (Dulcolax) 10 mg [place] Q2-3DAYS PRN PRN Reason: Constipation Last Admin: 06/30/16 10:04 Dose: 10 mg Calcium/Vitamin D (Calcium W/Vit D3) 500 mg PO DAILY [facility] Last Admin: 07/01/16 08:55 Dose: 500 mg Carbidopa/Levodopa (Sinemet 10/100) 1 tab PO DAILY@1330 [facility] Last Admin: 07/01/16 13:44 Dose: 1 tab Carbidopa/Levodopa (Sinemet 10/100) 2 tab PO DAILY@1000 [facility] Last Admin: 07/01/16 10:44 Dose: 2 tab Carvedilol (Coreg) 6.25 mg PO BID [facility] Last Admin: 07/01/16 08:54 Dose: 6.25 mg Citalopram Hydrobromide (Celexa) 20 mg PO DAILY [facility] Last Admin: 07/01/16 08:54 Dose: 20 mg Diagnostic Test (Pha) (Accu-Chek) 1 each FS ACHS [facility] Last Admin: 07/01/16 13:44 Dose: Not Given Diltiazem HCl (Cardizem Cd) 240 mg PO DAILY [facility] Last Admin: 07/01/16 08:54 Dose: 240 mg Docusate Sodium (Colace) 100 mg PO BID [facility] Last Admin: 07/01/16 08:55 Dose: Not Given Gabapentin (Neurontin) 200 mg PO BID [facility] Last Admin: 07/01/16 08:52 Dose: 200 mg Glucose Oxid/Lactoperoxid/Muramidas (Biotene) 1 each TOPICAL PRN PRN PRN Reason: Dry Mouth Hydromorphone HCl (Dilaudid) 0.5 mg IV Q4-6HP PRN PRN Reason: Pain Last Admin: 07/01/16 02:52 Dose: 0.5 mg Sodium Chloride (Sodium Chloride 0.9%) 1,000 mls @ 20 mls/hr IV .Q24H [facility] Last Admin: 06/30/16 20:56 Dose: Not Given Acetaminophen (Ofirmev) 1,000 mg in 100 mls @ 200 mls/hr IV Q6HP PRN PRN Reason: PAIN/FEVER > 101 Ipratropium [place] (Atrovent) 2.5 ml NEB Q6HP PRN PRN Reason: Shortness Of Breath Or Wheezing Levothyroxine Sodium (Synthroid) 50 mcg PO QAMAC [facility] Last Admin: 07/01/16 06:55 Dose: 50 mcg Magnesium Hydroxide (Milk Of Magnesia) 30 ml PO DAILYP PRN PRN Reason: Constipation Last Admin: 07/01/16 09:28 Dose: 30 ml Methocarbamol (Robaxin) 750 mg IV Q6HP PRN PRN Reason: Muscle Spasm Methocarbamol (Robaxin) 750 mg PO Q6HP PRN PRN Reason: Muscle Spasm Last Admin: 07/01/16 06:55 Dose: 750 mg Mirtazapine (Remeron) 15 mg PO DAILY [facility] Last Admin: 07/01/16 08:55 Dose: 15 mg Morphine Sulfate (Morphine) 15 mg PO DAILYP PRN PRN Reason: CHEST PAIN Last Admin: 06/30/16 14:46 Dose: 15 mg Morphine Sulfate (Morphine) 15 mg PO BID [facility] Last Admin: 07/01/16 08:55 Dose: 15 mg Thymol/Chlorophyllin [Chlorophyll 3 Mg] Tablet 1 each PO BID [facility] Last Admin: 07/01/16 09:47 Dose: Not Given Ondansetron HCl (Zofran) 4 mg IV Q4HP PRN PRN Reason: Nausea And Vomiting Ondansetron HCl (Zofran Odt) 4 mg SL Q4HP PRN PRN Reason: Nausea And Vomiting Ropinirole HCl (Requip) 0.5 mg PO BID [facility] Last Admin: 07/01/16 08:53 Dose: 0.5 mg Simethicone (Mylicon) 80 mg PO TID [facility] Last Admin: 07/01/16 08:51 Dose: 80 mg Sodium Biphosphate/Sodium Phosphate (Fleets Adult) 1 dose WI Q3-4DAYS PRN PRN Reason: Constipation Last Admin: 06/30/16 14:50 Dose: 1 dose Sodium Chloride (Saline Flush) 10 ml IV Q8 [facility] Last Admin: 07/01/16 15:02 Dose: Not Given Spironolactone (Aldactone) 12.5 mg PO Q2D [facility] Tramadol HCl (Ultram) 50 mg PO Q4-6HP PRN PRN Reason: Pain Last Admin: 06/30/16 22:59 Dose: 50 mg Vitamin D (Vitamin D3) 4,000 unit PO DAILY [facility] Last Admin: 07/01/16 08:52 Dose: 4,000 unit Medical - PN: A/P - Time Spent With Patient Total time spent is greater than 50% in coordination of care (as documented) at patient's floor/unit and/or counseling patient: (1) Pelvic fracture Status: Acute Assessment and plan: * Pelvic fracture -continue pain management. attempt PT. * A. fib rate controlled on diltiazem/Coreg * anticoagulation for CVA prophylaxis continue Coumadin. INR 3.6 * Hypothyroidism on thyroxine * COPD on duo nebs. cstable * History of Parkinson's disease on levodopa carbidopa/amantadine. stable * History of CAD on aspirin * hypertension continue Coreg/spironolactone * acute on chronic pain on as needed morphine plan * continue pain management/physical therapy * pre-existing medical condition management as above * sNF transfer coordination to [place] home per case management Current Visit: Yes Medical - PN: Qual - VTE Deep Vein Thrombosis/Pulmonary Embolism Present on Admission: No
[2016-07-01] MEDS ORDERED: DEXTROSE 50% 50 ML VIAL IV PRN (16:16)
[2016-07-01] MEDS: INSULIN LISPRO 1 UNIT/0.01 ML UNIT SQ SCH ×2 (16:20→20:59)
[2016-07-01] MEDS: 0.9 % SODIUM CHLORIDE 1,000 ML IV SCH (20:51)
[2016-07-02] MEDS: METHOCARBAMOL 750 MG TABLET PO PRN ×2 (05:12→13:50)
[2016-07-02] MEDS: ACETAMINOPHEN 325 MG TABLET PO PRN ×2 (05:12→13:50)
[2016-07-02] MEDS: 0.9 % SODIUM CHLORIDE 10 ML SYRINGE IV SCH ×3 (05:16→21:00)
[2016-07-02] MEDS: INSULIN LISPRO 1 UNIT/0.01 ML UNIT SQ SCH ×4 (08:31→21:14)
[2016-07-02] MEDS: GABAPENTIN 100 MG CAPSULE PO SCH ×2 (08:32→20:56)
[2016-07-02] MEDS: LEVOTHYROXINE 50 MCG TABLET PO SCH (08:32)
[2016-07-02] MEDS: DILTIAZEM 240 MG CAP.XL.24H PO SCH (08:33)
[2016-07-02] MEDS: rOPINIRole 0.25 MG TABLET PO SCH ×2 (08:33→20:57)
[2016-07-02] MEDS: CITALOPRAM 20 MG TABLET PO SCH (08:34)
[2016-07-02] MEDS: BACLOFEN 10 MG TABLET PO SCH ×3 (08:34→20:58)
[2016-07-02] MEDS: CALCIUM W/VIT D3 500 MG TABLET PO SCH (08:34)
[2016-07-02] MEDS: MIRTAZAPINE 15 MG TABLET PO SCH (08:34)
[2016-07-02] MEDS: SIMETHICONE 80 MG TAB.CHEW PO SCH ×3 (08:34→20:57)
[2016-07-02] MEDS: VITAMIN D3 1,000 UNIT TABLET PO SCH (08:35)
[2016-07-02] MEDS: DOCUSATE SODIUM 100 MG CAPSULE PO SCH ×2 (08:35→20:58)
[2016-07-02] MEDS: CARVEDILOL 6.25 MG TABLET PO SCH ×2 (08:35→20:57)
[2016-07-02] MEDS: ASPIRIN 81 MG TAB.CHEW PO SCH (08:35)
[2016-07-02] MEDS: morphine 15 MG TABLET PO SCH ×2 (08:36→20:58)
[2016-07-02] MEDS ORDERED: SPIRONOLACTONE 25 MG TABLET PO SCH (09:00)
[2016-07-02] MEDS: AMANTADINE HCL 100 MG CAPSULE PO SCH (09:59)
[2016-07-02] MEDS: [UNRECOGNIZED DRUG - OTHER] PO SCH ×2 (10:00→21:12)
[2016-07-02] MEDS ORDERED: fentaNYL 25 MCG PATCH TOPICAL SCH (10:00)
[2016-07-02] MEDS: CARBIDOPA/LEVODOPA 10/100 TABLET PO SCH ×2 (10:01→13:50)
--- NOTE | 2016-07-02 10:14 | Internal Med Progress Note ---
Medical - PN: Subj Patient information: Note initiated : 07/02/16 at 10:11 am Service Date, if different from initiated Date: [] Patient: August Nath 86 y/o M admitted on 06/29/16 for Hip Pain/Left Hip Fracture. Chief Complaint: [] Interval history: 06/29-Patient admitted with fall/syncope and sustaining pelvis fracture. atient refused evaluation including telemetry monitoring/pacemaker in light of bradycardia and wanted to be kept comfortable. patient on aggressive pain and symptom management admitted as inpatient 06/30- case discussed with patient's niece. Expresses desire to continue management of pre-existing medical issues along with pain management and physical therapy as patient appears back at baseline and does not appear to be at risk for imminent . All medications restarted along with continued pain management and physical therapy ordered for pelvis fracture. 07/01- Patient experiencing significant pain on movement. family at bedside. no overnight fever chills. Await PT eval and possible SNF transfer in 24-48 hours. Continue home medications. 07/02- patient doing well. No overnight events. No concerns per staff. Complains of pain during movement. Discuss with family. Would like to continue pain medications including patch. Patient does not like IV morphine. Continue antiparkinson drug. Goals of care towards comfort measures. - Constitutional Vitals: Vital Signs Temp Pulse Resp BP Pulse Ox 98.2 F 83 16 122/77 97 07/02/16 07:16 07/01/16 19:55 07/02/16 07:16 07/02/16 07:16 07/02/16 07:16 Period Temp Pulse Resp BP Sys/Woodward Pulse Ox Last 24 Hr 98.2 F-98.3 F 83 16-16 101-122/62-77 97-97 Intake and Output 07/01/16 07/02/16 07/02/16 21:59 05:59 13:59 Intake Total 175 / 175 Output Total 200 / 200 200 / 200 Balance -200 / -200 -25 / -25 Intake & Output: Intake & Output 07/01/16 07/02/16 07/02/16 21:59 05:59 13:59 Intake Total 175 / 175 Output Total 200 / 200 200 / 200 Balance -200 / -200 -25 / -25 Intake: Oral 175 / 175 Output: Urine Catheter Amount 200 / 200 200 / 200 Other: Meal Dinner Percent of Meal Consumed 75% Feeding Ability Total Assistance # Bowel Movements 1 General appearance: cooperative, no acute distress Exam: alert Minimal pain during movement around left hip Nondistressed breathing Medical - PN: Obj Da - Labs CBC & Chem 7: 06/29/16 15:44 06/29/16 15:43 Labs: Abnormal Lab Results 07/02/16 07/01/16 03:50 07:16 PT 44.4 H 37.2 H INR 4.5 H 3.6 H Meds: Medications Acetaminophen (Tylenol) 0 mg PO Q4-6HP PRN PRN Reason: PAIN/FEVER > 101 Last Admin: 07/02/16 05:12 Dose: 650 mg Amantadine HCl (Amantadine) 100 mg PO DAILY [facility] Last Admin: 07/02/16 09:59 Dose: 100 mg Aspirin (Aspirin) 81 mg PO DAILY [facility] Last Admin: 07/02/16 08:35 Dose: 81 mg Baclofen (Lioresal) 10 mg PO TID [facility] Last Admin: 07/02/16 08:34 Dose: 10 mg Bisacodyl (Dulcolax) 10 mg [place] Q2-3DAYS PRN PRN Reason: Constipation Last Admin: 06/30/16 10:04 Dose: 10 mg Calcium/Vitamin D (Calcium W/Vit D3) 500 mg PO DAILY [facility] Last Admin: 07/02/16 08:34 Dose: 500 mg Carbidopa/Levodopa (Sinemet 10/100) 1 tab PO DAILY@1330 [facility] Last Admin: 07/01/16 13:44 Dose: 1 tab Carbidopa/Levodopa (Sinemet 10/100) 2 tab PO DAILY@1000 [facility] Last Admin: 07/02/16 10:01 Dose: 2 tab Carvedilol (Coreg) 6.25 mg PO BID [facility] Last Admin: 07/02/16 08:35 Dose: 6.25 mg Citalopram Hydrobromide (Celexa) 20 mg PO DAILY [facility] Last Admin: 07/02/16 08:34 Dose: 20 mg Dextrose (Dextrose 50%) 0 ml IV UD PRN PRN Reason: Hypoglycemia Diagnostic Test (Pha) (Accu-Chek) 1 each FS ACHS [facility] Last Admin: 07/02/16 07:39 Dose: 1 each Diltiazem HCl (Cardizem Cd) 240 mg PO DAILY [facility] Last Admin: 07/02/16 08:33 Dose: 240 mg Docusate Sodium (Colace) 100 mg PO BID [facility] Last Admin: 07/02/16 08:35 Dose: Not Given Fentanyl (Duragesic) 25 mcg TOPICAL Q72H [facility] Last Admin: 07/02/16 09:59 Dose: 25 mcg Gabapentin (Neurontin) 200 mg PO BID [facility] Last Admin: 07/02/16 08:32 Dose: 200 mg Glucose Oxid/Lactoperoxid/Muramidas (Biotene) 1 each TOPICAL PRN PRN PRN Reason: Dry Mouth Hydromorphone HCl (Dilaudid) 0.5 mg IV Q4-6HP PRN PRN Reason: Pain Last Admin: 07/01/16 02:52 Dose: 0.5 mg Sodium Chloride (Sodium Chloride 0.9%) 1,000 mls @ 20 mls/hr IV .Q24H [facility] Last Admin: 07/01/16 20:51 Dose: Not Given Acetaminophen (Ofirmev) 1,000 mg in 100 mls @ 200 mls/hr IV Q6HP PRN PRN Reason: PAIN/FEVER > 101 Insulin Human Lispro (Humalog) 0 unit SQ ACHS [facility] PRN Reason: Protocol Last Admin: 07/02/16 08:31 Dose: 1 unit Ipratropium [place] (Atrovent) 2.5 ml NEB Q6HP PRN PRN Reason: Shortness Of Breath Or Wheezing Levothyroxine Sodium (Synthroid) 50 mcg PO QAMAC [facility] Last Admin: 07/02/16 08:32 Dose: 50 mcg Magnesium Hydroxide (Milk Of Magnesia) 30 ml PO DAILYP PRN PRN Reason: Constipation Last Admin: 07/01/16 09:28 Dose: 30 ml Methocarbamol (Robaxin) 750 mg IV Q6HP PRN PRN Reason: Muscle Spasm Methocarbamol (Robaxin) 750 mg PO Q6HP PRN PRN Reason: Muscle Spasm Last Admin: 07/02/16 05:12 Dose: 750 mg Mirtazapine (Remeron) 15 mg PO DAILY [facility] Last Admin: 07/02/16 08:34 Dose: 15 mg Morphine Sulfate (Morphine) 15 mg PO DAILYP PRN PRN Reason: CHEST PAIN Last Admin: 06/30/16 14:46 Dose: 15 mg Morphine Sulfate (Morphine) 15 mg PO BID [facility] Last Admin: 07/02/16 08:36 Dose: 15 mg Thymol/Chlorophyllin [Chlorophyll 3 Mg] Tablet 1 each PO BID [facility] Last Admin: 07/02/16 10:00 Dose: Not Given Ondansetron HCl (Zofran) 4 mg IV Q4HP PRN PRN Reason: Nausea And Vomiting Ondansetron HCl (Zofran Odt) 4 mg SL Q4HP PRN PRN Reason: Nausea And Vomiting Ropinirole HCl (Requip) 0.5 mg PO BID [facility] Last Admin: 07/02/16 08:33 Dose: 0.5 mg Simethicone (Mylicon) 80 mg PO TID [facility] Last Admin: 07/02/16 08:34 Dose: 80 mg Sodium Biphosphate/Sodium Phosphate (Fleets Adult) 1 dose [place] Q3-4DAYS PRN PRN Reason: Constipation Last Admin: 06/30/16 14:50 Dose: 1 dose Sodium Chloride (Saline Flush) 10 ml IV Q8 [facility] Last Admin: 07/02/16 05:16 Dose: 10 ml Spironolactone (Aldactone) 12.5 mg PO Q2D [facility] Last Admin: 07/02/16 08:33 Dose: 12.5 mg Tramadol HCl (Ultram) 50 mg PO Q4-6HP PRN PRN Reason: Pain Last Admin: 06/30/16 22:59 Dose: 50 mg Vitamin D (Vitamin D3) 4,000 unit PO DAILY [facility] Last Admin: 07/02/16 08:35 Dose: 4,000 unit Medical - PN: A/P - Time Spent With Patient Total time spent is greater than 50% in coordination of care (as documented) at patient's floor/unit and/or counseling patient: 15 - 24 minutes (1) Pelvic fracture Status: Acute Assessment and plan: * Pelvic fracture -continue pain management. Discontinue physical therapy due to discomfort * A. fib rate controlled on diltiazem/Coreg * anticoagulation for CVA prophylaxis- discontinue anticoagulation * Hypothyroidism on thyroxine * COPD on duo nebs. stable * History of Parkinson's disease continue levodopa carbidopa/amantadine. stable * History of CAD on aspirin * hypertension continue Coreg/spironolactone * acute on chronic pain on as needed oral morphine/fentanyl patch plan * continue pain management * discontinue physical therapy due to discomfort * fentanyl patch * pre-existing medical condition management as above * SNF placement once coordinated Current Visit: Yes Medical - PN: Qual - VTE Deep Vein Thrombosis/Pulmonary Embolism Present on Admission: No
[2016-07-02] MEDS: 0.9 % SODIUM CHLORIDE 1,000 ML IV SCH (21:11)
[2016-07-03] MEDS: ACETAMINOPHEN 325 MG TABLET PO PRN (04:54)
[2016-07-03] MEDS: METHOCARBAMOL 750 MG TABLET PO PRN (04:54)
[2016-07-03] MEDS: 0.9 % SODIUM CHLORIDE 10 ML SYRINGE IV SCH (06:20)
[2016-07-03] MEDS: INSULIN LISPRO 1 UNIT/0.01 ML UNIT SQ SCH (08:19)
[2016-07-03] MEDS: CITALOPRAM 20 MG TABLET PO SCH (08:40)
[2016-07-03] MEDS: ASPIRIN 81 MG TAB.CHEW PO SCH (08:41)
[2016-07-03] MEDS: VITAMIN D3 1,000 UNIT TABLET PO SCH (08:41)
[2016-07-03] MEDS: LEVOTHYROXINE 50 MCG TABLET PO SCH (08:41)
[2016-07-03] MEDS: DILTIAZEM 240 MG CAP.XL.24H PO SCH (08:41)
[2016-07-03] MEDS: SIMETHICONE 80 MG TAB.CHEW PO SCH (08:42)
[2016-07-03] MEDS: morphine 15 MG TABLET PO SCH (08:42)
[2016-07-03] MEDS: BACLOFEN 10 MG TABLET PO SCH (08:42)
[2016-07-03] MEDS: GABAPENTIN 100 MG CAPSULE PO SCH (08:43)
[2016-07-03] MEDS: MIRTAZAPINE 15 MG TABLET PO SCH (08:44)
[2016-07-03] MEDS: AMANTADINE HCL 100 MG CAPSULE PO SCH (08:44)
[2016-07-03] MEDS: rOPINIRole 0.25 MG TABLET PO SCH (08:44)
[2016-07-03] MEDS: DOCUSATE SODIUM 100 MG CAPSULE PO SCH (08:52)
[2016-07-03] MEDS: [UNRECOGNIZED DRUG - OTHER] PO SCH (08:52)
--- NOTE | 2016-07-03 10:01 | Discharge Summary ---
Medical - DS: Prov Patient information: Note initiated : 07/03/16 at 9:57 am Service Date, if different from initiated Date: [] Patient: August Nath 86 y/o M admitted on 06/29/16 for Hip Pain/Left Hip Fracture. Chief Complaint: [] Date of admission: 06/29/16 19:45 Discharge date: 07/03/16 Primary care physician: [f_Reg Prim Care Provider] Medical - DS: Meds - Discharge Medications Prescriptions: LORazepam [Lorazepam Intensol] 1 mg PO Q4H PRN #30 ml PRN Reason: Anxiety Methocarbamol [Robaxin] 750 mg PO Q6HP PRN #30 tablet PRN Reason: Muscle Spasm fentaNYL [Duragesic] 25 mcg TOPICAL Q72H #7 patch Active and Home Medications: Home Medications Acetaminophen [Tylenol] 325 mg PO Q4HP PRN 05/26/16 [History Confirmed 06/29/16 Last Taken Unknown] Amantadine HCl [Amantadine] 100 mg PO DAILY 05/26/16 [History Confirmed Last Taken Unknown] Aspirin [Aron Chewable Aspirin] 81 mg PO DAILY 05/26/16 [History Confirmed Last Taken Unknown] Baclofen [Lioresal] 10 mg PO TID 05/26/16 [History Confirmed 06/29/16 Last Taken Unknown] Carvedilol [Coreg] 6.25 mg PO BID 05/26/16 [History Confirmed 06/29/16 Last Taken Unknown] Citalopram [Celexa] 20 mg PO DAILY 05/26/16 [History Confirmed 06/29/16 Last Taken Unknown] Diltiazem HCl [Cartia Xt] 240 mg PO DAILY 05/26/16 [History Confirmed 06/29/16 Last Taken Unknown] Gabapentin [Neurontin] 200 mg PO BID 05/26/16 [History Confirmed 06/29/16 Last Taken Unknown] Levothyroxine Sodium [Tirosint] 50 mcg PO DAILY 05/26/16 [History Confirmed Last Taken Unknown] Mirtazapine [Remeron] 15 mg PO DAILY 05/26/16 [History Confirmed 06/29/16 Last Taken Unknown] Simethicone [Mylicon] 1 each PO TID 05/26/16 [History Confirmed 06/29/16 Last Taken Unknown] morphine SULFATE [Morphine Sulfate] 15 mg PO DAILY 05/26/16 [History Confirmed 06/29/16 Last Taken Unknown] rOPINIRole HCL [Requip] 0.5 mg PO BID 05/26/16 [History Confirmed 06/29/16 Last Taken Unknown] Accu-Chek 1 each FS ACHS strip 05/30/16 [Rx Confirmed 06/29/16 Last Taken Unknown] Acetaminophen [Tylenol] 650 mg PO Q6HP PRN #0 tablet 05/30/16 [Rx Confirmed Last Taken Unknown] Carbidopa/Levodopa 10/100 [Sinemet 10/100] 1 tab PO DAILY@1330 tablet 05/30/16 [Rx Confirmed 06/29/16 Last Taken Unknown] Carbidopa/Levodopa 10/100 [Sinemet 10/100] 2 tab PO DAILY@1000 tablet 05/30/16 [Rx Confirmed 06/29/16 Last Taken Unknown] Docusate Sodium [Colace] 100 mg PO BID PRN #0 capsule 05/30/16 [Rx Confirmed Last Taken Unknown] Ipratropium [Atrovent] 2.5 ml NEB Q6HP PRN #0 ampul.neb 05/30/16 [Rx Confirmed 06/29/16 Last Taken Unknown] Magnesium Hydroxide [Milk of Magnesia] 30 ml PO DAILYP PRN #0 oral.susp [Rx Confirmed 06/29/16 Last Taken Unknown] morphine 15 mg PO BID tablet 05/30/16 [Rx Confirmed 06/29/16 Last Taken Unknown ] LORazepam [Lorazepam Intensol] 1 mg PO Q4H PRN #30 ml 07/03/16 [Rx Last Taken Unknown] Methocarbamol [Robaxin] 750 mg PO Q6HP PRN #30 tablet 07/03/16 [Rx Last Taken Unknown] fentaNYL [Duragesic] 25 mcg TOPICAL Q72H #7 patch 07/03/16 [Rx Last Taken Unknown] Medical - DS: Hosp Hospital course: DISCHARGE DIAGNOSIS * Pelvic fracture -on comfort care measures. Refused physical therapy due to discomfort * Acute on chronic pain on as needed oral morphine/fentanyl patch * symptomatic bradycardia- family and patient refused pacemaker placement * COPD -continue bronchodilators as needed * History of Parkinson's disease continue levodopa carbidopa/amantadine o alleviate symptoms * History of CAD, hypertension/ Hypothyroidism, A. fib- home medications for comfort Brief hospital course Mr. Nath is a 86 year old male admitted after a fall secondary to symptomatic bradycardia sustaining pelvic fracture. 06/29-Patient admitted with fall/syncope and sustaining pelvis fracture. atient refused evaluation including telemetry monitoring/pacemaker in light of bradycardia and wanted to be kept comfortable. patient on aggressive pain and symptom management admitted as inpatient 06/30- case discussed with patient's niece. Expresses desire to continue management of pre-existing medical issues along with pain management and physical therapy as patient appears back at baseline and does not appear to be at risk for imminent . All medications restarted along with continued pain management and physical therapy ordered for pelvis fracture. 07/01- Patient experiencing significant pain on movement. family at bedside. no overnight fever chills. Await PT eval and possible SNF transfer in 24-48 hours. Continue home medications. 07/02- patient doing well. No overnight events. No concerns per staff. Complains of pain during movement. Discuss with family. Would like to continue pain medications including patch. Patient does not like IV morphine. Continue antiparkinson drug. Goals of care towards comfort measures. 07/03- Patient transferred to SNF on comfort care measures including aggressive pain and symptom management without physical therapy. Call care directed towards comfort including diet and medications Discharge diagnosis: pelvis fracture, pain management, comfort care - Time Spent with Patient Total time spent providing and/or coordinating discharge services: Greater than 30 minutes Medical - DS: Exam - Constitutional Vitals: Vital Signs Temp Pulse Resp BP Pulse Ox 07/03/16 08:21 20 07/03/16 07:47 98.6 F 75 6 L 100/65 97 07/02/16 20:00 98.3 F 68 14 95/59 97 Intake and Output 07/02/16 07/03/16 07/03/16 21:59 05:59 13:59 Intake Total 560 / 560 175 / 175 Output Total 425 / 425 250 / 250 Balance 135 / 135 -75 / -75 Intake: Oral 560 / 560 175 / 175 Output: Urine Catheter Amount 425 / 425 250 / 250 Other: Meal Dinner Percent of Meal Consumed 100% Feeding Ability Total Assistance Weight 170 lb General appearance: cooperative, no acute distress Additional comments: comfortable Well rested Nonlabored breathing Medical - DS: Data Labs on day of discharge: Labs from last 24 hours 07/03/16 03:58 PT 40.4 H INR 4.0 H Medical - DS: A/P - Patient/Caregiver Discharge Instructions Activity: increase activity as tolerated, resume usual activities as tolerated Diet: Regular Diet (per comfort) Additional Instructions: diet and activity and medications for comfort Transfer to [facility] Pain medications as needed Prescriptions: LORazepam [Lorazepam Intensol] 1 mg PO Q4H PRN #30 ml PRN Reason: Anxiety Methocarbamol [Robaxin] 750 mg PO Q6HP PRN #30 tablet PRN Reason: Muscle Spasm fentaNYL [Duragesic] 25 mcg TOPICAL Q72H #7 patch - Problem Maintenance (1) Pelvic fracture Status: Acute - Follow up Plan Follow up with: Gerard Smart MD [Primary Care Provider] - Disposition: [facility] Prognosis: Serious Rehab Potential: Undetermined I certify that the patient requires SNF services: Yes Overall status at discharge: patient is not back to baseline Medical - DS: Qual - VTE Deep Vein Thrombosis/Pulmonary Embolism Present on Admission: No
[2016-07-03] MEDS: CARBIDOPA/LEVODOPA 10/100 TABLET PO SCH (10:26)
[2016-07-03] MEDS: CARVEDILOL 6.25 MG TABLET PO SCH (10:28)
== END 2016-07-03 11:04 | DRG 536 ==
LOC: ED 15:17 → ICU 19:40
PROVIDERS: ADMIT Internal Medicine; ATTEND Internal Medicine